=== PATIENT | male | born 1980 | race Caucasian/White ===

== ENCOUNTER 2018-07-31 11:12 | Outpatient (CLI) | payer MEDICAID, SELFPAY ==
[2018-07-31 11:35] LABS: Abs Immature Grans 0.02 k/cumm (0.0-0.09); Absolute Basophil Count 0.09 k/cumm (0.0-0.2); Absolute Eosinophil Count 0.34 k/cumm (0.0-0.7); Absolute Lymphocyte Count 2.02 k/cumm (1.2-3.4); Absolute Monocyte Count 0.98 k/cumm (0.11-0.7); Absolute Neutrophil Count 4.73 k/cumm (1.2-6.7); Basophils % 1.1; Eosinophils % 4.2; Immature Grans % 0.2; Lymphocytes % 24.7; Mean Corp. HGB Concentration 35.6 g/dL (32.0-36.0); Mean Corpuscular Hemoglobin 32.1 pg (27.0-33.0); Mean Corpuscular Volume 90.4 fL (80-95); Mean Platelet Volume 9.1 fL (8.0-11.0); Neutrophils % 57.8; Platelet Count 225 x1000/uL (130-400); RBC 4.98 m/cumm (4.50-6.00); RBC Distribution Width 12.4 % (11.8-14.1); White Blood Cell Count 8.18 k/cumm (4.4-10.8)
[2018-07-31 11:48] LABS: VALPROIC ACID 41.9 ug/mL (50-100)
[2018-07-31 12:49] LABS: ALT 35 U/L (12-78); AST 18 U/L (15-37); Albumin 4.2 g/dL (3.4-5.0); Alkaline Phosphatase 71 U/L (46-116); Anion Gap 13.2 mmol/L (3-11); BUN 8 mg/dL (7-18); Bilirubin, Total 0.2 mg/dL (0.2-1.0); CO2 28.8 mmol/L (21.0-32.0); CREATININE 0.75 mg/dL (0.70-1.30); Calcium 9.5 mg/dL (8.5-10.1); Chloride 97 mmol/L (98-107); Glucose 83 mg/dL (70-100); Potassium 3.7 mmol/L (3.5-5.1); Sodium 139 mmol/L (136-145); Total Protein 7.4 g/dL (6.4-8.2)
== END 2018-07-31 11:32 ==
PROVIDERS: PCP Nurse Practitioner Family; Visit Provider Nurse Practitioner Family
DX: F25.0 Schizoaffective disorder, bipolar type (principal); Z51.81 Encounter for therapeutic drug level monitoring; Z79.899 Other long term (current) drug therapy
CPT/HCPCS: 36415; 80053; 80164; 85025

== ENCOUNTER 2019-04-08 00:47 | Outpatient (CLI) | payer MEDICAID, SELFPAY ==
[2019-04-08] MEDS: Omnipaque 350 MG/ML 100 ML BTL IJ (09:59)
--- NOTE | 2019-04-08 15:00 | DI.CT_ITS ---
SYMPTOM/DIAGNOSIS: ABDOMINAL PAIN R10.9 CT ABDOMEN AND PELVIS: There are no prior comparison exams. Images performed from the lung bases through the ischial tuberosities after IV and oral contrast. The heart size is normal. The lung bases are clear. The liver, gallbladder, spleen, pancreas, kidneys and adrenals are unremarkable. The appendix appears normal. There is some wall thickening in the sigmoid colon likely representing muscular hypertrophy. Diverticula are seen in this region. There is no evidence of diverticulitis. There is no small bowel dilatation. No free air or free fluid is seen. The prostate and bladder appear normal. There are small bilateral fatty containing inguinal hernias. The aorta is normal in diameter. There has been prior anterior abdominal wall hernia repair. IMPRESSION: Diverticulosis. No acute abnormality.
== END 2019-04-08 01:07 ==
PROVIDERS: PCP Nurse Practitioner Family; Visit Provider Nurse Practitioner Family
DX: R10.9 Unspecified abdominal pain (principal); K57.30 Diverticulosis of large intestine without perforation or abscess without bleeding; K40.20 Bilateral inguinal hernia, without obstruction or gangrene, not specified as recurrent
CPT/HCPCS: 74177; J3490

== ENCOUNTER 2019-07-01 00:59 | Outpatient (CLI) | payer MEDICAID, SELFPAY ==
--- NOTE | 2019-07-01 10:06 | DI.US_ITS ---
APPROVED REPORT EXAM: Comprehensive 2D, Doppler, and color-flow Echocardiogram Patient Location: In-Patient [employer] Mixer: Margarita Mclaughlin [facility] ([place]) Rhythm: Tachycardia Indications: cardiac murmur r01.1 Conclusion Left Ventricle : The left ventricle is normal size. Left ventricular systolic function is hyperdynami c. There is top normal left ventricular wall thickness. There is normal LV segmental wall motion. LVE F is 65-70%. The left ventricular diastolic function is normal. Right Ventricle : Right ventricle is mildly dilated. The right ventricular systolic function is noemi l. Atria : The left atrium size is normal. The right atrium size is normal. Aortic Valve : The aortic valve is normal in structure. Aortic valve is trileaflet. No aortic regurgi tation is present. There is no aortic valvular stenosis. Mitral Valve : Mitral valve leaflets are mildly thickened. No evidence of mitral valve stenosis. Ther e is no mitral valve regurgitation noted. Tricuspid Valve : The tricuspid valve is normal in structure. Mild tricuspid regurgitation. Great Vessels : IVC is normal in size and collapses >50% with inspiration. Estimated RVSP is 24-28 m mHg. There is no prior echocardiogram available for comparison. Wall motion Left Ventricle The left ventricle is normal size. Left ventricular systolic function is hyperdynamic. There is top n ormal left ventricular wall thickness. There is normal LV segmental wall motion. The left ventricular diastolic function is normal. LVEF is 65-70%. Right Ventricle Right ventricle is mildly dilated. The right ventricular systolic function is normal. Atria The left atrium size is normal. The right atrium size is normal. Aortic Valve The aortic valve is normal in structure. Aortic valve is trileaflet. There is no aortic valvular sten osis. No aortic regurgitation is present. Mitral Valve Mitral valve leaflets are mildly thickened. No evidence of mitral valve stenosis. There is no mitral valve regurgitation noted. Tricuspid Valve The tricuspid valve is normal in structure. Mild tricuspid regurgitation. Great Vessels The aortic root is normal in size. IVC is normal in size and collapses >50% with inspiration. Estimat ed RVSP is 24-28 mmHg. Pericardium There is no pericardial effusion. 2D Dimensions IVSd 1.20 cm M: 0.6-1.2 LV EDV A2C 72.60 mL PWd 1.15 cm M: 0.6 - 1.2 LV EDV A4C 110.70 mL LVDd 4.15 cm M: 4.2 - 5.8 LA Volume Index A2C 15.75 mL/m2 LVDs 2.50 cm M: 2.5 - 4.0 LA Volume Index A4C 29.07 mL/m2 Aortic Root 3.00 cm M: 3.1 - 3.7 LA Volume Index Biplane 21.55 mL/m2 RA Area A4C 14.15 cm2 LA Area A4C 18.02 cm2 LVOT 2.05 cm (M/F) 1.5-2.5 LA Area A2C 13.35 cm2 Ascending Aorta 2.84 cm M: 2.6 - 3.4 EF AP4 74.80 % LVEF (Teich) 70.50 % EF AP2 66.53 % LVEF (Nogueira's) 70.92 % M: 52 - 72 EF BP 70.92 % LV Volume 67.43 mL M: 62 - 150 LV Volume Index 33.88 mL/m2 M: 34 - 74 FS 39.50 % LV Diastology E/A Ratio 1.1 MED E' 0.10 (>0.07 m/s) LV E/e MED 8.25 (<14) LAT E' 0.08 (>0.1 m/s) LV E/e LAT 9.50 (<14) Pulm Vein s 1.01 m/s PV S/D Ratio 2.02 Pulm Vein d 0.50 m/s Aortic Valve LVOT Area 3.31 cm2 LVOT Peak Abdi. 1.65 m/s LVOT Mean Abdi. 1.24 m/s LVOT Peak Gr. 11.45 mmHg NICKI Vmax Index 1.37 cm2/m2 LVOT Mean Gr. 6.80 mmHg LVOT VTI 0.25 m NICKI Mean Abdi. Index 1.41 cm2/m2 AoV Peak Abdi. 2.05 (0.5-1.3 m/s) AoV Mean Abdi. 1.46 m/s AO Peak GR. 16.73 mmHg AO Mean GR. 9.51 (<5 mmHg) VTI Ratio 0.75 NICKI (VTI) 2.48 (2.5-4.5 cm2) NICKI (VTI) Index 1.24 cm/m2 Mitral Valve MV E Max Abdi. 0.80 (0.4-1.3 m/s) MV A Velocity 0.75 (0.4-1.3 m/s) E/A Ratio 1.04 MV Decel. Time 207.30 (160-240 msec) MV PHT 60.12 msec MVA PHT 3.65 cm2 Pulmonary Valve RVOT Peak Gr. 5.13 mmHg RVOT Peak Abdi. 1.13 m/s RVOT Mean Gr. 3.70 mmHg RVOT VTI 0.20 m Tricuspid Valve TR P. Velocity 2.46 m/s TV Regurg Vmax 2.46 m/s RAP Estimate 3.00 mmHg RVSP 27.00 mmHg TR P. Gradient 24.20 mmHg
== END 2019-07-01 01:19 ==
PROVIDERS: PCP Nurse Practitioner Family; Visit Provider Nurse Practitioner Family
DX: R01.1 Cardiac murmur, unspecified (principal); I51.7 Cardiomegaly; I10 Essential (primary) hypertension
CPT/HCPCS: 93306

== ENCOUNTER 2019-09-24 09:51 | Outpatient (REF) | payer MEDICAID, SELFPAY ==
[2019-09-24 11:48] LABS: HGB 13.7 g/dL (13.5-17.5); Mean Corp. HGB Concentration 35.1 g/dL (32.0-36.0); Mean Corpuscular Hemoglobin 30.9 pg (27.0-33.0); Mean Corpuscular Volume 87.8 fL (80-95); Mean Platelet Volume 9.8 fL (8.0-11.0); Platelet Count 228 x1000/uL (130-400); RBC 4.44 m/cumm (4.50-6.00); RBC Distribution Width 12.3 % (11.8-14.1); White Blood Cell Count 7.31 k/cumm (4.4-10.8)
[2019-09-24 11:55] LABS: ALT 20 U/L (16-63); AST 28 U/L (15-37); Anion Gap 11.5 mmol/L (3-11); BUN 33 mg/dL (7-18); CO2 25.5 mmol/L (21.0-32.0); CREATININE 1.23 mg/dL (0.70-1.30); Calcium 9.3 mg/dL (8.5-10.1); Chloride 102 mmol/L (98-107); Glucose 105 mg/dL (74-106); Potassium 4.8 mmol/L (3.5-5.1); Sodium 139 mmol/L (136-145)
[2019-09-24 11:59] LABS: VALPROIC ACID 35.5 ug/mL (50-100)
[2019-09-25 11:43] LABS: Hepatitis C Ab w Rflx HCV PCR Negative (Negative)
[2019-09-25 11:45] LABS: HBs Antibody, Quant <3.1 mIU/mL (See Note); Hepatitis B Surface Ab Negative (See Note)
[2019-09-25 11:48] LABS: HIV-1/2 Ag & Ab Screen Negative (Negative)
== END 2019-09-24 10:11 ==
LOC: NCHCN 09:51
PROVIDERS: PCP Nurse Practitioner Family; Visit Provider Nurse Practitioner Family
DX: Z11.59 Encounter for screening for other viral diseases (principal); Z11.4 Encounter for screening for human immunodeficiency virus [HIV]; I10 Essential (primary) hypertension; Z51.81 Encounter for therapeutic drug level monitoring; Z00.00 Encounter for general adult medical examination without abnormal findings
CPT/HCPCS: 80048; 85027; 86706; 86803; 87389; 80164; 84450; 84460; 86702

== ENCOUNTER 2019-10-14 01:45 | Outpatient (CLI) | payer MEDICAID, SELFPAY ==
--- NOTE | 2019-10-14 08:45 | DI.MRI_ITS ---
EXAM: MR ABDOMEN WO CLINICAL HISTORY: scan above umbilicus to ASIS, H/O UMBILICAL HERNIA REPAIR, CHRONIC PAIN,Z98.890,Z8 7.19,G89.28,POST PROCEDURAL PAIN TECHNIQUE: Multiplanar multisequence MRI was performed. COMPARISON: CT ABDOMEN PELVIS W from 04/08/2019 FINDINGS: The exam is limited by respiratory motion. Again noted is evidence of an anterior abdominal wall h ernia repair. There has been no change in the appearance of the umbilicus with a small area of fatty containing hernia. No new hernias are identified. There are no abnormal collections in the anterio r abdominal wall. The liver, gallbladder, spleen, pancreas, adrenals and kidneys are unremarkable. Urinary bladder is nearly empty. There is no bowel dilatation. The aorta is normal in diameter. Th ere is no ascites. IMPRESSION: Stable appearance of anterior abdominal wall. No evidence of a new hernia or other acute abnormality . DATA REPOSITORY:
== END 2019-10-14 02:05 ==
PROVIDERS: PCP Nurse Practitioner Family; Visit Provider Surgery
DX: G89.28 Other chronic postprocedural pain (principal); Z98.890 Other specified postprocedural states; K42.9 Umbilical hernia without obstruction or gangrene
CPT/HCPCS: 74181

== ENCOUNTER 2019-11-22 11:44 | Emergency (ER) | payer MEDICAID, SELFPAY ==
[2019-11-22] VITALS (38 sets, daily range): BP systolic 93–129; BP diastolic 50–78; PULSE 96–119; RESP 12–26; TEMP 36.1; O2SAT 91–99
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
[2019-11-22 11:57] LABS: Abs Immature Grans 0.07 k/cumm (0.0-0.09); Absolute Basophil Count 0.06 k/cumm (0.0-0.2); Absolute Eosinophil Count 0.18 k/cumm (0.0-0.7); Absolute Monocyte Count 1.37 k/cumm (0.11-0.7); Absolute Neutrophil Count 6.75 k/cumm (1.2-6.7); Basophils % 0.5; Eosinophils % 1.4; HCT 33.7 % (40.0-50.0); HGB 12.2 g/dL (13.5-17.5); Immature Grans % 0.5 %; Lymphocytes % 34.3; Mean Corp. HGB Concentration 36.2 g/dL (32.0-36.0); Mean Corpuscular Hemoglobin 31.8 pg (27.0-33.0); Mean Corpuscular Volume 87.8 fL (80-95); Mean Platelet Volume 8.8 fL (8.0-11.0); Monocytes % 10.7; Neutrophils % 52.6; Platelet Count 343 x1000/uL (130-400); RBC 3.84 m/cumm (4.50-6.00); RBC Distribution Width 12.5 % (11.8-14.1); White Blood Cell Count 12.83 k/cumm (4.4-10.8)
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
[2019-11-22] MEDS: Omnipaque 350 MG/ML 100 ML BTL IJ (12:10)
[2019-11-22 12:11] LABS: VALPROIC ACID 61.1 ug/mL (50-100)
[2019-11-22] MEDS: Normal Saline - Diluent 50 ML VIAL IV (12:16)
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
[2019-11-22 12:48] LABS: ALT 27 U/L (16-63); AST 18 U/L (15-37); Albumin 3.5 g/dL (3.4-5.0); Alkaline Phosphatase 54 U/L (46-116); Anion Gap 11.2 mmol/L (3-11); BUN 27 mg/dL (7-18); Bilirubin, Total 0.3 mg/dL (0.2-1.0); CO2 25.8 mmol/L (21.0-32.0); CREATININE 1.51 mg/dL (0.70-1.30); Chloride 90 mmol/L (98-107); Estimated GFR 51.18 (mL/min/1.73m2); Glucose 133 mg/dL (74-106); Potassium 3.8 mmol/L (3.5-5.1); Sodium 127 mmol/L (136-145); Total Protein 6.5 g/dL (6.4-8.2); Troponin I < 0.05 ng/Ml (<0.06)
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
[2019-11-22] MEDS: Normal Saline 1,000 ML 125 ML IV (12:54)
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
[2019-11-22] MEDS: Ibuprofen 600 MG TAB PO (13:37)
[2019-11-22] MEDS: Acetaminophen 325 MG TAB 650 MG PO (13:38)
[2019-11-22] MEDS: Normal Saline 500 ML IV (13:45)
--- NOTE | 2019-11-22 15:13 | NUR.NOTE ---
Nursing Note: ORTHO referral faxed to ortho
[2019-11-22] MEDS: Lidocaine 5% Patch 1 PATCH (15:21)
[2019-11-22 15:55] LABS: Anion Gap 7.9 mmol/L (3-11); BUN 22 mg/dL (7-18); CO2 28.1 mmol/L (21.0-32.0); CREATININE 1.07 mg/dL (0.70-1.30); Calcium 8.3 mg/dL (8.5-10.1); Chloride 92 mmol/L (98-107); Glucose 112 mg/dL (74-106); Sodium 128 mmol/L (136-145)
--- NOTE | 2019-11-22 16:30 | NUR.NOTE ---
Nursing Note: Faxed PCP referral to PCP [facility]
[2019-11-22 16:43] LABS: TSH (W/Ref FT4) 0.82 uIU/mL (0.36-3.74)
== END 2019-11-22 16:40 | disposition home or self-care (01) ==
PROVIDERS: Physician Assistant; Emergency Provider Student in an Organized Health Care Education/Training Program; PCP Nurse Practitioner Family
DX: S32.018A Other fracture of first lumbar vertebra, initial encounter for closed fracture (principal); S32.028A Other fracture of second lumbar vertebra, initial encounter for closed fracture; V48.5XXA Car driver injured in noncollision transport accident in traffic accident, initial encounter; E87.1 Hypo-osmolality and hyponatremia; T50.2X5A Adverse effect of carbonic-anhydrase inhibitors, benzothiadiazides and other diuretics, initial encounter; I10 Essential (primary) hypertension
CPT/HCPCS: 74177; 80048; 80053; 86850; 86900; 86901; 96360; 96361; 99285; 70450; 71045; 71260; 72125; 72128; 72131; 80164; 84443; 84484; 85025; 99284; J3490

== ENCOUNTER 2019-12-24 09:34 | Outpatient (REF) | payer MEDICAID, SELFPAY ==
[2019-12-24 21:10] LABS: Anion Gap 8.6 mmol/L (3-11); BUN 27 mg/dL (7-18); CO2 30.4 mmol/L (21.0-32.0); CREATININE 1.17 mg/dL (0.70-1.30); Chloride 98 mmol/L (98-107); Glucose 75 mg/dL (74-106); Magnesium 2.1 mg/dL (1.8-2.4); Potassium 5.1 mmol/L (3.5-5.1); Sodium 137 mmol/L (136-145)
== END 2019-12-24 09:54 ==
LOC: NCHCN 09:34
PROVIDERS: PCP Nurse Practitioner Family; Visit Provider Nurse Practitioner Family
DX: E87.1 Hypo-osmolality and hyponatremia (principal); I10 Essential (primary) hypertension
CPT/HCPCS: 80048; 83735

== ENCOUNTER 2020-05-25 10:05 | Inpatient (IN) | payer MEDICAID, SELFPAY ==
[2020-05-25] VITALS (32 sets, daily range): BP systolic 125–174; BP diastolic 71–109; PULSE 75–102; RESP 8–23; TEMP 36.2–37.2; O2SAT 96–100
--- NOTE | 2020-05-25 10:00 | RT.EKG_ITS ---
APPROVED REPORT Exam: Resting ECG Patient Location: E HR:95 bpm ECG Measurements Heart Rate 95 AXIS MA 155 P 54 QRSd 106 QRS 65 QT 359 T 35 QTc 452 Conclusion Sinus rhythm...normal P axis, V-rate 60- 99 Left atrial enlargement...P, P'>60mS, <-0.15mV V1 ST elev, probable normal early repol pattern...ST elevation, age<55. Peaked T waves in V3-5. Suspect early repol at this time most prominent in II, III, aVF. No STEMI. I have reviewed and interpreted ECG and agree with software generated interpretation.
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
[2020-05-25] MEDS: Aspirin 81 MG CHEW 324 MG CH (10:28)
[2020-05-25] MEDS: Normal Saline 1,000 ML 1000 ML IV (10:34)
[2020-05-25] MEDS: nitroGLYcerin 0.4 MG TAB SL ×4 (10:34→19:45)
[2020-05-25] MEDS: MORPHine 10 MG/ML VIAL 4 MG IVP (10:41)
[2020-05-25 10:48] LABS: Abs Immature Grans 0.03 10^3/uL (0.0-0.06); Absolute Basophil Count 0.06 10^3/uL (0.0-0.2); Absolute Eosinophil Count 0.13 10^3/uL (0.0-0.7); Absolute Lymphocyte Count 2.39 10^3/uL (1.2-3.4); Absolute Neutrophil Count 7.55 10^3/uL (1.2-6.7); Basophils % 0.5; Eosinophils % 1.2; HCT 43.7 % (40.0-50.0); HGB 14.9 g/dL (13.5-17.5); Immature Grans % 0.3; Lymphocytes % 21.6; MCH 30.7 pg (27.0-33.0); MCHC 34.1 % (32.0-36.0); MCV 89.9 fL (80-95); MPV 9.2 fL (8.0-11.0); Monocytes % 8.1; Neutrophils % 68.3; Nucleated RBC 0 %; Platelet Count 285 10^3/uL (130-400); RBC 4.86 10^6/uL (4.36-5.78); RDW 11.9 % (11.8-14.1); RDW-SD 39.3 fL; WBC 11.05 10^3/uL (4.4-10.8)
[2020-05-25 10:52] LABS: ALT 15 U/L (16-63); AST 7 U/L (15-37); Albumin 3.3 g/dL (3.4-5.0); Alkaline Phosphatase 73 U/L (46-116); Anion Gap 8.3 mmol/L (3-11); BUN 12 mg/dL (7-18); Bilirubin, Total 0.2 mg/dL (0.2-1.0); CO2 28.7 mmol/L (21.0-32.0); CREATININE 0.86 mg/dL (0.70-1.30); Calcium 9.1 mg/dL (8.5-10.1); Chloride 102 mmol/L (98-107); Glucose 89 mg/dL (74-106); Magnesium 1.9 mg/dL (1.8-2.4); Potassium 3.8 mmol/L (3.5-5.1); Sodium 139 mmol/L (136-145); Total Protein 6.9 g/dL (6.4-8.2)
[2020-05-25 10:53] LABS: Troponin I < 0.05 ng/mL (<0.06)
--- NOTE | 2020-05-25 11:23 | DI.RAD_ITS ---
EXAM: XR CHEST 2V PA LATERAL CLINICAL HISTORY: Chest Pain TECHNIQUE: 2D digital imaging was performed. COMPARISON: CR,XR XR PORTABLE CHEST AP from 11/22/2019 FINDINGS: MEDIASTINUM: Normal. HEART: Normal. PULMONARY VASCULATURE: Normal. LUNGS: Clear. PLEURAL SPACE: No pleural effusion or pneumothorax. BONE:Normal. OTHER FINDINGS:Normal. IMPRESSION: No acute pulmonary findings. DATA REPOSITORY: RADIATION DOSE DELIVERED:
--- NOTE | 2020-05-25 11:30 | RT.EKG_ITS ---
APPROVED REPORT Exam: Resting ECG Patient Location: E HR:88 bpm ECG Measurements Heart Rate 88 AXIS NM 157 P 41 QRSd 106 QRS 55 QT 375 T 21 QTc 455 Conclusion Sinus rhythm...normal P axis, V-rate 60- 99 ST elev, probable normal early repol pattern...ST elevation, age<55. Peaked T waves in V2-5, less prominent than previous. Suspect early repol in II, III, aVF, V6. No STEMI. I have reviewed and interpreted ECG and agree with software generated interpretation.
[2020-05-25] MEDS: Acetaminophen 325 MG TAB 650 MG PO ×2 (13:30→16:55)
[2020-05-25 13:58] LABS: Troponin I < 0.05 ng/mL (<0.06)
[2020-05-25 13:58] LABS: D-Dimer 1728 ng/mlFEU (<500)
--- NOTE | 2020-05-25 14:00 | DI.CT_ITS ---
EXAM: CT CHEST PE CTA CLINICAL HISTORY: Elevated Ddimer, chest pain. TECHNIQUE: Imaging Protocol: Axial CT angiography was performed with multi-slice acquisition and mu lti-planar and/or 3D reconstructions. CONTRAST MATERIAL: Intravenous: Omnipaque 350 Contrast volume:70 COMPARISON: CT CHEST/ABD/PEL W from 11/22/2019 FINDINGS: Pulmonary Arteries: No evidence of filling defect to suggest pulmonary emboli. Tracheobronchial tree: Patent where visualized. Mediastinum and Flores: No dominant adenopathy or fluid collection. Pulmonary parenchyma: No consolidation or dominant measurable mass. Dependent changes posteriorly.. There are a few blebs in the right lung apex. Pleura: No effusion or pneumothorax. Heart: The heart is not dilated. No coronary artery calcifications are seen. Aorta: Thoracic aorta non-dilated. Upper abdomen: Unremarkable. Bones: Minimal degenerative disc changes. IMPRESSION: No evidence of pulmonary embolism or other acute abnormality.. RADIATION DOSE DELIVERED: 397.51mGy.cm Total DLP DATA REPOSITORY: All CT scans at this facility are submitted to the National Radiology Data Registry (NRDR) Dose Index Registry (DIR) with the [employer] ([employer]). RADIATION OPTIMIZATION: All CT scans at this facility use at least one of these dose optimization te chniques: automated exposure control; mA and/or kV adjustment per patient size (includes targeted exa ms where dose is matched to clinical indication); or iterative reconstruction.
[2020-05-25] MEDS: Omnipaque 350 MG/ML 100 ML BTL IJ (14:28)
[2020-05-25] MEDS: nitroGLYcerin 2% 1 INCH/1 GM PKT TP (14:45)
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
[2020-05-25 16:38] LABS: TSH 0.73 uIU/mL (0.36-3.74)
[2020-05-25 16:45] LABS: Hemoglobin A1C 5.5 % (<5.7)
[2020-05-25] MEDS: Lidocaine 5% Patch 2 PATCH TP (17:04)
[2020-05-25] MEDS: Ibuprofen 800 MG TAB PO (19:43)
[2020-05-25] MEDS: clonazePAM 1 MG TAB PO (19:43)
[2020-05-25] MEDS: Divalproex 500 MG TABEC 1000 MG PO (19:44)
[2020-05-25 20:04] LABS: Troponin I < 0.05 ng/mL (<0.06)
[2020-05-25] MEDS: traZODone 100 MG TAB PO (21:51)
[2020-05-25] MEDS: chlorproMAZINE 25 MG TAB 150 MG PO (21:52)
[2020-05-26] VITALS (26 sets, daily range): BP systolic 103–200; BP diastolic 68–113; PULSE 78–111; RESP 14–22; TEMP 35.7–37.1; O2SAT 97–100
[2020-05-26] MEDS: Patch Removal 2 EACH TP (06:23)
[2020-05-26 07:16] LABS: Calculated LDL 93 mg/dL (<100); Cholesterol 140 mg/dL (<200); HDL Cholesterol 30 mg/dL (40-60); Triglyceride 85 mg/dL (<150); VALPROIC ACID 51.9 ug/mL (50-100)
[2020-05-26] MEDS: Nicotine 14 MG/24 HR PATCH TD (08:23)
[2020-05-26] MEDS: chlorproMAZINE 25 MG TAB 100 MG PO (08:25)
[2020-05-26] MEDS: Lisinopril 20 MG TAB 40 MG PO (08:26)
[2020-05-26] MEDS: clonazePAM 1 MG TAB PO ×2 (08:26→19:27)
[2020-05-26] MEDS: Ibuprofen 800 MG TAB PO ×3 (08:27→19:26)
[2020-05-26] MEDS: Divalproex 500 MG TABEC PO (08:27)
[2020-05-26] MEDS: Normal Saline Flush 10 ML SYR IVP ×3 (08:30→22:07)
[2020-05-26 08:33] LABS: COVID-19 RT-PCR UVMMC Result Negative (Negative)
--- NOTE | 2020-05-26 09:00 | RT.EKG_ITS ---
APPROVED REPORT Exam: Resting ECG Patient Location: I HR:94 bpm ECG Measurements Heart Rate 94 AXIS LA 142 P 47 QRSd 100 QRS 74 QT 345 T 41 QTc 433 Conclusion Sinus rhythm...normal P axis, V-rate 60- 99 Probable left atrial enlargement...P >50mS, <-0.10mV V1 ST elev, probable normal early repol pattern...ST elevation, age<55
[2020-05-26 09:15] LABS: *AMPHETAMINES SCREEN URINE Negative (Negative); *BARBITURATES SCREEN URINE Negative (Negative); *BENZODIAZEPINES SCREEN URINE Negative (Negative); Cannabinoids THC POSITIVE (Negative); Cocaine Screen,Urine Negative (Negative); METHADONE URINE SCREEN Negative (Negative); OPIATES URINE SCREEN POSITIVE (Negative)
[2020-05-26 09:19] LABS: Tricyclic Antidepressants Negative (Negative)
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
[2020-05-26] MEDS: nitroGLYcerin 0.4 MG TAB SL ×6 (10:31→20:16)
[2020-05-26] MEDS: Mylanta Suspension 30 ML CUP PO ×3 (10:53→20:24)
[2020-05-26] MEDS: Pantoprazole 40 MG VIAL IVP (12:21)
--- NOTE | 2020-05-26 14:47 | W.PM.PROGNOT ---
Date of Service Date of service: 05/26/20 Time of Service: 14:47 Assessment and Plan Assessment and plan (1) Chest pain: Status: Acute Assessment and plan: No ACS, but the reproducible response to nitroglycerin and nursing description of patient during symptoms is concerning. Will obtain an MPI tomorrow. NPO after midnight. Echo is reassuring and, if MPI is negative, we should strongly consider esophageal spasms. I think his left-sided hand symptoms are more c/w CTS. (2) Breakthrough seizure: Status: Resolved Assessment and plan: Prior to admission. The patient is not very compliant with his therapy, but we were able to confirm which medications he takes. Depakote level is therapeutic. Will consult neurology. I have set up an alarm on the patient's phone to remind him to take medications in the morning and at night. (3) Chronic musculoskeletal 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: Status: Chronic Assessment and plan: Pain is usually abdominal and different from the pain the patient is currently having. (4) Hypertension: Status: Chronic Assessment and plan: BP ok on lisinopril. NO change in tx. (5) Hyperlipidemia: Status: Chronic Assessment and plan: LDL at goal. HDL slightly low. Would not initiate medication at this time. (6) Tobacco abuse: Status: Chronic Assessment and plan: Advised to quit. Patient requests nicotrol inhaler - will write. (7) Mood disorder: Status: Chronic Assessment and plan: Bipolar d/o 1, schizoaffective d/o, anxiety d/o, depression, PTSD, and OCD. ?Schizophrenia (the patient endorses having it). Continue outpatient management. Meds verified. (8) DVT prophylaxis: Status: Acute Assessment and plan: Start lovenox SC (9) Discharge planning issues: Status: Acute Assessment and plan: Full code Anticipate discharge tomorrow. Subjective Subjective Interval history since last seen: The patient had several episodes of chest pain today, which were relieved with a combination of nitroglycerin and GI cocktail. The patient's pain is minimal now and is not reproducible with palpation. Per nursing, the patient looked visibly pale when he was having the pain and was in obvious distress. On Telemetry, he had 1 episodes of Sinus tach at 3:05 am (circumstances unclear); max HR was 119. His HR was noted to be in 150s at 5:13 am when he got up and was walking around the room. Denies dizziness, reports a headache, denies shortness of breath or nausea. States that his left hand has had numbness and tingling, he states that it is the palmar surface surface of his hand and goes up all the way to his elbow. All 5 fingers are involved, he thinks. He is left-handed and, sometimes, he drops the hammer at work because the hand is weak. He states he does not know how many breakthrough seizures he has had. He knows he had one a few days ago because he woke up disoriented. He states he hasn't had any seizures at work. OTherwise, he states he is frequently unaware of having them. We were able to confirm the patient's medications with his pharmacy. The patient states that he forgets to take his medications sometimes. With the patient's permission, I have put alarms for him to take his medications in the morning and at night into his smart phone. Exam Narrative Exam Narrative: General: Middle-aged male, looks better today than he did yesterday. HEENT: EOMI, MMM Cardiovascular: RRR, no m/r/g Lungs: CTAB Gastrointestinal: soft, nontender, nondistended Extremities: no edema BLE's Objective Last Vital Signs Temp 36.4 C L 05/26/20 13:57 Pulse 100 H 05/26/20 13:57 Resp 16 05/26/20 13:57 BP 132/81 05/26/20 13:57 Pulse Ox 100 05/26/20 13:57 Laboratory Results - last 24 hr 05/25/20 05/25/20 05/25/20 10:31 10:31 16:14 Sodium 139 Potassium 3.8 Chloride 102 Carbon Dioxide 28.7 Anion Gap 8.3 BUN 12 Creatinine 0.86 Estimated GFR/1.73 m2 >= 60.00 Glucose 89 Hemoglobin A1c 5.5 Calcium 9.1 Magnesium 1.9 Total Bilirubin 0.2 AST 7 L ALT 15 L Alkaline Phosphatase 73 Troponin I < 0.05 Total Protein 6.9 Albumin 3.3 L Triglycerides Total Cholesterol LDL Cholesterol, Calc HDL Cholesterol TSH 0.73 Urine Opiates Screen Urine Methadone Screen Ur Barbiturates Screen Total Valproic Acid Ur Tricyclics Screen Ur Amphetamines Screen U Benzodiazepines Scrn Urine Cocaine Screen Ur THC Screen COVID-19 PCR Negative Nasopharyn COVID-19 PCR Not Applicable Ref Test Perform Site [facility] 05/25/20 05/25/20 05/26/20 16:18 19:35 06:10 Sodium Potassium Chloride Carbon Dioxide Anion Gap BUN Creatinine Estimated GFR/1.73 m2 Glucose Hemoglobin A1c Calcium Magnesium Total Bilirubin AST ALT Alkaline Phosphatase Troponin I < 0.05 Total Protein Albumin Triglycerides 85 Total Cholesterol 140 LDL Cholesterol, Calc 93 HDL Cholesterol 30 L TSH Urine Opiates Screen Urine Methadone Screen Ur Barbiturates Screen Total Valproic Acid Ur Tricyclics Screen Ur Amphetamines Screen U Benzodiazepines Scrn Urine Cocaine Screen Ur THC Screen COVID-19 PCR Cancelled Nasopharyn COVID-19 PCR Cancelled Ref Test Perform Site Cancelled 05/26/20 05/26/20 06:10 08:45 Sodium Potassium Chloride Carbon Dioxide Anion Gap BUN Creatinine Estimated GFR/1.73 m2 Glucose Hemoglobin A1c Calcium Magnesium Total Bilirubin AST ALT Alkaline Phosphatase Troponin I Total Protein Albumin Triglycerides Total Cholesterol LDL Cholesterol, Calc HDL Cholesterol TSH Urine Opiates Screen Positive A Urine Methadone Screen Negative Ur Barbiturates Screen Negative Total Valproic Acid 51.9 Ur Tricyclics Screen Negative Ur Amphetamines Screen Negative U Benzodiazepines Scrn Negative Urine Cocaine Screen Negative Ur THC Screen Positive A COVID-19 PCR Nasopharyn COVID-19 PCR Ref Test Perform Site Objective Narrative Objective Narrative: Echo: Left Ventricle The left ventricle is normal size. The left ventricular systolic function is normal. The left ventricular ejection fraction is within the normal range. There is normal left ventricular wall thickness. There is normal LV segmental wall motion. There is no ventricular septal defect visualized. LVEF is 55%. Right Ventricle The right ventricle is normal size. The right ventricular systolic function is normal. The RVSP is 24.3mmHg. Atria The left atrium size is normal. The right atrium size is normal. The interatrial septum is intact with no evidence for an atrial septal defect. Aortic Valve The aortic valve is normal in structure. Aortic valve is trileaflet. There is no aortic valvular stenosis. No aortic regurgitation is present. Mitral Valve The mitral valve is normal in structure. No evidence of mitral valve stenosis. Trace mitral regurgitation. Tricuspid Valve The tricuspid valve is normal in structure. There is no tricuspid valve stenosis. Trace tricuspid regurgitation. Pulmonic Valve The pulmonary valve is normal in structure. There is no pulmonic valvular stenosis. There is no pulmonic valvular regurgitation. Great Vessels The aortic root is normal in size. The ascending aorta is normal in size. Aortic arch is normal in caliber. IVC is normal in size and collapses >50% with inspiration. Pericardium There is no pericardial effusion.
[2020-05-26] MEDS: Acetaminophen 325 MG TAB 650 MG PO ×2 (15:26→20:25)
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
--- NOTE | 2020-05-26 16:38 | PHA.REVIEW ---
Pharmacy Admission Review - Admission Clinical Review (Last Updated 05/25/20 @ 16:13 by Nia Thompson MD) Discharge planning issues (Acute) DVT prophylaxis (Acute) Chest pain (Acute) mushroom Allergy (Severe, Verified 05/25/20 10:16) Anaphylaxsis Height 5 ft 8 in Weight 66 kg - Renal Dosing Renal Dosing: BUN 12 mg/dL (7-18) 05/25/20 10:31 Creatinine 0.86 mg/dL (0.70-1.30) 05/25/20 10:31 Medications needing adjustments: Reviewed - Anticoagulation Anticoagulation: Hgb 14.9 g/dL (13.5-17.5) 05/25/20 10:31 Hct 43.7 % (40.0-50.0) 05/25/20 10:31 Plt Count 285 10^3/uL (130-400) 05/25/20 10:31 Creatinine 0.86 mg/dL (0.70-1.30) 05/25/20 10:31 DVT Prohphylaxis: Reviewed Medications: Enoxaparin (start today per MD note) - Relevant Labs Sodium 139 mmol/L (136-145) 05/25/20 10:31 Potassium 3.8 mmol/L (3.5-5.1) 05/25/20 10:31 Chloride 102 mmol/L (98-107) 05/25/20 10:31 Magnesium 1.9 mg/dL (1.8-2.4) 05/25/20 10:31 Electrolytes, C-Reactive P, ESR: Reviewed - DM Control DM Control: Glucose 89 mg/dL (74-106) 05/25/20 10:31 Hemoglobin A1c 5.5 % (<5.7) 05/25/20 10:31 Insulin Dosing: N/A - Heart Failure/WV Heart Failure/WV: Troponin I < 0.05 ng/mL (<0.06) 05/25/20 19:35 EF%, ITA's, B-Blockers, Diuretics: Reviewed - BP Control BP Control: Blood Pressure 133/89 Blood Pressure 132/81 Blood Pressure 154/86 Blood Pressure 112/74 Blood Pressure 103/68 Blood Pressure 135/77 Blood Pressure 153/84 Blood Pressure 124/80 Blood Pressure 144/89 Blood Pressure 136/75 Blood Pressure 133/88 If elevated: Reviewed - Qtc Review If Elevated: Reviewed List meds needing interventions: QTc 452 - IV to PO Switch IV Medications: Reviewed - Home Meds Home Med List reviewed: Reviewed Relevent Home Meds Not ordered & why?: JAIME/ was able to obtain med list from pharmacy/office, current home med list is confirmed - Current meds Current Medication Order Review: Intervened (added patch removal for nicotine patch)
--- NOTE | 2020-05-26 17:30 | RT.EKG_ITS ---
APPROVED REPORT Exam: Resting ECG Patient Location: I HR:85 bpm ECG Measurements Heart Rate 85 AXIS ME 154 P 55 QRSd 106 QRS 70 QT 372 T 36 QTc 442 Conclusion Sinus rhythm...normal P axis, V-rate 60- 99 Probable left atrial enlargement...P >50mS, <-0.10mV V1 ST elev, probable normal early repol pattern...ST elevation, age<55
[2020-05-26] MEDS: Lidocaine 5% Patch 2 PATCH TP (18:40)
[2020-05-26] MEDS: Divalproex 500 MG TABEC 1000 MG PO (19:25)
--- NOTE | 2020-05-26 20:43 | PGE_ITS ---
Date of Service Date of service: 05/26/20 Time of Service: 20:43 Subjective Subjective Interval history since last seen: Called for CP. Admitted yesterday with atypical CP, has ruled out by enzymes. EKG shows early repolarization pattern inferior leads, unchanged form prior. CTA chest negative. Cardiac U/S normal. Scheduled for ETT in AM. No response to NTG x3, Mylanta or APAP. Recently received Motrin 800. On exam 150/100, pulse 85. hyperventilating, delayed answers to questions. Lungs clear; heart RRR w/o MRG; chest mild left parasternal tenderness. A/P Atypical CP. No clear diagnosis at present but no evidence of cardiopulmo nary etiology. There does appear to be at least a component of anxiety though I cannot say exclusively so. Exam also suggests possible musculoskeletal element, though again not necessarily exclusively. Will give dose Ativan, continue scheduled NSAIDs and await ETT. Objective Last Vital Signs Temp 37 C 05/26/20 15:34 Pulse 88 05/26/20 15:34 Resp 16 05/26/20 15:34 BP 133/89 05/26/20 15:34 Pulse Ox 100 05/26/20 15:34 Laboratory Results - last 24 hr 05/25/20 05/26/20 05/26/20 16:14 06:10 06:10 Triglycerides 85 Total Cholesterol 140 LDL Cholesterol, Calc 93 HDL Cholesterol 30 L Urine Opiates Screen Urine Methadone Screen Ur Barbiturates Screen Total Valproic Acid 51.9 Ur Tricyclics Screen Ur Amphetamines Screen U Benzodiazepines Scrn Urine Cocaine Screen Ur THC Screen COVID-19 PCR Negative Nasopharyn COVID-19 PCR Not Applicable Ref Test Perform Site [place] [facility] 05/26/20 08:45 Triglycerides Total Cholesterol LDL Cholesterol, Calc HDL Cholesterol Urine Opiates Screen Positive A Urine Methadone Screen Negative Ur Barbiturates Screen Negative Total Valproic Acid Ur Tricyclics Screen Negative Ur Amphetamines Screen Negative U Benzodiazepines Scrn Negative Urine Cocaine Screen Negative Ur THC Screen Positive A COVID-19 PCR Nasopharyn COVID-19 PCR Ref Test Perform Site
[2020-05-26] MEDS: LORazepam 2 MG/ML VIAL 1 MG IVP (20:52)
[2020-05-26] MEDS: traZODone 100 MG TAB PO (21:54)
[2020-05-26] MEDS: chlorproMAZINE 25 MG TAB 150 MG PO (21:54)
[2020-05-27] VITALS (8 sets, daily range): BP systolic 105–152; BP diastolic 68–91; PULSE 78–97; RESP 18–20; TEMP 36.5–36.8; O2SAT 95–100
[2020-05-27] MEDS: Acetaminophen 325 MG TAB 650 MG PO (03:50)
[2020-05-27] MEDS: Patch Removal 2 EACH TP (06:15)
[2020-05-27] MEDS: nitroGLYcerin 0.4 MG TAB SL ×3 (06:23→07:38)
[2020-05-27] MEDS: Divalproex 500 MG TABEC 1000 MG PO (07:38)
--- NOTE | 2020-05-27 08:00 | DI.NM_ITS ---
APPROVED REPORT Exam: Exercise Treadmill Patient Location: In-Patient Room/Bed: 214 Stress Nurse: Cassie Shah RN BMI: 22.04 Baseline Rhythm: Sinus Rhythm Comment: borderline ST elevation noted in leads II, III, aVF, V2, V3, V4, V5, V6 Indications: 2 weeks of intermittent sharp left chest pain, symptomatic, and relieved with nitro admi nistration. Medical History Medical History: Hyperlipidemia, HTN, Smoking, Anxiety Cardiac Medications: Lisinopril. Allergies: No known drug allergies Cardiac Risk Factors: HTN, Hyperlipidemia, Smoking (current) Pretest Chest Pain Characteristics: Non-exertional Chest pain (09/22) Exercise History: Physically active Lung Sounds: Clear to auscultation Heart Sounds: Regular Stress Test Details Test: Exercise stress testing was performed using a Humberto protocol. Nuclear Acquisition: Rest Tc-99m/Stress Tc-99m 1 day Rest Isotope: Tc-99m Sestamibi. Dose: 11.2 Date: 05/27/2020 Injection Time: 1130 Stress Isotope: Tc-99m Sestamibi. Dose: 37 Date: 05/27/2020 Injection Time: 1400 HR Resting HR Supine: 84 bpm Max Heart Rate (APMHR): 178 bpm Resting HR Standin bpm Target HR (85% APMHR): 151 bpm Max HR Achieved: 164 bpm % of APMHR: 92 Recovery HR: 109 bpm HR response to stress: Normal HR response to stress BP Resting BP Supine: 120/76 mmHg Resting BP Standin/70 mmHg Max BP: 160/58 mmHg Recovery BP: 134/76 mmHg BP response to stress: Normal blood pressure response to stress. ECG Resting ECG: borderline ST elevation noted in leads II, III, aVF, V2, V3, V4, V5, V6 Stress ECG: Sinus Tachycardia ST Change: no significant ST segement changes noted. Arrhythmia: None Recovery ECG: Sinus Tachycardia Recovery ST Change: Normal Recovery Arrhythmia: None Clinical Reason for Termination: Fatigue Stress Symptoms: Dyspnea, Chest pain (from 09/22 to 10/20) Exercise duration: 13 min43 sec Highest Stage Reached: Stage 5: 5.0 mph at 18% grade. Exercise capacity: 14.66 METs Stress ECG Conclusion 1. The patient exercised for 14 minutes (15 minutes). Patient developed chest pain that was nonlimit ing. Exercise was terminated due to dyspnea. 2. The patient had no evidence of ischemia on the EKG portion of the exam. Stress Test Summary STAGE Time (mins) Speed (mph) Grade (%) HR BP SYMPTOMS METS Supine 84 120/76 2/10 chest pain Standing 115 110/70 2/10 chest pain 1 3 1.7 10 121 124/68 2/10 chest pain 4.6 2 6 2.5 12 129 138/68 2/10 chest pain 7 3 9 3.4 14 141 148/66 3/10 chest pain 10.2 4 12 4.2 16 150 3/10 chest pain 12.9 1 min recovery 152 160/58 3/10 chest pain 3 min recovery 119 156/70 2/10 chest pain 6 min recovery 108 132/72 2/10 chest pain 9 min recovery 109 134/76 2/10 chest pain MPI Conclusion The patient's ejection fraction was 50% with stress. There were no wall motion abnormalities. There was no evidence of ischemia on the imaging part of the exam. This represents a normal SPECT stress test. Radiologist Interpretation Radiologist Interpretation by: Abrahan Truong MD Interpretation Date/Time: 05/27/2020 15:58:36
[2020-05-27] MEDS: clonazePAM 1 MG TAB PO (08:58)
[2020-05-27] MEDS: chlorproMAZINE 25 MG TAB 100 MG PO (09:03)
[2020-05-27] MEDS: Ibuprofen 800 MG TAB PO (15:01)
[2020-05-27] MEDS: Pantoprazole 40 MG VIAL IVP (15:01)
[2020-05-27] MEDS: Normal Saline Flush 10 ML SYR IVP (15:02)
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
== END 2020-05-27 19:06 | disposition home or self-care (01) | DRG 313 ==
LOC: ER 16:08 → MS 16:10
PROVIDERS: Internal Medicine; Admitting Provider Internal Medicine; Emergency Provider Registered Nurse Emergency; PCP Nurse Practitioner Family; Visit Provider Internal Medicine
DX: R07.89 Other chest pain (principal); K22.4 Dyskinesia of esophagus; K20.90 Esophagitis, unspecified without bleeding; G40.909 Epilepsy, unspecified, not intractable, without status epilepticus; R20.0 Anesthesia of skin; Z91.14 Patient's other noncompliance with medication regimen; F17.210 Nicotine dependence, cigarettes, uncomplicated; Z03.818 Encounter for observation for suspected exposure to other biological agents ruled out; M79.18 Myalgia, other site; F25.0 Schizoaffective disorder, bipolar type; F41.9 Anxiety disorder, unspecified
CPT/HCPCS: 36415; 71275; 78452; 80053; 80061; 80307; 90686; 93005; 96361; 96374; 96376; 99220; 99223; 99225; 99231; 99232; 99239; 99285; U0003; 71046; 80164; 83036; 83735; 84443; 84484; 85025; 85379; 93010; 93017; 93306; G0378; J2060; J2270; J3490

== ENCOUNTER 2020-06-23 04:44 | Outpatient (CLI) | payer MEDICAID, SELFPAY ==
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
== END 2020-06-23 05:04 ==
PROVIDERS: PCP Nurse Practitioner Family; Visit Provider Psychiatry & Neurology Neurology
DX: R40.4 Transient alteration of awareness; R41.89 Other symptoms and signs involving cognitive functions and awareness; Z86.69 Personal history of other diseases of the nervous system and sense organs
CPT/HCPCS: 95711

== ENCOUNTER 2021-01-28 02:53 | Outpatient (CLI) | payer MEDICAID, SELFPAY ==
[2021-01-28 16:41] LABS: Abs Immature Grans 0.01 10^3/uL (0.0-0.06); Absolute Basophil Count 0.08 10^3/uL (0.0-0.2); Absolute Eosinophil Count 0.11 10^3/uL (0.0-0.7); Absolute Lymphocyte Count 2.47 10^3/uL (1.2-3.4); Absolute Monocyte Count 0.71 10^3/uL (0.1-0.8); Absolute Neutrophil Count 5.11 10^3/uL (1.2-6.7); Basophils % 0.9; Eosinophils % 1.3; HCT 45.7 % (40.0-50.0); HGB 15.7 g/dL (13.5-17.5); Immature Grans % 0.1; Lymphocytes % 29.1; MCH 30.4 pg (27.0-33.0); MCHC 34.4 % (32.0-36.0); MCV 88.6 fL (80-95); MPV 9.1 fL (8.0-11.0); Monocytes % 8.4; Neutrophils % 60.2; Nucleated RBC 0 %; Platelet Count 237 10^3/uL (130-400); RBC 5.16 10^6/uL (4.36-5.78); RDW-SD 42.6 fL; WBC 8.49 10^3/uL (4.4-10.8)
[2021-01-28 17:01] LABS: VALPROIC ACID 53.6 ug/mL (50-100)
[2021-01-28 17:52] LABS: ALT 25 U/L (16-63); AST 13 U/L (15-37); Albumin 3.8 g/dL (3.4-5.0); Alkaline Phosphatase 86 U/L (46-116); BUN 19 mg/dL (7-18); Bilirubin, Direct 0.1 mg/dL (0.0-0.2); Bilirubin, Total 0.2 mg/dL (0.2-1.0); CREATININE 0.8 mg/dL (0.70-1.30); Chloride 105 mmol/L (98-107); Glucose 98 mg/dL (74-106); Potassium 4.4 mmol/L (3.5-5.1); Sodium 142 mmol/L (136-145); Total Protein 6.8 g/dL (6.4-8.2)
[2021-01-31 02:35] LABS: Vitamin D 25 Total 28.7 ng/mL (30-100)
== END 2021-01-28 02:54 | disposition home or self-care (01) ==
LOC: LBO 02:53
PROVIDERS: PCP Nurse Practitioner Family; Visit Provider Counselor Addiction (Substance Use Disorder)
DX: F25.0 Schizoaffective disorder, bipolar type (principal); Z51.81 Encounter for therapeutic drug level monitoring; Z79.899 Other long term (current) drug therapy; E55.9 Vitamin D deficiency, unspecified
CPT/HCPCS: 36415; 80053; 80076; 82306; 80164; 85025

== ENCOUNTER 2021-03-16 14:39 | Outpatient (CLI) | payer MEDICAID, SELFPAY ==
--- NOTE | 2021-03-16 14:30 | DI.RAD_ITS ---
Exam(s) XR SHOULDER RT COMPLETE 2+V EXAM: XR SHOULDER RT COMPLETE 2+V CLINICAL HISTORY: shoulder pain. TECHNIQUE: 2D digital imaging was performed. COMPARISON: CR XR SHOULDER LT COMPLETE 2+V from 03/16/2021 FINDINGS: No evidence of fracture or dislocation. No joint space narrowing. No osteophytes. No abnormal soft tissue calcifications. Bone density appears normal. Mild degenerative changes AC joint. No osseou s lesions. IMPRESSION: DATA REPOSITORY: RADIATION DOSE DELIVERED:
--- NOTE | 2021-03-16 14:30 | DI.RAD_ITS ---
Exam(s) XR SHOULDER LT COMPLETE 2+V EXAM: XR SHOULDER LT COMPLETE 2+V CLINICAL HISTORY: shoulder pain. TECHNIQUE: 2D digital imaging was performed. COMPARISON: No exams were available for comparison FINDINGS: No evidence of fracture nor dislocation. No joint space narrowing. No soft tissue calcifications. No osteophytes. Bone density appears normal. IMPRESSION: DATA REPOSITORY: RADIATION DOSE DELIVERED:
== END 2021-03-16 14:40 | disposition home or self-care (01) ==
LOC: DIORS 14:39
PROVIDERS: PCP Nurse Practitioner Family; Visit Provider Physician Assistant
DX: M25.512 Pain in left shoulder (principal); M25.511 Pain in right shoulder
CPT/HCPCS: 73030

== ENCOUNTER 2021-04-20 01:45 | Outpatient (CLI) | payer MEDICAID, SELFPAY ==
--- NOTE | 2021-04-20 | DI.RAD_ITS ---
Exam(s) XR SHOULDER LT COMPLETE 2+V EXAM: XR SHOULDER LT COMPLETE 2+V CLINICAL HISTORY: ACUTE PAIN OF LT SHOULDER, M25.512, S/P FALL, ?POSTERIOR DISLOCATION/INJURY. TECHNIQUE: 2D digital imaging was performed. COMPARISON: CR XR SHOULDER RT COMPLETE 2+V from 03/16/2021 FINDINGS: Four views of the left shoulder reveal no evidence of fracture or dislocation or abnormal soft tissue calcifications. There are moderate degenerative change in the AC joint, including small downgoing osteophytes. Subac romial space itself does not appear diminished. No os acromiale. No obvious degenerative changes in the glenohumeral joint. IMPRESSION: Moderate degenerative changes in the AC joint. Glenohumeral joint appears unremarkable. DATA REPOSITORY: RADIATION DOSE DELIVERED:
--- NOTE | 2021-04-20 | DI.RAD_ITS ---
Exam(s) XR CERVICAL SP LADD TRAUMA 2-3V EXAM: XR CERVICAL SP LADD TRAUMA 2-3V CLINICAL HISTORY: NECK PAIN, M54.2, S/P RECENT FALL. TECHNIQUE: 2D digital imaging was performed. COMPARISON: No exams were available for comparison FINDINGS: No evidence of fracture, listhesis, nor offset of the spinal laminar line. Cervical curvature is jess ntained. There is evidence of degenerative disc disease at C5-6 and C6-7 levels. Mild disc space na rrowing at these levels and anterior osteophytes. No cervical ribs. Mild facet degenerative changes . No osseous lesions. IMPRESSION: Degenerative disc disease as described above DATA REPOSITORY: RADIATION DOSE DELIVERED:
== END 2021-04-20 02:05 ==
PROVIDERS: PCP Nurse Practitioner Family
DX: M25.512 Pain in left shoulder (principal); M19.012 Primary osteoarthritis, left shoulder; M54.2 Cervicalgia; M50.322 Other cervical disc degeneration at C5-C6 level; M50.323 Other cervical disc degeneration at C6-C7 level
CPT/HCPCS: 72040; 73030

== ENCOUNTER 2021-05-31 02:47 | Outpatient (CLI) | payer MEDICAID, SELFPAY ==
[2021-05-31 07:33] LABS: Abs Immature Grans 0.02 10^3/uL (0.0-0.06); Absolute Basophil Count 0.11 10^3/uL (0.0-0.2); Absolute Eosinophil Count 0.21 10^3/uL (0.0-0.7); Absolute Lymphocyte Count 2.64 10^3/uL (1.2-3.4); Absolute Monocyte Count 0.81 10^3/uL (0.1-0.8); Absolute Neutrophil Count 3.47 10^3/uL (1.2-6.7); Basophils % 1.5; Eosinophils % 2.9; HCT 45.4 % (40.0-50.0); Immature Grans % 0.3; Lymphocytes % 36.4; MCH 30.3 pg (27.0-33.0); MCV 91.7 fL (80-95); MPV 9.1 fL (8.0-11.0); Monocytes % 11.2; Neutrophils % 47.7; Nucleated RBC 0 %; Platelet Count 243 10^3/uL (130-400); RBC 4.95 10^6/uL (4.36-5.78); RDW 12.8 % (11.8-14.1); WBC 7.26 10^3/uL (4.4-10.8)
[2021-05-31 07:46] LABS: VALPROIC ACID 46.5 ug/mL
[2021-05-31 08:30] LABS: ALT 18 U/L (16-63); AST 8 U/L (15-37); Alkaline Phosphatase 63 U/L (46-116); Anion Gap 6.3 mmol/L (3-11); BUN 14 mg/dL (7-18); Bilirubin, Direct 0.1 mg/dL (0.0-0.2); Bilirubin, Total 0.4 mg/dL (0.2-1.0); CO2 31.7 mmol/L (21.0-32.0); CREATININE 0.9 mg/dL (0.70-1.30); Calcium 9.5 mg/dL (8.5-10.1); Chloride 104 mmol/L (98-107); Glucose 82 mg/dL (74-106); Potassium 4.5 mmol/L (3.5-5.1); Sodium 142 mmol/L (136-145)
[2021-06-02 12:56] LABS: Lamotrigine 2.9 mcg/mL (2.5 - 15.0)
== END 2021-05-31 02:48 | disposition home or self-care (01) ==
LOC: LBO 02:47
PROVIDERS: PCP Nurse Practitioner Family; Visit Provider Counselor Addiction (Substance Use Disorder)
DX: R56.9 Unspecified convulsions (principal); Z79.899 Other long term (current) drug therapy; Z51.81 Encounter for therapeutic drug level monitoring; F25.0 Schizoaffective disorder, bipolar type
CPT/HCPCS: 36415; 80053; 80076; 80175; 80164; 85025

== ENCOUNTER 2021-07-06 01:38 | Outpatient (CLI) | payer MEDICAID, SELFPAY ==
--- NOTE | 2021-07-06 06:30 | DI.MRI_ITS ---
Exam(s) MR UPPER JOINT LT WO CLINICAL HISTORY: left shoulder pain,tendinitis long head biceps, m75.22. TECHNIQUE: Multiplanar multisequence MRI was performed. COMPARISON: None FINDINGS: MR examination of the shoulder was performed according to the usual protocol. There is trace effusion of glenohumeral joint and small quantity of fluid in the subacromial bursa. Bones and labrum: There are areas of apparent cystic change in the humeral head, predominantly greate r tuberosity. There is moderate hypertrophic change and cystic change at the acromioclavicular joint . There is abnormal signal in superior labrum suggesting SL AP tear. There is effacement labral con tour inferiorly and posteriorly period. Rotator cuff: There is abnormal signal in supraspinatus tendon consistent with tendinosis. Slight t endinosis of distal infraspinatus and subscapularis noted as well. There appears to be mild impingem ent by hypertrophic AC joint changes on the myotendinous junction region of the supraspinatus. There is a small focal full-thickness tear measuring 8 x 5 millimeters at the supraspinatus footprint. Rotator interval structures are unremarkable with no evidence of a tear. Biceps tendon and anchor: Biceps tendon and anchor show normal signal and no evidence of a tear. Chris ps tendon is normally positioned in the bicipital groove. IMPRESSION: Small full-thickness non retracted tear of supraspinatus at the humeral insertion. Probable SLAP tear of labrum, nondisplaced. DATA REPOSITORY:
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
== END 2021-07-06 01:58 ==
PROVIDERS: PCP Nurse Practitioner Family; Visit Provider Student in an Organized Health Care Education/Training Program
DX: M75.22 Bicipital tendinitis, left shoulder (principal); M25.512 Pain in left shoulder; M75.102 Unspecified rotator cuff tear or rupture of left shoulder, not specified as traumatic
CPT/HCPCS: 73221

== ENCOUNTER 2021-08-24 02:57 | Outpatient (CLI) | payer MEDICAID, SELFPAY ==
[2021-08-24 09:46] LABS: Source Nasal/Nares
[2021-08-24 13:02] LABS: COVID-19 PCR Negative (Negative)
== END 2021-08-24 02:58 | disposition home or self-care (01) ==
LOC: LBO 02:57
PROVIDERS: PCP Nurse Practitioner Family; Visit Provider Student in an Organized Health Care Education/Training Program
DX: Z01.818 Encounter for other preprocedural examination (principal); Z20.822 Contact with and (suspected) exposure to COVID-19
CPT/HCPCS: 87635

== ENCOUNTER 2021-08-26 07:41 | Day surgery (SDC) | payer MEDICAID, SELFPAY ==
--- NOTE | 2021-08-24 11:45 | NUR.NOTE ---
x2 attempts to contact patient for pre-op call. pt.s personal number message recieved was This person is not receiving phone calls at this time female infrastructure consultant number attempted (candelaria doddkaye number voicemail box is full. Office aware. Nursing Note:
[2021-08-26] VITALS (9 sets, daily range): BP systolic 133–156; BP diastolic 81–105; PULSE 81–102; RESP 11–18; TEMP 36.8–37.2; O2SAT 95–99; BMI 27.5
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
[2021-08-26] MEDS: Lactated Ringers 1,000 ML 100 ML IV (08:19)
--- NOTE | 2021-08-26 10:19 | W.ANESNERVE ---
Nerve Block Single Injection Procedure Date and Time Date Performed: 08/26/21 Procedure Start: 10:08 Location Where Procedure Performed Procedure Location: Day Surgery Unit Reason Performed: Postoperative Analgesia Requesting Provider: Junior Paz Timeout Performed Timeout Performed: Yes Monitoring Used ECG, Blood Pressure and SpO2 Sterility Sterility: Hand Hygiene, Surgical Cap, Surgical Mask and Sterile Gloves Sedation Given During Procedure Sedation Given (Indicate Dose Given): Versed IV Dose:: 2 mg Patient Mental Status Patient Mental Status: Awake Nerve Block 1st Nerve Block: Laterality: Left Block Type: Interscalene Needle / Catheter Used: 100mm SonoPlex II Local Anesthetic Bolus (Indicate Dose Given): Lidocaine used for local infiltration of skin, Injected in 3-5ml increments after negative blood aspiration, Bupivacaine 0.5% Dose:: 13 mL and Exparel Dose:: 10 mL Additives (Indicate Dose Given): None Ultrasound: Sterile probe cover and gel used Ultrasound Image Saved?: Yes Nerve Stimulator: Not Used Paresthesia: None Procedure Tolerated: No Complications Procedure Outcome: Successful Performed By: Juwan Story
[2021-08-26] MEDS: ceFAZolin 2 GM/50 ML BAG IVPB (10:44)
[2021-08-26] MEDS: EPINEPHrine 30 MG/30 ML VIAL (12:29)
--- NOTE | 2021-08-26 12:36 | W.PM.DSUDISC ---
Discharge Plan Disposition Patient Disposition: HOME Condition: Stable Discharge Details Reason For Visit: Left shoulder surgery Attending Provider: Junior Paz Primary Care Provider: Brissa Stout Home Meds and New Rx's Prescriptions: New aspirin 81 mg tablet,delayed release (DR/EC) 81 mg PO DAILY 14 Days Qty: 14 RF: 0 naproxen 250 mg tablet 250 - 500 mg PO BID PRNQty: 40 RF: 0 oxycodone 5 mg tablet 5 - 10 mg PO Q4H MDD 30 mg PRN (Reason: moderate to severe pain) Qty: 18 RF: 0 Continued divalproex [Depakote] 500 mg tablet,delayed release (DR/EC) 750 mg PO BID RF: 0 celecoxib [Celebrex] 50 mg capsule 100 mg PO BID RF: 0 cholecalciferol (vitamin D3) 25 mcg (1,000 unit) capsule 25 mcg PO DAILY RF: 0 lamotrigine [Lamictal] 25 mg tablet 12.5 mg PO ONCE RF: 0 diltiazem HCl 240 mg tablet extended release 24 hr 240 mg PO DAILY RF: 0 levocarnitine [Carnitor] 330 mg tablet 660 mg PO BID RF: 0 trazodone 100 mg tablet 100 mg PO HS RF: 0 chlorpromazine 100 mg tablet 150 mg PO BID RF: 0 hydroxyzine HCl 25 mg tablet 25 mg PO TID PRNRF: 0 fluvoxamine 100 mg tablet 100 mg PO BID RF: 0 clonazepam [Klonopin] 1 mg tablet 1 mg PO BID RF: 0 Vyvanse 70 mg capsule 70 mg PO DAILY RF: 0 lidocaine [Lidoderm] 5 % Adhesive Patch,Medicated 2 patch topical DAILY@1800 Qty: 60 RF: 0 nitroglycerin [Nitrostat] 0.4 mg Tablet, Sublingual 0.4 mg sublingual .q5 MIN PRN x2 PRN (Reason: chest pain) Qty: 30 RF: 0 sucralfate [Carafate] 1 gram tablet 1 g PO QACHS Qty: 120 RF: 0 Discharge Instructions Additional Instructions: Surgery: Left shoulder arthroscopy with rotator cuff repair, biceps tenodesis, extensive debridement, and subacromial decompression. Activity: For 6 weeks, you should keep your arm at your side in a neutral position at all times except for physical therapy. Do not try to lift or raise your arm using your own muscles. You should use the sling whenever you are out of the house. At home it is best to remove the sling and rest the arm on a pillow at your side or support the operative side with your other hand. You may allow the arm to dangle at your side. A physical therapy prescription will be sent electronically to begin in about 3 weeks. Prescriptions: Aspirin 81 mg take 1 daily to prevent a blood clot for 2 weeks Naproxen 250 mg take 1-2 every 12 hours with a meal as needed for moderate pain. Do not use at the same time as Celebrex (celecoxib). Oxycodone 5 mg take 1-2 every 4-6 hours as needed for severe pain You may use [id number] Tylenol (acetaminophen) as needed for mild pain. These pain medications may be taken all at once or in different combinations as needed. Also, recommend Colace (docusate) as a stool softener as surgery and pain medicine cause constipation. Dressings: Remove shoulder bandage after 3 days. Leave the sticky Steri-Strips in place until they fall off or remove them after you shower. Cover the incisions with Band-Aids or leave them open to air. You may shower after 5 days. Follow-up: 10-[address] Paz You may take off the leg compression stockings this evening at home. You may also leave them on a few days longer if you have a history of leg swelling or edema. Let us know right away if you develop any redness, drainage, fevers, chest pain, or trouble breathing. Do not drink alcohol or drive for at least 24 hours after anesthesia. Please call the office during business hours with any questions or concerns. Referrals: Junior Paz MD [ [facility] STAFF PHYSICIAN] - Discharge Orders Discharge Orders: Discharge Order (Routine); Ordered 08/26/21 Ordered By: Junior Paz DS: Diagnosis Discharge Diagnosis (1) Impingement syndrome of left shoulder: Status: Acute (2) Bursitis of left shoulder: Status: Acute (3) Traumatic tear of left rotator cuff: Status: Acute (4) Tendinitis of long head of biceps brachii of left shoulder: Status: Acute
--- NOTE | 2021-08-26 12:44 | W.PM.OP ---
Date of service: 08/26/21 Time of Service: 11:00 Operative Note Operative Note DATE OF PROCEDURE: 08/26/21 PRE-OP DIAGNOSIS: Left: 1. Rotator cuff tear 2. LHB tendinopathy 3. Bursitis 4. Impingement POST-OP DIAGNOSIS: same PROCEDURE: Left: 1. Rotator cuff repair, CPT# 78889. This involved repair of the supraspinatus using anchors and sutures to reattach the rotator cuff back to the footprint of the greater tuberosity. 2. Arthroscopic biceps tenodesis, CPT# 29019. This involved arthroscopically suturing and reattaching the long head of the biceps tendon to the proximal humerus at the superior margin of the bicipital groove with a screw at the correct tension. 3. Extensive debridement, CPT# 24715. This involved using arthroscopic hand instruments, power instruments, and radiofrequency instruments to release the long head of the biceps tendon and debride areas of labral tearing, SLAP tear, synovitis, and subcoracoid recess adhesions within the glenohumeral joint anteriorly, superiorly and posteriorly. 4. Subacromial decompression, CPT# 41732. This involved using arthroscopic power instruments and a radiofrequency wand to complete a bursectomy. The assistant professor of business was medically required in order to help assist in techniques above, which require positioning the arm, holding the arthroscope, and manipulating multiple instruments and sutures at the same time. This cannot be done without the help of an experienced assistant professor of business. SURGEON: Junior Paz RESEARCH CHEMICAL ENGINEER: Jayna Fraga ANESTHESIA TYPE: General LMA/ETT and Primary Nerve Block Refer to Anesthesia Record ESTIMATED BLOOD LOSS: 5 PATHOLOGY: none sent COMPLICATIONS: None Patient was transported to: PACU Patient's condition: stable Implants: Arthrex: 4.75mm SwiveLocks x 2 Indications: The patient was diagnosed with the above conditions and appropriately indicated for surgical intervention. Please see complete medical record for details. Findings: Exam under anesthesia: Full, symmetrical range of motion. No instability. Glenohumeral joint: Significant type II SLAP tear with extension labral fraying anteriorly and posteriorly to about the equator. Unstable biceps anchor. Preserved intra-articular segment long head biceps tendon. Intact subscapularis with overlying adhesions. Intact benign-appearing articular sided supraspinatus and infraspinatus throughout. Superior moderate synovitis Subacromial space: Moderate bursitis. High-grade maybe 90% bursal central supraspinatus rotator cuff tear with intact infraspinatus. No significant subacromial bone spur. Procedure Description: In the operating room, general anesthesia was induced. Bilateral shoulders were examined. The patient was positioned in the beachchair position. All bony prominences were well-padded. Preoperative antibiotics were administered. The shoulder was prepped and draped in the usual sterile fashion. The correct patient, procedure, and side of the procedure were all verified prior to incision. Starting through the posterior portal a standard complete diagnostic arthroscopy was performed of the glenohumeral joint including inspection of the long head of the biceps, anterior and superior labrum, subscapularis tendon, supraspinatus and infraspinatus tendons, and axillary recess. The glenoid and humeral head cartilage as well as the posterior labrum were inspected from an anterior viewing portal. Significant findings and interventions noted above. A rigid cannula was inserted anteriorly. An all-arthroscopic suprapectoral biceps tenodesis was performed through the anterior portal using a Loop N Tack method with a SutureTape FiberLink cinched around and through the tendon. The biceps was tenotomized from the labrum and fixated with a suture anchor at the superior margin of the bicipital groove. Starting through the posterior portal, the arthroscope was directed into the subacromial space. A lateral 50 yard line lateral portal was created. A combination of power instruments and a radiofrequency ablator were used to debride bursitis anteriorly, posteriorly, and laterally. The coracoacromial ligament was preserved. The bursectomy was completed viewing laterally and working from posteriorly and the rotator cuff was thoroughly inspected with findings noted above. Passport cannulas were inserted at the superior anterior lateral and posterior superior lateral margins acromion. A Bhargavi cannula was inserted at the 50 yard line portal. The high-grade bursal supraspinatus rotator cuff tear was thoroughly inspected and debrided. It had good tissue quality and excursion over the exposed footprint. Fibrinous tissue was removed from footprint and a combination of rasp elevators and BirdBeak's were used to optimize bone for tendon healing. The self retrieving suture passer was used to plastic FiberTape inverted horizontal mattress in the central part of the tear. The self retrieving suture passer was then used to place a FiberLink in cinch mode anteriorly and posteriorly to the FiberTape at the margins of the tear. All suture tails were brought out the lateral cannula and the rigid insert used to confirm excellent provisional reduction across the exposed tuberosity to a single central lateral anchor with good tendon pullout strength. The undersized punch was used followed by placement of 4.75 SwiveLock anchor containing all 4 suture tails with optimal tension individually placed and the suture anchor deployed with excellent fixation strength. The repair was inspected felt to have excellent anatomic reduction with good tissue compression centrally. There was no significant additional tear or dogear. The repair demonstrated strength through range of motion. The shoulder was drained of arthroscopic fluid. All portal sites were copiously irrigated. These incisions were closed using 3-0 Monocryl in a buried fashion and then covered with Mastisol, Steri-Strips, Xeroform, dry gauze, and ABDs. The dressings were covered and secured with Medipore tape. The operative extremity was placed into a sling for immobilization. The patient awoke from anesthesia without complication and was transferred to the recovery room in a stable condition.
[2021-08-26] MEDS: Normal Saline 10 ML VIAL IJ (13:09)
[2021-08-26] MEDS: HYDROmorphone 2 MG/ML VIAL IVP ×2 (13:09→13:26)
--- NOTE | 2021-08-26 13:37 | W.ANESPOSTOP ---
Postoperative Evaluation Date, Time and Location Date Performed: 08/26/21 Time Performed: 13:37 Patient Location: PACU Vital Signs Most Recent Imported Vital Signs: Most Recent Vital Signs Temp Pulse Resp BP Pulse Ox 36.8 C 82 14 144/98 H 97 08/26/21 13:29 08/26/21 13:29 08/26/21 13:29 08/26/21 13:29 08/26/21 13:29 Pain Score Most Recent Pain Score: Most Recent Pain Score Pain Level 7 08/26/21 13:29 Assessment Mental Status: Awake (Alert & Oriented to Patient Baseline) Airway and Respiratory Function: Patent airway with normal (patient baseline) respiratory exam Cardiovascular Function: Hemodynamically Stable Hydration Status: Adequately Hydrated Nausea & Vomiting: No Nausea or Vomiting Pain: Pain is tolerable per patient Peripheral Nerve Block: Regional nerve block not resolved at time of post operative discharge
[2021-08-29 14:51] LABS: Cotinine 469 ng/mL (<3.0); Nicotine 7.6 ng/mL (<3.0)
== END 2021-08-26 14:45 | disposition home or self-care (01) ==
PROVIDERS: PCP Nurse Practitioner Family; Visit Provider Student in an Organized Health Care Education/Training Program
PROC: (CPT 29827; principal; 2021-08-26 09:15)
DX: M75.42 Impingement syndrome of left shoulder (principal); M75.52 Bursitis of left shoulder; M75.22 Bicipital tendinitis, left shoulder
CPT/HCPCS: 29827; 29826; 29828; 29823; 36415; 76942; 80323; J0690; J1100; J1885; J2001; J2250; J2370; J2405; J2704

== ENCOUNTER 2022-04-14 22:57 | Emergency (ER) | payer MEDICAID, SELFPAY ==
[2022-04-14] VITALS (12 sets, daily range): BP systolic 132–141; BP diastolic 78–90; PULSE 83–89; RESP 14–36; TEMP 37.1; O2SAT 95–98
--- NOTE | 2022-04-14 23:00 | DI.CT_ITS ---
Exam(s) CT HEAD WO EXAM: CT HEAD WO CLINICAL HISTORY: seizure, fall, etoh. TECHNIQUE: Imaging Protocol: Axial computed tomography images with coronal and sagittal reformatted images were created and reviewed COMPARISON: 22 November 2019 FINDINGS: Ventricles and Extra axial spaces: Normal in size and morphology for the patient's age. Hemorrhage: None. Cerebral parenchyma: Normal. Midline shift: None. Brainstem/Cerebellum: Normal. Calvarium: Normal. Visualized Paranasal sinuses/Mastoids: Clear. Soft Tissues: Unremarkable. IMPRESSION: No acute intracranial process. RADIATION DOSE DELIVERED: 772.04mGy.cm Total DLP DATA REPOSITORY: All CT scans at this facility are submitted to the National Radiology Data Registry (NRDR) Dose Index Registry (DIR) with the [employer] (ACR). RADIATION OPTIMIZATION: All CT scans at this facility use at least one of these dose optimization te chniques: automated exposure control; mA and/or kV adjustment per patient size (includes targeted exa ms where dose is matched to clinical indication); or iterative reconstruction.
[2022-04-14 23:20] LABS: Abs Immature Grans 0.01 10^3/uL (0.0-0.06); Absolute Basophil Count 0.12 10^3/uL (0.0-0.2); Absolute Eosinophil Count 0.28 10^3/uL (0.0-0.7); Absolute Lymphocyte Count 3.33 10^3/uL (1.2-3.4); Absolute Monocyte Count 0.82 10^3/uL (0.1-0.8); Absolute Neutrophil Count 5.83 10^3/uL (1.2-6.7); Basophils % 1.2; Eosinophils % 2.7; HGB 14.7 g/dL (13.5-17.5); Immature Grans % 0.1; Lymphocytes % 32.1; MCH 30.6 pg (27.0-33.0); MCHC 34.2 % (32.0-36.0); MCV 90 fL (80-95); MPV 9.2 fL (8.0-11.0); Monocytes % 7.9; Platelet Count 243 10^3/uL (130-400); RDW 12.7 % (11.8-14.1); RDW-SD 42.2 fL; WBC 10.39 10^3/uL (4.4-10.8)
--- OUTSIDE RECORDS SUMMARY | 2022-04-14 23:23 | XMS_ITS | Encounter Summary ---
:1980 Author Organization [facility] [place] [address] Care Team Providers Name Role Phone Brissa Stout APRN Primary Care Provider Reason for Visit Reason Onset Date Comments TeleHealth 05/26/2021 Encounter Details Date Type Department Care Team Description 05/26/2021 Telephone [place] [facility] MD [facility] [place] [address] [place] [id number] NEUROLOGY [phone] [place], [place] [address] (Wo rk) Social History Tobacco Use Types Packs/Day Years Used Date Current Every Day Smoker Cigarettes 1.5 Smokeless Tobacco: Former User Alcohol Use Standard Drinks/Week Comments Yes 7 (1 standard drink = 0.6 oz pure alcoho l) Sex Assigned at Date Recorded Not on file documented as of this encounter Miscellaneous Notes Telephone Encounter - Christine oMore RN - 05/26/2021 11:03 AM EDT Spoke to this patient??by phone to review??their??medications and allergies prior to their??upcomingtele-appointment with the Neurology??provider. ??Medications and allergies reviewed, verified and updated as needed. documented in this encounter Plan of Treatment Not on filedocumented as of this encounter Visit Diagnoses Not on filedocumented in this encounter Care Teams Field Marketing Lead Relationship Specialty Start Date End Date Brissa Stout APRN PCP - General Family Medicine 05/26/20 [address] [place] [address] documented as of this encounter
--- OUTSIDE RECORDS SUMMARY | 2022-04-14 23:23 | XMS_ITS | Encounter Summary ---
:1980 Author Organization [facility] [place] [address] Care Team Providers Name Role Phone Brissa Stout APRN Primary Care Provider Encounter Details Date Type Department Care Team Description 11/15/[address] [facility] William Ramos MD [facility] [place] [address] NEUROLOGY DEPT. [phone] [place], [place] [address] (Wo rk) Social History Tobacco Use Types Packs/Day Years Used Date Current Every Day Smoker Cigarettes 1.5 Smokeless Tobacco: Former User Alcohol Use Standard Drinks/Week Comments Yes 7 (1 standard drink = 0.6 oz pure alcoho l) Sex Assigned at Date Recorded Not on file documented as of this encounter Miscellaneous Notes Telephone Encounter - Bee Crespo RN - 11/24/2020 9:29 AM EDT We are calling you to review your admission planned for: 11/29/20. Call placed to patient. VEEG admission discussed. Questions answered. Patient in agreement and verbalized understanding. The day of your admission you must call Patient Placement at 10:30 am to confirm there will be a bedavailable for you. Their phone number is [phone]. Sometimes the hospital does not have an available bed and your admission needs to be postponed. Postponing the admission doesn???t happen often, but is a possibility. After admissions has given you the OK to proceed to [facility] for the admission, you will need to arrive in 3C clinic at 1pm. You will have a clinic appointment with the Admitting NeurologyTeam. The Team will go over, in detail, your clinical history. This is to be able to best plan on how to monitor you while you are here. The Team that will see you in clinic includes a resident, an attending Epileptologist who may or may not be your regular doctor, and often med students are present as well. After the clinic appointment you may need to wait a while for your bed to be ready. Sometimes when the hospital is very busy it may be a few hours before the bed is ready. Having the clinic appointmentprior to going to your bed will help make getting testing started right away once you arrive to yourbed. Bring a snack in case you get hungry during your wait. Once you have arrived to your bed, the nurses will check you in and the ammonia refrigeration technician will apply EEG electrodes to your scalp with a special glue. These electrodes will be checked and reinforced as needed throughout your hospital stay and be removed the day of discharge. A reminder that your admission is planned to last approximately 5-7 days. During your admission, you will be hooked up to EEG leads that are connected to video monitoring. The EEG lead connection has an approximately 12 foot bandwidth which will allow getting into a chair and getting to the bathroom. You will also be in your hospital room for the entire stay. Please bring activities to help keep youoccupied while you are here. Items you might consider bringing are DVD???s, books, crafts, games, and puzzles. There is a TV in each room. Electronics brought from home will need to be checked by our Engineering Staff. Bring a cell phone or a phone card if you will need to make long distance calls (calls outside of the local [facility] area). Please bring personal toiletries such as toothbrush and paste, deodorant, brush and such. You can bring your own Pajama???s but they need to be buttoned or zippered down the front. Know that you will NOT be able to shower until the EEG electrodes are removed on the day of discharge. I would like to review your current medications. Even though we just reviewed your medications please bring a list of these medications to the hospital. Please do NOT bring in your medications as they will need to go to the pharmacy during your stay and you will not have access to them until you are discharged. Exceptions are: Control Pills Sabril Specialty medication that is hard to obtain (If the patient is on any of the above medication/medication categories instruct the patient to bring that medication in its medication container to the hospital) There is no smoking on [facility] campus. If you feel this will be an issue for you, please let the doctorknow so they can order you a nicotine patch. You will NOT be allowed to be out of bed unassisted during your admission. Any time you are not in the bed or the chair a staff member will be with you. This includes being assisted and monitored for safety when in the bathroom. When sitting in the chair, you will be asked to wear a vest restraint for safety. When you are in bed the side rails will be up for safety as well. This is to keep you safe during any seizure event youmight have. You will have a small IV placed while you are here. This is for safety in case you need medication to stop a seizure quickly. On the day you are discharged you will need to have a ride available and in your hospital room by 10am. Will this be a problem for you? Do you have any questions? Telephone Encounter - Jessica Nguyen - 11/15/2020 8:24 AM EDT Patient agreeable and confirmed EMU admission for Sunday11/29/20. Patient informed he will need covid testing prior/or at time of admission. Patient informed to call the admissions office on the day ofadmission at 10am to confirm bed availability and to arrive to clinic at 2pm. documented in this encounter Plan of Treatment Not on filedocumented as of this encounter Visit Diagnoses Not on filedocumented in this encounter Care Teams Botany Teacher Relationship Specialty Start Date End Date Brissa Stout APRN PCP - General Family Medicine 05/26/20 [address] [place] [address] documented as of this encounter
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
--- OUTSIDE RECORDS SUMMARY | 2022-04-14 23:23 | XMS_ITS | Encounter Summary ---
:1980 Author Organization [place] [address] Care Team Providers Name Role Phone Brissa Stout APRN Primary Care Provider Reason for Visit Reason Onset Date Comments Medication Refill Medication Refill 01/24/2021 Encounter Details Date Type Department Care Team Description 01/18/2021 Refill Neurology at [facility] Shawnee Dover, Vitamin D deficiency [facility] [place] [address] [facility] [phone] NEUROLOGY DEPT [place], [place] [address] (Wo rk) Social History Tobacco Use Types Packs/Day Years Used Date Current Every Day Smoker Cigarettes 1.5 Smokeless Tobacco: Former User Alcohol Use Standard Drinks/Week Comments Yes 7 (1 standard drink = 0.6 oz pure alcoho l) Sex Assigned at Date Recorded Not on file documented as of this encounter Miscellaneous Notes Telephone Encounter - Bee Crepso RN - 01/24/2021 12:19 PM EDT Call placed to patient. LVM. Advised to have a repeat Vitamin D level per Dr. Dover. Advised to call and let us know where he can have the blood draw. Advised to call back for any questions. Vitamin D order placed (kindly fax, if it's being done outside of ). Telephone Encounter - Muriel Paez - 01/18/2021 1:26 AM EDT Pt called back The Vitamin D lab order was faxed to [facility] Lab. documented in this encounter Plan of Treatment Not on filedocumented as of this encounter Visit Diagnoses Diagnosis Vitamin D deficiency Unspecified vitamin D deficiency documented in this encounter Care Teams Steam Fitter Supervisor Maintenance Relationship Specialty Start Date End Date Brissa Stout APRN PCP - General Family Medicine 05/26/20 [address] [place] [address] documented as of this encounter
--- OUTSIDE RECORDS SUMMARY | 2022-04-14 23:23 | XMS_ITS | Encounter Summary ---
:1980 [place] [address] Care Team Providers Name Role Phone Brissa Stout APRN Primary Care Provider Reason for Visit Reason Onset Date Comments TeleHealth 12/15/2021 Encounter Details Date Type Department Care Team Description 12/15/2021 Telephone Neurology at [facility] Shawnee Dover [place] [address] NEUROLOGY [phone] [place], [place] [address] (Wo rk) Social History Tobacco Use Types Packs/Day Years Used Date Current Every Day Smoker Cigarettes 1.5 Smokeless Tobacco: Former User Alcohol Use Standard Drinks/Week Comments Yes 7 (1 standard drink = 0.6 oz pure alcoho l) Sex Assigned at Date Recorded Not on file documented as of this encounter Miscellaneous Notes Telephone Encounter - Christine Moore RN - 12/15/2021 1:22 PM EDT Spoke to this patient by phone to review their medications and allergies prior to their upcoming tele-appointment with the Neurology provider. Medications and allergies reviewed, verified and updated as needed. documented in this encounter Plan of Treatment Not on filedocumented as of this encounter Visit Diagnoses Not on filedocumented in this encounter Care Teams Medicare Insurance Specialist Relationship Specialty Start Date End Date Brissa Stout APRN PCP - General Family Medicine 05/26/20 [address] [place] [address] documented as of this encounter
--- OUTSIDE RECORDS SUMMARY | 2022-04-14 23:23 | XMS_ITS | Encounter Summary ---
:1980 Author Organization [facility] [place] [address] Care Team Providers Name Role Phone Unknown Primary Care Provider Unavailable Encounter Details Date Type Department Care Team Description 05/25/2020 Telephone Cardiology at [facility] Francoise Gaxiola PA [facility] [place] [address] Cardiology Dept [phone] [place], [place] [address] (Wo rk) Social History Tobacco Use Types Packs/Day Years Used Date Current Every Day Smoker Cigarettes 1.5 Smokeless Tobacco: Former User Alcohol Use Standard Drinks/Week Comments Yes 7 (1 standard drink = 0.6 oz pure alcoho l) Sex Assigned at Date Recorded Not on file documented as of this encounter Miscellaneous Notes Telephone Encounter - Francoise Gaxiola PA - 05/25/2020 10:55 AM EDT Images from the original note were not included. 05/25/2020 Max James Initial Contact Date: 05/25/2020 Initial contact time: 10:55 AM Referring Provider: Yvette Vázquez APRN Patient Location: [facility] Past Medical History: Tobacco use do HTN on lisinopril HLD Bipolar do Presenting Symptoms per OSH: 40 yo male presenting with 1 week of L sided chest discomfort radiating down his L arm with associated diaphoresis and headache. Taking friends SLNTG with temporary relief. ED provider calling to review EKG. No labs have resulted yet. Pertinent Diagnostic Findings: 131/100, 102 bpm, RR 15, 36.2, 96% RA EKG - NSR at 95 bpm, LAE, early repolarization Past cardiac studies: EKG 2012 - NSR, WNL STEMI: No OSH Interventions: Aspirin SLNTG Plan: EKG with an early repolarization pattern. Non-ischemic looking. Story quite concerning. Would like labs to result before further recommedations. Echo. I have asked that they engage Dr Nunez who is at [facility] today. Happy to transfer if recommended. Listing for tomorrow. Communicated this to provider. Above recommendations were based on my discussion with BAYLEE Vázquez; I have not personally interviewed or examined this patient. Advised to call the transfer center back with any changes in the patient condition. Francoise Gaxiola PA-C 05/25/2020 documented in this encounter Plan of Treatment Not on filedocumented as of this encounter Visit Diagnoses Not on filedocumented in this encounter Care Teams It Systems Analyst Relationship Specialty Start Date End Date Unknown PCP - General 07/30/17 05/25/20 None documented as of this encounter
--- OUTSIDE RECORDS SUMMARY | 2022-04-14 23:23 | XMS_ITS | Encounter Summary ---
:1980 Author Organization [facility] [place] [address] Care Team Providers Name Role Phone Brissa Stout APRN Primary Care Provider Reason for Visit Reason Onset Date Comments Appointment 12/07/2021 Encounter Details Date Type Department Care Team Description 12/07/2021 Telephone Neurology at [facility] [place] [place] Shawnee Dover MD Appointment [facility] [place] [address] NEUROLOGY [phone] [place], [place] [address] (Wo rk) Social History Tobacco Use Types Packs/Day Years Used Date Current Every Day Smoker Cigarettes 1.5 Smokeless Tobacco: Former User Alcohol Use Standard Drinks/Week Comments Yes 7 (1 standard drink = 0.6 oz pure alcoho l) Sex Assigned at Date Recorded Not on file documented as of this encounter Miscellaneous Notes Telephone Encounter - Jessica Nguyen - 12/08/2021 11:50 AM EDT Phone visit all set and scheduled for 12/20/21. Telephone Encounter - Nina Jose - 12/07/2021 2:52 PM EDT Copied from [facility] #[id number]. Topic: Specialty Dept CRMs - Appointment Needed >> Dec 07, 2021 2:49 PM Erika Gomez wrote: Appt Needed Specialist Shawnee Dover MD Relationship (if other than patient-full name): na Appt. Type Needed: FUV Reason for Visit: 6 mo FUV. Please call patient and help schedule. This agent not able to find schedule for TOV visit. Recall still in place. Please call back to advise. documented in this encounter Plan of Treatment Not on filedocumented as of this encounter Visit Diagnoses Not on filedocumented in this encounter Care Teams Manager Money Relationship Specialty Start Date End Date Brissa Stout APRN PCP - General Family Medicine 05/26/20 [address] [place] [address] documented as of this encounter
--- OUTSIDE RECORDS SUMMARY | 2022-04-14 23:23 | XMS_ITS | Clinical Summary ---
:1980 Author Organization [facility] [place] [address] Care Team Providers Name Role Phone Brissa Stout APRN Primary Care Provider Allergies Active Allergy Reactions Severity Noted Date Comments Mushroom 05/01/2012 Other reaction( s): itchy hives, vo diane Mushroom Combination Hives, Nausea And High 03/11/2013 No.1 Vomiting Fluoxetine 03/12/2013 Severe agitatio n Sertraline 03/12/2013 Severe agitatio n Medications Medication Sig Dispensed Refills Start Date End Date Status hydrOXYzine (ATARAX) Take 1 tablet by 90 tablet 0 03/14/2013 Active 25 mg tablet mouth 3 times daily as needed for Anxiety. chlorproMAZINE Take 100 mg by 0 Active (Thorazine) 100 mg mouth 2 times Tablet daily. Takes 150 mg in the morning and 200 mg nightly clonazePAM (KlonoPIN) Take 1 mg by 0 Active 1 mg Tablet mouth 2 times daily. lisdexamfetamine Take 70 mg by 0 Active (VYVANSE) 70 mg mouth every Capsule morning. traZODone (Desyrel) Take 200 mg by 0 Active 100 mg Tablet mouth nightly. Takes two tablets nightly fluvoxaMINE (Luvox) Take 100 mg by 0 05/28/2020 Active 100 mg Tablet mouth 2 times daily. dilTIAZem (TIAZAC) 240 Take 240 mg by 0 10/26/2020 Active mg Capsule,Sustained mouth daily. Action 24 hr lidocaine (Lidoderm) Change 1 patch on 0 06/20/2020 Active 5% Adhesive Patch, the skin daily. Medicated divalproex EC TAKE THREE 90 tablet 3 02/15/2021 Acti ve (Depakote) 250 mg TABLETS BY MOUTH Tablet, Delayed TWICE A DAY Release (E.C.) cholecalciferol, Take 1,000 Units 0 03/16/2021 Active Vitamin D3, (Vitamin by mouth daily. D3) 1,000 unit Tablet lamoTRIgine (LaMICtal) Take 2 tablets by 360 tablet 0 10/12/19 Active 25 mg Tablet mouth 2 times daily. To replace current lamotrigine rx levOCARNitine Take 2 tablets by 360 tablet 3 01/19/2022 Active (CARNITOR) 330 mg mouth 2 times Tablet daily. Active Problems Problem Noted Date Seizures 12/02/2020 Depression 03/11/2013 Vitamin D deficiency 05/09/2012 Exomphalos 05/01/2012 Closed fracture of carpal bone 07/24/2011 Cigarette smoker 03/13/2011 Encounter for general adult medical examination withou t abnormal findings 03/13/2011 Encounters Date Type Specialty Care Team Description 01/19/2022 Refill Neurology Shawnee Dover MD from Last 3 Months Immunizations Name Administration Dates Next Due Influenza Vaccine, Unspecified Formulation 05/01/2012 Social History Tobacco Use Types Packs/Day Years Used Date Current Every Day Smoker Cigarettes 1.5 Smokeless Tobacco: Former User Tobacco Cessation: Ready to Quit: Yes Alcohol Use Standard Drinks/Week Comments Yes 7 (1 standard drink = 0.6 oz pure alcoho l) Sex Assigned at Date Recorded Not on file Last Filed Vital Signs Vital Sign Reading Time Taken Comments Blood Pressure 132/78 04/19/2021 8:57 AM EDT Pulse 84 04/19/2021 8:57 AM EDT Temperature 36.7 ??C (98 ??F) 12/08/2020 9:18 AM EDT Respiratory Rate 17 12/08/2020 9:18 AM EDT Oxygen Saturation 96% 12/08/2020 9:18 AM EDT Inhaled Oxygen Concentration - - Weight 77.1 kg (170 lb) 04/19/2021 8:57 AM EDT Height 172.7 cm (5' 8) 04/19/2021 8:57 AM EDT Body Mass Index 25.85 04/19/2021 8:57 AM EDT Plan of Treatment Health Maintenance Due Date Last Done Comments Covid-19 Vaccine (#1) 1983 Pneumococcal Vaccine: At-Risk 5-64yrs 1984 (1 - PCV) HIV screen 1996 Hepatitis C Screening 1996 Lipid Screening 1996 Tdap adult 1997 Tetanus vaccine 1997 Influenza (Flu) vaccine ( - 04/13/2022 05/01/2012 Influenza standard series) Diabetes Screening (HgbA1C or 12/03/2023 12/02/2020, 2019, Glucose) 03/12/2013 Insurance Payer Benefit Plan / Subscriber ID Effective Dates Phone Addre ss Type Group MEDICAID [place]ICA[place] [id number] 2020-Pres [phone] [address] PRIMARY CARE ent [facility] [id number] Advance Directives Latest Code Status on File Code Status Date Activated Date Inactivated Comments Attempt Cardiopulmonary Resuscitation - 12/02/2020 3:37 PM 021 3:09 PM Inpatient Code Status decision made by: Patient Full Code 03/14/2013 12:27 PM 06/06/2020 5:08 PM Does patient have decision making capacity? Yes, Order is based on Patients wishes. Full Code 03/11/2013 8:47 PM 03/14/2013 12:27 PM Order Status: Initial Order Does patient have decision making capacity? Yes, Order is based on Patients wishes. Care Teams Sleeve Fixer Relationship Specialty Start Date End Date Brissa Stout APRN PCP - General Family Medicine 05/26/20 [address] [place] [address]
--- OUTSIDE RECORDS SUMMARY | 2022-04-14 23:23 | XMS_ITS | Encounter Summary ---
:1980 [place] [address] Care Team Providers Name Role Phone Brissa Stout WALESKA Primary Care Provider Reason for Visit Reason Comments Chest Pain Encounter Details Date Type Department Care Team Description 06/06/2020 Emergency Emergency Department Jo Ann Stone stroesophageal reflux Lupis Olson MD disease, unspecified [facility] esophagitis [facility] DR tinajero (Primary Dx) [facility] EMERGENCY [place], [place] MEDICINE [address] [place] [address] [phone] Social History Tobacco Use Types Packs/Day Years Used Date Current Every Day Smoker Cigarettes 1.5 Smokeless Tobacco: Former User Alcohol Use Standard Drinks/Week Comments Yes 7 (1 standard drink = 0.6 oz pure alcoho l) Sex Assigned at Date Recorded Not on file documented as of this encounter Last Filed Vital Signs Vital Sign Reading Time Taken Comments Blood Pressure 132/93 06/06/2020 11:37 PM EDT Pulse 92 06/06/2020 11:37 PM EDT Temperature 37.2 ??C (99 ??F) 06/06/2020 11:37 PM EDT Respiratory Rate 18 06/06/2020 11:37 PM EDT Oxygen Saturation 100% 06/06/2020 11:37 PM EDT Inhaled Oxygen Concentration - - Weight 68 kg (150 lb) 06/06/2020 5:14 PM EDT Height 172.7 cm (5' 8) 06/06/2020 5:14 PM EDT Body Mass Index 22.81 06/06/2020 5:14 PM EDT documented in this encounter Discharge Instructions Discharge InstructionsMeghana Evans APRN - 06/07/2020 9:39 AM EDT Your chest pain and abdominal pain are likely due to gastroesophageal reflux disease, also known as acid reflux. We have discharged you with several medications to help with your symptoms. Please take your famotidine and esomeprazole as directed. You will take the famotidine for 14 days and the esomeprazole for 30 days. Therefore you will be taking 2 of these medications for an overlap period of 2 weeks. It will take some time for these medicines to work and help with your symptoms. We have also discharged you with Maalox which you can take as needed. Please follow-up with your primary care doctor to help manage your blood pressure as well as management of your acid reflux. AttachmentsThe following attachments cannot be sent through Care Everywhere.GERD (Polish)documented in this encounter Medications at Time of Discharge Medication Sig Dispensed Refills Start Date End Date fluvoxaMINE (Luvox) 100 Take 100 mg by 0 05/28/ 20 mg Tablet mouth 2 times daily. hydrOXYzine (ATARAX) 25 Take 1 tablet by 90 tablet 0 2012 mg tablet mouth 3 times daily as needed for Anxiety. esomeprazole (NexIUM) 40 Take 1 capsule by 30 capsule 1 05/1411/11/2020 mg Capsule, Delayed mouth daily. Release(E.C.) famotidine (Pepcid) 20 mg Take 1 tablet by 28 tablet 0 05/1406/20/2020 Tablet mouth 2 times daily for 14 days. alum-mag hydroxide-simeth Take 5 mLs by mouth 355 mL 0 1 11/11/2020 (Maalox) 200-200-20 mg/5 every 6 hours as mL Suspension needed for Indigestion. esomeprazole (NexIUM) 40 Take 1 capsule by 30 capsule 1 05/1406/07/2020 mg Capsule, Delayed mouth daily. Release(E.C.) benztropine (COGENTIN) 1 Take 2 tablets by 60 tablet 0 09/201211/11/2020 mg tablet mouth 2 times daily. Takes with Navane thiothixene (NAVANE) 5 mg Take 15 mg by mouth 0 12/02/2020 capsule nightly. thiothixene (NAVANE) 5 mg Take 10 mg by mouth 0 12/02/2020 capsule every morning. lithium 300 mg capsule Take 600 mg by 0 11/11/2020 mouth 2 times daily. Takes this every morning and qhs. Needs tonight's dose documented as of this encounter ED Notes Kaley Jacobs RN - 06/06/2020 10:31 PM EDT Patient resting on bed. Denies complaints at this time. Vitals as noted. Call light within reach. Family at bedside. Will continue to monitor Ryan Fernández RN - 06/06/2020 7:05 PM EDT Pt reporting improved CP, second nitro given. Linnea Crawford MD - 06/06/2020 7:02 PM EDT ED Resident Note Max James is an 40 y.o. male who presents to the ED with: Chief Complaint Patient presents with ??? Chest Pain I saw this patient on 06/06/2020. History is from patient. HPI Max James is a 40 y.o. male who presents to the Emergency Department for chest pain that has been going on for 3 weeks. He describes it as sharp and located just to the left of his sternum. The pain has been gradually getting worse over the past few weeks and is now 5 out of 10 on the pain scale. He describes it as sharp and pleuritic in nature and is worse with exertion. It also radiates to his epigastrium, into his left arm, and to his back. Of note the patient went to see another clinician at [facility] where he was given nitroglycerin several weeks ago. Patient states that a stress testwas also done at that time which was unrevealing. He states that the nitroglycerin has helped alleviate some of his chest pain. He denies any trauma to his chest. The patient also endorses associated symptoms of headache, palpitations, and blurry vision through these past several weeks. Patient statesthat he has had panic attacks in the past. The patient denies any cocaine use, but does endorse daily marijuana use. He works in [employer]. Review of systems is otherwise negative. Review of Systems: Review of Systems Constitutional: Negative for fever and unexpected weight change. Respiratory: Negative for cough and shortness of breath. Cardiovascular: Positive for chest pain and palpitations. Gastrointestinal: Positive for abdominal pain. Negative for constipation, diarrhea, nausea and vomiting. Genitourinary: Negative for dysuria, frequency and urgency. Neurological: Positive for headaches. Physical Exam: Patient Vitals for the past 24 hrs: BP Temp Temp src Pulse Resp SpO2 Height Weight 06/06/20 2300 120/77 -- -- 89 14 97 % -- -- 06/06/202236 -- 37.1 ??C (98.8 ??F) Oral 88 10 97 % -- -- 06/06/202229 129/85 -- -- 87 18 97 % -- -- 06/06/202214 130/90 -- -- 86 19 98 % -- -- 06/06/202206 (!) 137/91 -- -- 93 18 99 % -- -- 06/06/202199 -- -- -- 92 15 98 % -- -- 06/06/202144 147/90 -- -- 94 13 97 % -- -- 06/06/202129 (!) 143/94 -- -- 96 16 95 % -- -- 06/06/202114 (!) 152/94 -- -- 94 16 97 % -- -- 06/06/202099 -- -- -- 96 14 93 % -- -- 06/06/202044 (!) 142/108 -- -- 95 21 92 % -- -- 06/06/202029 (!) 160/101 -- -- 95 16 98 % -- -- 06/06/202014 (!) 162/102 -- -- 89 17 100 % -- -- 06/06/201999 (!) 151/104 -- -- 93 22 98 % -- -- 06/06/201944 (!) 162/105 -- -- 92 17 98 % -- -- 06/06/20 193 (!) 165/100 -- -- 100 15 97 % -- -- 06/06/20 191 (!) 141/99 -- -- (!) 105 12 -- -- -- 06/06/20 1900 (!) 143/92 -- -- 98 14 96 % -- -- 06/06/20 1845 (!) 160/100 -- -- 99 14 99 % -- -- 06/06/20 1830 145/90 -- -- (!) 107 16 100 % -- -- 06/06/20 1800 (!) 139/91 -- -- 95 19 98 % -- -- 06/06/20 1745 131/89 -- -- (!) 101 16 98 % -- -- 06/06/20 1714 (!) 150/92 37.2 ??C (99 ??F) Oral (!) 110 18 100 % 172.7 cm (5' 8) 68 kg (150 lb) Body mass index is 22.81 kg/m??. Physical Exam Constitutional: General: He is not in acute distress. Appearance: Normal appearance. HENT: Head: Normocephalic and atraumatic. Cardiovascular: Rate and Rhythm: Regular rhythm. Tachycardia present. Heart sounds: Normal heart sounds. No murmur. No friction rub. No gallop. Pulmonary: Effort: Pulmonary effort is normal. Comments: Crackles noted at the bases Abdominal: General: Bowel sounds are normal. There is no distension. Palpations: Abdomen is soft. Tenderness: There is no abdominal tenderness. There is no guarding. Musculoskeletal: General: No swelling. Comments: Tenderness to palpation of the left anterior chest located just lateral to the mid sternum Neurological: Mental Status: He is alert and oriented to person, place, and time. ED Course: - Patient seen under the supervision of the attending physician. - Medications, allergies, and past medical history reviewed. Patient states that nitroglycerin did not help alleviate his chest pain. EKG did not show ST changesand troponins were negative. D-dimer was normal. Patient began reporting pain was evaluated to his back but a CT angiogram was not concerning for an aortic dissection. Patient received Pepcid, Maalox and reported improvement in both his epigastric pain and chest pain. Labs Reviewed PROTHROMBIN TIME - Abnormal; Notable for the following components: Result Value PT 12.9 (*) All other components within normal limits HEMOGRAM - Abnormal; Notable for the following components: WBC 14.6 (*) All other components within normal limits DIFFERENTIAL, AUTOMATED - Abnormal; Notable for the following components: Neutr Abs (ANC) 10.41 (*) Monocyte Abs 1.3 (*) Rosa Gran Abs 0.06 (*) All other components within normal limits CBC (WITH DIFF) BASIC METABOLIC PANEL (NON-FASTING) HEPATIC FUNCTION PANEL LIPASE TROPONIN D-DIMER, QUANTITATIVE GOLD TUBE HOLD CRUZ TUBE HOLD D-DIMER, QUANTITATIVE TROPONIN URINALYSIS WITH REFLEX CULTURE Recent Results (from the past 12 hour(s)) Basic Metabolic Panel (non-fasting) Result Value Glucose Lvl 107 BUN 18 Creatinine 0.91 Sodium 138 Potassium 4.0 Chloride 100 CO2 26 Anion Gap 12 Calcium 9.9 eGFR 104 eGFR 120 Hepatic Function Panel Result Value Total Protein 7.3 Albumin 4.8 AST 13 ALT 13 Alk Phos 81 Total Bilirubin 0.2 Bili, Direct 0.1 Lipase Result Value Lipase 27 Prothrombin Time Result Value PT 12.9 (H) INR 1.1 Troponin Result Value Troponin-T <0.01 Hemogram Result Value WBC 14.6 (H) RBC 5.40 Hemoglobin 16.4 Hematocrit 46.5 MCV 86.1 MCH 30.4 MCHC 35.3 Platelets 357 RDWSD 36.8 RDWCV 11.5 MPV 9.1 nRBC % Auto 0.0 nRBC Abs Auto 0.000 Differential, Automated Result Value Neutrophils % 71.1 Neutr Abs (ANC) 10.41 (H) Lymphocytes % 18.2 Lymphocytes Abs 2.7 Monocytes % 8.7 Monocyte Abs 1.3 (H) Eosinophils % 1.0 Eosinophils Abs 0.1 Basophils % 0.6 Basophils Abs 0.1 Immature Gran % 0.40 Rosa Gran Abs 0.06 (H) Gold Tube HOLD Result Value Gold Hold Sample in lab. Cruz Tube Hold Result Value Cruz Hold Sample in lab. D-Dimer, Quantitative Result Value D-Dimer, Quant 493 Troponin Result Value Troponin-T <0.01 CT Angiogram Chest (Non-Coronary) w Contrast Final Result No evidence of thoracic aortic aneurysm/dissection identified. Mild peribronchial thickening could be sequela of small airways disease, COPD, or mild interstitial edema. Small amount of dependent debris/secretions within the distal trachea just above the RIGHT mainstem bronchus. Thank you for letting us participate in the care of this patient. For questions regarding this report, please contact the number below. Electronically signed by: Gilberto English MD, [facility] ([phone]), at 06/06/2020 8:26 PM XR Chest One View Final Result FINDINGS/IMPRESSION: In the short interval, there appears to be now pulmonary vascular congestion and mild interstitial edema. Trace RIGHT pleural effusion redemonstrated. No confluent airspace opacity, LEFT pleural effusion, or pneumothorax definitively identified. Cardiomediastinal contours appear within normal limits and without significant change appreciated. Thank you for letting us participate in the care of this patient. For questions regarding this report, please contact the number below. Electronically signed by: [facility]to English [facility] ([phone]), at 06/06/2020 7:04 PM XR Chest PA & Lateral (Generic) Final Result Trace RIGHT pleural effusion. No acute cardiopulmonary process otherwise seen. Thank you for letting us participate in the care of this patient. For questions regarding this report, please contact the number below. Electronically signed by: Gilberto English MD, [facility] ([phone]), at 06/06/2020 7:04 PM Procedures: Assessment and Plan: 40 y.o. male with past medical history of hypertension, hyperlipidemia, bipolar disorder, schizophrenia, epilepsy, tobacco use here for sharp pleuritic chest pain for 3 weeks with radiation to the leftarm and epigastrium and back. MDM: This patient's chest pain and epigastric pain is most likely secondary to GERD. He has had negative repeat troponins as well as repeat EKGs that have not shown findings suggestive of ischemia. His CT chest also was negative for dissection as well as an x-ray that was negative for pneumothorax. His D-dimer was also normal in our work-up for pulmonary embolism. Given his improvement in symptoms with Pepcid and Maalox, we think it is symptoms at presentation are due to GERD. We will discharge him with prescriptions for Maalox, Pepcid, Nexium and recommendation to follow-up with his PCP regarding his GERD and better management of his blood pressure. Assessment: 1. Gastroesophageal reflux disease, unspecified whether esophagitis present 40-year-old male with past medical history of hypertension hyperlipidemia bipolar disorder schizophrenia and epilepsy here for chest pain and epigastric pain most likely secondary to gastroesophageal reflux disease. His negative work-up includes troponins, EKG, CT chest, and chest x-ray. Plan: Discharge home with prescriptions for Maalox, Pepcid, and Nexium with follow-up recommended with hisPCP to manage his acid reflux and hypertension. Return precautions were verbally discussed and written in discharge instructions. The patient and/orfamily expressed understanding that they could come back to the ED at any time and agreed to the follow-up plan. --------- Linnea Crawford MD Internal Medicine PGY1 11:38 PM 06/06/20 Linnea Crawford MD Resident 06/06/20 7260 Associated attestation - Lupis Cherry MD - 06/07/2020 1:43 AM EDT ED ATTENDING ATTESTATION The patient was seen in conjunction with the resident physician. I have independently performed the mccray portions of the history and physical exam. I have personally reviewed nursing notes, vital signs,and diagnostic studies including labs, imaging studies and EKGs. I have discussed the details of the case with the resident and agree with the assessment and plan as described in the resident's note, unless stated otherwise in my separate note. Did this case involve critical care? No Lupis Cherry MD - 06/06/2020 6:31 PM EDT Attending Note HPI: Max James is a 40 y.o. who presents to the ED PMH depression, htn, chol, +smoker, bipolar, schizophrenia C/o 3 weeks of intermittent CP parasternal on L side, sharp, getting worse, worse with exertion, radiates to epigastrium and L arm, states it is constant, +palpitations, no SOB, no N, V, +pleuritic pain, ? Unknown fam hx, no leg swelling/leg pain, no travel, no [place], Smokes MJ daily, no cocaine/crack No fever no cough no travel Was admitted for same at [facility] and had a full cardiac w/up including stress test which was nml. Was discharged with nitroglycerin. Now pain has returned so pt is back in ER. Pain goes to back. +elvated BP. Feels burning. ROS: Pertinent positives and negatives are included in the HPI Physical Exam: I reviewed the nursing notes and vital signs Patient Vitals for the past 24 hrs: Temp Heart Rate From SP02 Pulse Resp BP SpO2 O2 Device 06/06/20 1714 37.2 ??C (99 ??F) -- (!) 110 18 (!) 150/92 100 % RA 06/06/20 1745 -- (!) 101 bpm (!) 101 16 131/89 98 % -- 06/06/20 1800 -- 95 bpm 95 19 (!) 139/91 98 % -- General: No acute distress Mildly tachycardic HEENT: neck supple, no meningismus, normal mucous membranes Chest: CTA gab Cardiac: Nl S1S2 s m/g/r Abdomen: Soft, NT, ND Skin: No rashes, no ecchymoses Neuro: Normal gait, speech, and balance Psych: Normal mood and thought ED Course as of Jun 06 2326 Sun Jun 06, 20202003 ASA administered at presentation, nitro given, without improvement Tx CP with pepcid, maalox CT Chest for r/out dissection as pt now started to say his chest pain is worse and is radiating to back. He appears unwell. Labetolol ordered for BP control. Awaiting CT. 2039 ?? IMPRESSION No evidence of thoracic aortic aneurysm/dissection identified. Mild peribronchial thickening could be sequela of small airways disease, COPD, or mild interstitial edema. Small amount of dependent debris/secretions within the distal trachea just above the RIGHT mainstem bronchus. 2227 BP improved, CP improved Trop neg x 1 EKG sinus 91, repeat without any PARUL/depressions, q waves 2325 09 trop neg, pt safe for discharge Assessment/plan: 3 weeks of CP, high risk for ACS, possible PE, r/out PTX -CP currently 12/20: EKG rate 103, III avF TWI Troponin pending Tx with nitroglycerin and ASA CXR Likely admission 2/2 moderate HEART Score R/out PE with Ddimer R/out PTX with CXR At discharge: Symptoms improved ekg nml, trop neg x 2 bp improved CXR/CT neg for cardiopulm disease LFSs lipase nml PT's symptoms likely 2/2 GERD as his symptoms improved post pepcid, maalox. Will dc with pepcid/PPI and f/up with PMD. Lupis Cherry MD 06/06/20 2330 Ryan Fernández, RN - 06/06/2020 6:08 PM EDT Pt A+Ox4, respirations even and unlabored, PWD, VSS, NAD. Pt speaking slowly with delayed responses, endorses seizure 3 days ago I woke up on the ground, endorses marijuana use on the way here. documented in this encounter Plan of Treatment Scheduled Orders Name Type Priority Associated Diagnoses Order S chedule EKG 12 Lead ECG STAT One Time for 1 Occurrences starting 06/06/2020 unti l 06/06/2020 documented as of this encounter Procedures Procedure Name Priority Date/Time Associated Comments Diagnosis HC TROPONIN T STAT 06/06/2020 10:35 Results fo r this PM EDT procedure are i n the results section. EKG 12-LEAD STAT 06/06/2020 9:47 PM Results f or this EDT procedure are i n the results section. CT ANGIOGRAM OF CHEST STAT 06/06/2020 8:13 PM Results for this (NON-CORONARY) W EDT procedure a re in CONTRAST the results section. XR CHEST ONE VIEW STAT 06/06/2020 6:59 PM Resu lts for this EDT procedure are i n the results section. CRUZ TUBE HOLD STAT 06/06/2020 6:30 PM Results for this EDT procedure are i n the results section. HEMOGRAM STAT 06/06/2020 6:30 PM Results f or this EDT procedure are i n the results section. DIFFERENTIAL, STAT 06/06/2020 6:30 PM Results for this AUTOMATED EDT procedure are i n the results section. D-DIMER, QUANTITATIVE STAT 06/06/2020 6:30 PM Results for this EDT procedure are i n the results section. GOLD TUBE HOLD STAT 06/06/2020 6:30 PM Results for this EDT procedure are i n the results section. HC PROTHROMBIN TIME STAT 06/06/2020 6:30 PM Re sults for this EDT procedure are i n the results section. HC CBC,PLT & AUTO STAT 06/06/2020 6:30 PM DIFF EDT HC TROPONIN T STAT 06/06/2020 6:30 PM Results for this EDT procedure are i n the results section. HC LIPASE STAT 06/06/2020 6:30 PM Results f or this EDT procedure are i n the results section. HEPATIC FUNCTION STAT 06/06/2020 6:30 PM Resul ts for this PANEL EDT procedure are i n the results section. BASIC METABOLIC PANEL STAT 06/06/2020 6:30 PM Results for this (NON-FASTING) EDT procedure are in the results section. XR CHEST PA AND STAT 06/06/2020 6:18 PM Result s for this LATERAL EDT procedure are i n the results section. EKG 12-LEAD STAT 06/06/2020 5:26 PM Results f or this EDT procedure are i n the results section. documented in this encounter Results Troponin (06/06/2020 10:35 PM EDT) P athologist Signature Troponin-T <0.01 0.00 - 0.00 [facility] ng/mL [facility] Comment: The 99th percentile for Troponin T is le ss than 0.01 ng/mL, any detectable cTnT concentration using this assay should be considered elevated. According to the third universal definit ion of myocardial infarction the following criteria with a clinical prese ntation consistent with acute myocardial ischemia meets the diagnosis for a myocardial infarction (UT). Detection of a rise and/or fall of cTnT, with at least one value greater than the 99th percentile (> or = 0.01) and wi th at least one of the following ?? Symptoms of ischemia ?? New or presumed new significant ST-se gment-T wave (ST-T) changes or new left bundle branch block (LBBB) ?? Development of pathologic Q waves in the ECG ?? Imaging evidence of new loss of viabl e myocardium or new regional wall motion abnormality ?? Identification of an intracoronary th rombus by angiography or autopsy Samples for cTnT testing should be obtai racquel serially upon first assessment and again 3 to 6 hours later. If the clinica l suspicion is high and previous samples have been negative an additional sample may be indicated. Reference: Third [place] Definition of Myocardial Infarction. Journal of the [place] [employer] 2012;60:1581-98 Specimen Anatomical Collection Method Collection Time Receive d Time (Source) Location / / Volume Laterality Blood specimen 06/06/2020 10:35 0 (specimen) PM EDT 10:41 PM EDT Resulting Agency Comment Spec In Lab Lupis Cherry MD CHEMISTRY ORDERABLES Performing Organization Address City/[facility] [place] [address] EKG 12 Lead (06/06/2020 9:47 PM EDT) Component Value Ref Range Test Analysis Performed Pathologis t Method Time At Signature Ventricular rate 91 BPM MUSE SYSTEM Atrial Rate 91 BPM MUSE SYSTEM P-R Interval 188 ms MUSE SYSTEM QRS Duration 112 ms MUSE SYSTEM Q-T Interval 364 ms MUSE SYSTEM QTC Calculated 447 ms MUSE SYSTEM (Bezet) Calculated P [place] 53 degrees MUSE SYSTEM Calculated R [place] 58 degrees MUSE SYSTEM Calculated T [place] 44 degrees MUSE SYSTEM INTERPRETATION Normal sinus rhythm MUSE SYSTEM Voltage criteria for left ventricular hypertrophy Normal ECG When compared with ECG of 06-JUN-2020 17:26, No significant change was found Confirmed by MD ДМИТРИЙ, JUAN DANIEL ([id number]) on 06/07/2020 4:35:27 A M Specimen Anatomical Collection Method Collection Time Receive d Time (Source) Location / / Volume Laterality 06/06/2020 9:47 PM 0 4:35 EDT AM EDT Lupis Cherry MD ECG ORDERABLES Performing Organization Address City/[facility]/ZIP Code Phon e Number MUSE SYSTEM CT Angiogram Chest (Non-Coronary) w Contrast (06/06/2020 8:13 PM EDT) Anatomical Region Laterality Modality Chest Computed Tomography Specimen (Source) Anatomical Location Collection Method / Collectio n Time Received Time / Laterality Volume Impressions 06/06/2020 8:26 PM EDT No evidence of thoracic aortic aneurysm/dissection identified. Mild peribronchial thickening could be s equela of small airways disease, COPD, or mild interstitial edema. Small amount of dependent debris/secreti ons within the distal trachea just above the RIGHT mainstem bronchus. Thank you for letting us participate in the care of this patient. For questions regarding this report, please contact th e number below. ? Electronically signed by: Gilberto English MD, [facility] ([phone]), at 06/06/2020 8:26 PM Narrative 06/06/2020 8:26 PM EDT EXAMINATION: CT ANGIOGRAM CHEST (NON-CORONARY)W CONTRAST CLINICAL HISTORY: Thoracic aortic aneury sm suspected, initial exam chest pain radiating to the back, wish t o rule out dissection TECHNIQUE: Helical CT angiogram of the c hest was performed following the intravenous administration of contrast. 53 cc Omnipaque 350. MIP reconstructions. COMPARISON: None FINDINGS: Airways: Small amount of dependent debri s/secretions within the distal trachea just above the RIGHT mainstem bronchus. Mild peribronchial thickening. Lungs/Pleura: Mild paraseptal emphysemat ous changes of the RIGHT apex. Mediastinum/Flores: Unremarkable. Cardiovascular: Unremarkable, including nonaneurysmal thoracic aorta without evidence of dissection identified. Included Upper Abdomen: Unremarkable. Osseous Structures: No acute abnormality identified. Procedure Note Gilberto English MD - 06/06/2020 EXAMINATION: CT ANGIOGRAM CHEST (NON-COR ONARY)W CONTRAST CLINICAL HISTORY: Thoracic aortic aneury sm suspected, initial exam chest pain radiating to the back, wish t o rule out dissection TECHNIQUE: Helical CT angiogram of the c hest was performed following the intravenous administration of contrast. 53 cc Omnipaque 350. MIP reconstructions. COMPARISON: None FINDINGS: Airways: Small amount of dependent debri s/secretions within the distal trachea just above the RIGHT mainstem bronchus. Mild peribronchial thickening. Lungs/Pleura: Mild paraseptal emphysemat ous changes of the RIGHT apex. Mediastinum/Flores: Unremarkable. Cardiovascular: Unremarkable, including nonaneurysmal thoracic aorta without evidence of dissection identified. Included Upper Abdomen: Unremarkable. Osseous Structures: No acute abnormality identified. IMPRESSION No evidence of thoracic aortic aneurysm/ dissection identified. Mild peribronchial thickening could be s equela of small airways disease, COPD, or mild interstitial edema. Small amount of dependent debris/secreti ons within the distal trachea just above the RIGHT mainstem bronchus. Thank you for letting us participate in the care of this patient. For questions regarding this report, please contact [facility] number below. Electronically signed by: Gilberto English MD, [facility] ([phone]), at 06/06/2020 8:26 PM Lupis Cherry MD IMG CT ORDERABLES XR Chest One View (06/06/2020 6:59 PM EDT) Anatomical Region Laterality Modality Chest N/A Digital Radiography Specimen (Source) Anatomical Location Collection Method / Collectio n Time Received Time / Laterality Volume Impressions 06/06/2020 7:04 PM EDT FINDINGS/IMPRESSION: In the short interval, there appears to be now pulmonary vascular congestion and mild interstitial edema. Trace RIGHT ple ural effusion redemonstrated. No confluent airspace opacity, LEFT pleural effusion, or pneumothorax definitively identified. Cardiomediastinal contours a ppear within normal limits and without significant change appreciated. Thank you for letting us participate in the care of this patient. For questions regarding this report, please contact e number below. ? Electronically signed by: Gilberto English MD, [facility] ([phone]), at 06/06/2020 7:04 PM Narrative 06/06/2020 7:04 PM EDT EXAMINATION: XR CHEST ONE VIEW CLINICAL HISTORY: chest pain TECHNIQUE: 1 view of the chest COMPARISON: 06/06/2020 Procedure Note Gilberto English MD - 06/06/2020 EXAMINATION: XR CHEST ONE VIEW CLINICAL HISTORY: chest pain TECHNIQUE: 1 view of the chest COMPARISON: 06/06/2020 IMPRESSION FINDINGS/IMPRESSION: In the short interval, there appears to be now pulmonary vascular congestion and mild interstitial edema. Trace RIGHT ple ural effusion redemonstrated. No confluent airspace opacity, LEFT pleural effusion, or pneumothorax definitively identified. Cardiomediastinal contours a ppear within normal limits and without significant change appreciated. Thank you for letting us participate in the care of this patient. For questions regarding this report, please contact th e number below. Lupis Cherry MD IMG DX ORDERABLES D-Dimer, Quantitative (06/06/2020 6:30 PM EDT) athologist Signature D-Dimer, Quant 493 0 - 500 [facility] FEU ng/ml [facility] Comment: The D-Dimer assay is used to aid in the diagnosis of deep vein thrombosis and pulmonary embolism. A normal D-Dimer res ult (less than 500 FEU ng/ml) has a negative predictive value of approximate ly 95% for the exclusion of acute PE and DVT when there is low to moderate pr etest probability. To use age adjusted cutoff: Age x 10 ng/ml. Specimen Anatomical Collection Method Collection Time Receive d Time (Source) Location / / Volume Laterality Blood specimen Venous Draw / 06/06/2020 6:30 PM 2019 6:47 (specimen) Unknown EDT PM EDT Resulting Agency Comment Spec In Lab Lupis Cherry MD HEMATOLOGY ORDERABLES Performing Organization Address City/State/[place] [address] Cruz Tube Hold (06/06/2020 6:30 PM EDT) athologist Signature Cruz Hold Sample in [facility] LABORATORY Specimen Anatomical Collection Method Collection Time Receive d Time (Source) Location / / Volume Laterality Blood specimen Venous Draw / 06/06/2020 6:30 PM 2019 6:47 (specimen) Unknown EDT PM EDT Landen Cross MD CHEMISTRY ORDERABLES Performing Organization Address City/[facility]/ZIP Code Phon e Number [address] Gold Tube HOLD (06/06/2020 6:30 PM EDT) athologist Signature Gold Hold Sample in [facility] LABORATORY Specimen Anatomical Collection Method Collection Time Receive d Time (Source) Location / / Volume Laterality Blood specimen Venous Draw / 06/06/2020 6:30 PM 2019 6:47 (specimen) Unknown EDT PM EDT Landen Cross MD CHEMISTRY ORDERABLES Performing Organization Address City/[facility]/ZIP Code Phon e Number [address] (ABNORMAL) Differential, Automated (06/06/2020 6:30 PM EDT) [facility] gist Method Time Signature Neutrophils % 71.1 % [facility] Neutr Abs (ANC) 10.41 (H) 1.70 - [facility] 6.10 [facility] x10(3)/[facility] LABORATORY Lymphocytes % 18.2 % [facility] Lymphocytes Abs 2.7 0.9 - 3.2 [facility] x10(3)/[facility] LABORATORY Monocytes % 8.7 % [facility] Monocyte Abs 1.3 (H) 0.3 - 0.9 [facility] x10(3)/[facility] LABORATORY Eosinophils % 1.0 % [facility] Eosinophils Abs 0.1 0.0 - 0.4 [facility] x10(3)/[facility] LABORATORY Basophils % 0.6 % [facility] Basophils Abs 0.1 0.0 - 0.1 [facility]YLE x10(3)/[facility] LABORATORY Immature Gran % 0.40 % [facility] Comment: Immature granulocytes(IG's)percentage an d absolute count will include metamyelocytes, myelocytes, and promyelo cytes. Blood smears from CBCs yielding IG's will be scanned manually for concor dance. If this scan disagrees with the automated IG or if promyelocytes are not ed, a manual differential will be performed. Rosa Gran Abs 0.06 (H) 0.00 - 0.04 x10(3)/[facility] LABORATORY Specimen Anatomical Collection Method Collection Time Receive d Time (Source) Location / / Volume Laterality Blood specimen 06/06/2020 6:30 PM 020 6:47 (specimen) EDT PM EDT Resulting Agency Comment Spec In Lab Landen Cross MD HEMATOLOGY ORDERABLES Performing Organization Address City/State/[place] [address] (ABNORMAL) Hemogram (06/06/2020 6:30 PM EDT) Analysis Performed At Patho logist Time Signature WBC 14.6 (H) 4.0 - 9.5 [facility] x10(3)/[facility] LABORATORY RBC 5.40 4.58 - [facility]54 [facility] x10(6)/[facility] LABORATORY Hemoglobin 16.4 13.7 - [facility] 16.5 gm/dL [facility] Hematocrit 46.5 40.5 - [facility] 48.5 % [facility] MCV 86.1 82.9 - [facility] 93.1 [facility] LABORATORY MCH 30.4 27.5 - [facility] 32.1 pg [facility] MCHC 35.3 32.0 - [facility] 35.7 gm/dL [facility] Platelets 357 145 - 357 [facility] x10(3)/[facility] LABORATORY RDWSD 36.8 36.0 - [facility] 45.0 [facility] LABORATORY RDWCV 11.5 11.4 - [facility] 13.8 % [facility] MPV 9.1 7.6 - 12.9 [facility] LABORATORY nRBC % Auto 0.0 % [facility] nRBC Abs Auto 0.000 0.000 - [facility] 0.000 [facility] x10(3)/[facility] LABORATORY Specimen Anatomical Collection Method Collection Time Receive d Time (Source) Location / / Volume Laterality Blood specimen 06/06/2020 6:30 PM 020 6:47 (specimen) EDT PM EDT Resulting Agency Comment Spec In Lab Landen Cross MD HEMATOLOGY ORDERABLES Performing Organization Address City/State/[place] [address] Troponin (06/06/2020 6:30 PM EDT) P athologist Signature Troponin-T <0.01 0.00 - 0.00 [facility] ng/mL [facility] Comment: The 99th percentile for Troponin T is le ss than 0.01 ng/mL, any detectable cTnT concentration using this assay should be considered elevated. According to the third universal definit ion of myocardial infarction the following criteria with a clinical prese ntation consistent with acute myocardial ischemia meets the diagnosis for a myocardial infarction (UT). Detection of a rise and/or fall of cTnT, with at least one value greater than the 99th percentile (> or = 0.01) and wi th at least one of the following ?? Symptoms of ischemia ?? New or presumed new significant ST-se gment-T wave (ST-T) changes or new left bundle branch block (LBBB) ?? Development of pathologic Q waves in the ECG ?? Imaging evidence of new loss of viabl e myocardium or new regional wall motion abnormality ?? Identification of an intracoronary th rombus by angiography or autopsy Samples for cTnT testing should be obtai racquel serially upon first assessment and again 3 to 6 hours later. If the clinica l suspicion is high and previous samples have been negative an additional sample may be indicated. Reference: Third [place] Definition of Myocardial Infarction. Journal of the [place] [employer] 2012;60:1581-98 Specimen Anatomical Collection Method Collection Time Receive d Time (Source) Location / / Volume Laterality Blood specimen 06/06/2020 6:30 PM 10/25/2 020 6:47 (specimen) EDT PM EDT Resulting Agency Comment Spec In Lab Landen Crsos MD CHEMISTRY ORDERABLES Performing Organization Address City/[facility]/[place] [address] (ABNORMAL) Prothrombin Time (06/06/2020 6:30 PM EDT) P athologist Signature PT 12.9 (H) 9.4 - 12.5 [facility] LABORATORY INR 1.1 [facility] Comment: An INR <2.0 indicates adequate procoagul ant activity for hemostasis in most patients without underlying bleeding dis orders, though the INR may not adequately reflect hemostatic capacity i n patients with liver disease and synthetic impairment. The recommended ta rget INR range for therapeutic anticoagulation is 2.0 ? 3.0 for most applications, though lower and higher ranges may be appropriate depending on c linical circumstances. Specimen Anatomical Collection Method Collection Time Receive d Time (Source) Location / / Volume Laterality Blood specimen 06/06/2020 6:30 PM 020 6:47 (specimen) EDT PM EDT Resulting Agency Comment Spec In Lab Landen Cross MD HEMATOLOGY ORDERABLES Performing Organization Address City/[facility]/ZIP Code Phon e Number [address] Lipase (06/06/2020 6:30 PM EDT) P athologist Signature Lipase 27 0 - 60 [facility] unit/L [facility] Specimen Anatomical Collection Method Collection Time Receive d Time (Source) Location / / Volume Laterality Blood specimen 06/06/2020 6:30 PM 020 6:47 (specimen) EDT PM EDT Resulting Agency Comment Spec In Lab Landen Cross MD CHEMISTRY ORDERABLES Performing Organization Address City/[facility]/ZIP Code Phon e Number [address] Hepatic Function Panel (06/06/2020 6:30 PM EDT) P athologist Signature Total Protein 7.3 6.1 - 8.0 [facility] gm/dL [facility] Albumin 4.8 3.2 - 5.2 [facility] gm/dL [facility] AST 13 0 - 39 [facility]/L [facility] ALT 13 0 - 55 [facility]/L [facility] Alk Phos 81 40 - 130 [facility]L [facility] Total 0.2 0.2 - 1.3 [facility] Bilirubin mg/dL [facility] Bili, Direct 0.1 0.0 - 0.3 [facility] mg/dL [facility] Specimen Anatomical Collection Method Collection Time Receive d Time (Source) Location / / Volume Laterality Blood specimen 06/06/2020 6:30 PM 020 6:47 (specimen) EDT PM EDT Resulting Agency Comment Spec In Lab Landen Cross MD CHEMISTRY ORDERABLES Performing Organization Address City/State/[place] [address] Basic Metabolic Panel (non-fasting) (06/06/2020 6:30 PM EDT) P athologist Signature Glucose Lvl 107 65 - 199 [facility] mg/dL [facility] Comment: Diabetes: >=200 mg/dL plus symp toms BUN 18 10 - 20 mg/dL [facility] Creatinine 0.91 0.80 - 1.50 mg/dL [facility] Sodium 138 135 - 145 mmol/L [facility] Potassium 4.0 3.5 - 5.0 mmol/L [facility] Comment: Please note: ??Patients with WBC >100,00 0 may have falsely elevated Potassium levels. ??For accurate Potassium quantif ication in these patients send serum separator tube (gold top) for subsequent determinations. ??Contact the Clinical Chemistry Laboratory if there are any qu estions. Chloride 100 98 - 107 mmol/L [facility] CO2 26 22 - 31 mmol/L [facility] Anion Gap 12 5 - 15 mmol/L [facility] Calcium 9.9 8.5 - 10.5 mg/dL [facility] Estimated GFR 104 >=60 mL/min/1.73 m?? [facility] Comment: The eGFR was calculated using the CKD-EP I equation. As with all creatinine based estimates of kidney function, eGFR values calculated with the CKD-EPI equation are not accurate in patients wi th acute kidney failure, extremes of body mass or the acutely ill. http://GeoEye/[facility] CITYnkf eGFR 120 >=60 mL/min/1.73 m?? [facility] Comment: The eGFR was calculated using the CKD-EP I equation. As with all creatinine based estimates of kidney function, eGFR values calculated with the CKD-EPI equation are not accurate in patients wi th acute kidney failure, extremes of body mass or the acutely ill. http://GeoEye/[facility] CITY[facility]f Specimen Anatomical Collection Method Collection Time Receive d Time (Source) Location / / Volume Laterality Blood specimen 06/06/2020 6:30 PM 020 6:47 (specimen) EDT PM EDT Resulting Agency Comment Spec In Lab Landen Cross MD CHEMISTRY ORDERABLES Performing Organization Address City/State/[place] [address] XR Chest PA & Lateral (Generic) (06/06/2020 6:18 PM EDT) Anatomical Region Laterality Modality Chest N/A Digital Radiography Specimen (Source) Anatomical Location Collection Method / Collectio n Time Received Time / Laterality Volume Impressions 06/06/2020 7:04 PM EDT Trace RIGHT pleural effusion. No acute cardiopulmonary process otherwi se seen. Thank you for letting us participate in the care of this patient. For questions regarding this report, please contact e number below. ? Electronically signed by: Gilberto English [facility] ([phone]), at 06/06/2020 7:04 PM Narrative 06/06/2020 7:04 PM EDT EXAMINATION: XR CHEST PA AND LATERAL (GENERIC) CLINICAL HISTORY: CP TECHNIQUE: PA and lateral views of the chest COMPARISON: None FINDINGS: Trace RIGHT pleural effusion. No conflue nt airspace opacity, pleural effusion, or pneumothorax definitively identified. Cardiomediastinal contours appear within normal limits. Procedure Note Gilberto English MD - 06/06/2020 EXAMINATION: XR CHEST PA AND LATERAL (GE NERIC) CLINICAL HISTORY: CP TECHNIQUE: PA and lateral views of the chest COMPARISON: None FINDINGS: Trace RIGHT pleural effusion. No conflue nt airspace opacity, pleural effusion, or pneumothorax definitively identified. Cardiomediastinal contours appear within normal limits. IMPRESSION Trace RIGHT pleural effusion. No acute cardiopulmonary process otherwi se seen. Thank you for letting us participate in the care of this patient. For questions regarding this report, please contact e number below. Electronically signed by: Gilberto English MD, [facility] ([phone]), at 06/06/2020 7:04 PM Landen Cross MD IMG DX ORDERABLES EKG 12 Lead (06/06/2020 5:26 PM EDT) Component Value Ref Range Test Analysis Performed Pathologis t Method Time At Signature Ventricular rate 103 BPM MUSE SYSTEM Atrial Rate 103 BPM MUSE SYSTEM P-R Interval 158 ms MUSE SYSTEM QRS Duration 104 ms MUSE SYSTEM Q-T Interval 350 ms MUSE SYSTEM QTC Calculated 458 ms MUSE SYSTEM (Bezet) Calculated P [place] 54 degrees MUSE SYSTEM Calculated R [place] 62 degrees MUSE SYSTEM Calculated T [place] 28 degrees MUSE SYSTEM INTERPRETATION Sinus tachycardia MUSE SY STEM Otherwise normal ECG When compared with ECG of 12-MAR-2013 09:27, No significant change was found Confirmed by MD ДМИТРИЙ, JUAN DANIEL ([id number]) on 06/06/2020 9:01:20 P M Specimen Anatomical Collection Method Collection Time Receive d Time (Source) Location / / Volume Laterality 06/06/2020 5:26 PM 0 9:01 EDT PM EDT Lupis Cherry MD ECG ORDERABLES Performing Organization Address City/State/ZIP Code Phon e Number MUSE SYSTEM documented in this encounter Visit Diagnoses Diagnosis Gastroesophageal reflux disease, unspeci fied whether esophagitis present - Primary documented in this encounter Administered Medications Inactive Administered Medications - up to 3 most recent administrations Medication Order MAR Action Action Date Dose Rate Site alum-mag hydroxide-simeth (Maalox) Given 06/06/2020 8:39 PM EDT 30 mLs (40 mg-40 mg-4 mg/mL) oral liquid 30 mL 30 mL, Oral, ONCE, 1 dose, On 06/06/20 at 1948, STAT aspirin tablet 325 mg Given 06/06/2020 6:51 PM EDT 325 mg 325 mg, Oral, ONCE, 1 dose, On 06/06/20 at 1846, STAT famotidine (PEPCID) injection 20 mg Given 06/06/2020 8:39 PM EDT 20 mg 20 mg, Intravenous, ONCE, 1 dose, On 06/06/20 at 1948, STAT iohexoL (Omnipaque) 350 mg/mL solution 0-200 Given 8:13 PM EDT 53 mLs mL 0-200 mL, Intravenous, ONCE PRN, 1 dose, Starting on 06/06/20 at 2013, Until 06/06/20 at 2013, Per Protocol, Warning Vesicant/Irritant Medication , Radiology Contrast, Routine labetaloL (Normodyne,Trandate) injection 10 Given 06/06/2020 10:11 PM EDT 10 mg mg 10 mg, Intravenous, ONCE, 1 dose, On 06/06/20 at 2134, STAT labetaloL (Normodyne,Trandate) injection 5 mg Given 06/06/2020 8:39 PM EDT 5 mg 5 mg, Intravenous, ONCE, 1 dose, On 06/06/20 at 1948, STAT nitroGLYcerin (Nitrostat) disintegrating Given 06/06/2020 7:08 P M EDT 0.4 mg tablet 0.4 mg 0.4 mg, Sublingual, EVERY 5 MIN PRN, 3 doses, Starting on 06/06/20 at 1844, Until 06/07/20 at 0143, Chest pain, SL nitroglycerin may be repeated every 5 minutes as needed up to 3 doses, STAT Given 06/06/2020 6:51 PM EDT 0.4 mg documented in this encounter Active and Recently Administered Medications Times are shown in EDT. Scheduled Medication Order 06/04/2020 06/05/2020 06/06/2020 alum-mag hydroxide-simeth (Maalox) (40 m g-40 mg-4 mg/mL) oral liquid 30 mL (COMPLETED) 2038 (Given - Provid er: Keny James RN) 30 mL, Oral, ONCE, 1 dose, 06/06/20 at 1948, STAT aspirin tablet 325 mg (COMPLETED) 1850 (Given - Provider: Ryan Fernández, JAYSON) 325 mg, Oral, ONCE, 1 dose, 06/06/20 at 184, STAT famotidine (PEPCID) injection 20 mg (COMPLETED) 2038 (Given - Provider: Keny James RN) 20 mg, Intravenous, ONCE, 1 dose, 06/06/20 at 1948, STAT labetaloL (Normodyne,Trandate) injection 10 mg (COMPLETED) 2210 (Given - Provider: Ryan Fernández RN) 10 mg, Intravenous, ONCE, 1 dose, 06/06/20 at 2134, STAT labetaloL (Normodyne,Trandate) injection 5 mg (COMPLETED) 2038 (Given - Provider: Keny James RN) 5 mg, Intravenous, ONCE, 1 dose, 06/06/20 at 1948, STAT PRN Medication Order 06/04/2020 06/05/2020 06/06/2020 iohexoL (Omnipaque) 350 mg/mL solution 0-200 mL (COMPLETED) 2012 (Given - Provider: Aram Faulkner) 0-200 mL, Intravenous, ONCE PRN, 1 dose, Starting 06/06/20 at 2012, Until 06/06/20 at 2012, Per Protocol, Warning Vesicant/Irritant Medication , Radiology Contrast, Routine nitroGLYcerin (Nitrostat) disintegrating tablet 0.4 mg 1850 (Given - Provider: Ryan Fernández, JAYSON)190 (Given - Provider: Ryna Fernández, JAYSON) 0.4 mg, Sublingual, EVERY 5 MIN PRN, 3 d oses, Starting 06/06/20 at 1844, Until 06/07/20 at 0143, Chest pain, SL nitroglycerin may be repeated every 5 minutes as needed up to 3 doses, STAT documented in this encounter Care Teams Thumb Sewer Relationship Specialty Start Date End Date Brissa Stout APRN PCP - General Family Medicine 05/26/20 [address] [place] [address] documented as of this encounter
--- OUTSIDE RECORDS SUMMARY | 2022-04-14 23:23 | XMS_ITS | Encounter Summary ---
:1980 Author Organization [facility] [place] [address] Care Team Providers Name Role Phone Brissa Stout APRN Primary Care Provider Reason for Visit Reason Onset Date Comments Results 04/27/2021 Encounter Details Date Type Department Care Team Description 04/27/2021 Telephone Neurology at [facility] Shawnee Dover MD Results [facility] [place] [address] [place] [id number] NEUROLOGY [phone] [place], [place] [address] (Wo rk) Social History Tobacco Use Types Packs/Day Years Used Date Current Every Day Smoker Cigarettes 1.5 Smokeless Tobacco: Former User Alcohol Use Standard Drinks/Week Comments Yes 7 (1 standard drink = 0.6 oz pure alcoho l) Sex Assigned at Date Recorded Not on file documented as of this encounter Miscellaneous Notes Telephone Encounter - Allison Carrero RN - 05/10/2021 9:07 AM EDT Called Max to to read Result per Dr. Dover: The X-rays did not show signs of fracture or dislocation. Only degenerative changes in spine x-ray.Also there is a comment in the shoulder x-ray of signs of degenerative changes in the AC joint whichwould not be due to epilepsy or seizure, but could cause intermittent pain. If this is something he experiences he can talk to his PCP about this and possibly obtaining more workup like an MRI. Patient asked for the definition of degenerative. Patient informed: to have a degenerative change in a joint is to have age, use, or inflammation changes in the joint that might be: barely noticeable, cause pain, reduced mobility, or stiffness in the joint. Patient verbalized understanding. No other questions or concerns at this time. Telephone Encounter - Heather November - 04/27/2021 2:31 PM EDT Call Center / [place] Message Lab/Test results Request Provider patient sees in Clinic:Stanislaw Caller: self If not Pt / Relation to pt: Call back Number: [phone] OK to leave message: Reason for call: lab/test results ??? Which results are being requested:xrays ??? When were they done:04-20-2021 ??? Where were they done:[facility] Any additional information for the nurse/provider: Disposition of Call: ?? Red Arrow Message sent to Nurse - Reason for RED ARROW Message:n ?? Routine Message sent to the Nurse y ?? Other: n documented in this encounter Plan of Treatment Not on filedocumented as of this encounter Visit Diagnoses Not on filedocumented in this encounter Care Teams Electrical Machine Builder Relationship Specialty Start Date End Date Brissa Stout APRN PCP - General Family Medicine 05/26/20 [address] [place] [address] documented as of this encounter
--- OUTSIDE RECORDS SUMMARY | 2022-04-14 23:23 | XMS_ITS | Encounter Summary ---
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 effective. Nicotine from the lozenge is absorbed through the mucous membranes in your mouth at a certain acidity or pH level. Therefore do not eator drink anything but water for 15 minutes prior to or during use. ?? Directions: Place the nicotine lozenge on the tongue or between the cheek and the jaw. Allow the lozenge to dissolve. Do not bite, chew or swallow whole or in pieces. Do not ???work?? the lozenge likea hard candy or you may create too much saliva and swallow this extra liquid which may upset your stomach. The most common side effects from Nicotine lozenges are nausea, hiccups and heartburn. This can be reduced by following the instructions for proper use. ?? Nicotine lozenges come in two strengths, 2 mg and 4 mg. You should use the 2 mg lozenge if you smokeyour first cigarette more than 30 minutes after waking. You should use the 4 mg lozenge if you smokeyour first cigarette less than 30 minutes after waking. You can use up to 20 lozenges a day. ?? Nicotine lozenges can be combined with Nicotine patches for increased chances of successfully quitting tobacco for good! ?? The US Food and Drug Administration has recently released a statement that there are no significant risks associated with the use of Nicotine Replacement Therapy products for longer than the labeled number of weeks of use. ?? References: Treating Tobacco Use and Dependence, Clinical Practice Guideline 2008 Update, U.S. Department of Health and Human Services, December 2007 Franky Moore, MSN, RN-BC, [facility] [email or web address] [email or web address] Future Appointments and Orders Future Appointments and Orders Future Appointments Provider Department Dept Phone 12/15/2020 2:00 PM Shawnee Dover MD; Meche Perez MD Neurology at [facility] Arrive at: [facility] [address] [phone] Future Orders Complete By Expires Referral to [place] [employer] [[id number] Custom] As directed Process Instructions: If no progress note charted, please enter Clinical details in comments. Scheduling Instructions: Questions: My question or request is: Tobacco Cessation: [place] [id number] Patient consented to referral to Quitline?: Yes Primary Care Provider: Brissa Stout APRN [address] [place] [address] Discharge References/Attachments Smoking: Stopping (Filipino) Smoking Cessation: Health Benefits: General Info (Filipino) Associated attestation - Edi Knapp MD - 12/11/2020 2:26 AM EDT NEUROLOGY / EPILEPSY ATTENDING ADDENDUM AND ATTESTATION - This patient was seen in conjunction with Valerie Kruger APRN as part of a shared visit. I evaluated the patient with the Neurology team during bedside rounds. I have reviewed the medical records and patient's history, as well as the history and examination findings and I agree with the details as written. My neurologic examination confirms the findings. We formulated the assessment and plan after a detailed discussion, as documented. Pt is ready for discharge. No events occurred during VEEG monitoring despite AED wean. VPA restartedfor mood stabilization treatment. No evidence for underlying epilepsy at present. Edi Knapp M.D., Ph.D. Medical Legal Investigator of Neurology documented in this encounter Discharge Instructions Discharge InstructionsFranky Moore RN - 12/06/2020 3:11 PM EDT Congratulations for quitting smoking! Your quit date for quitting smoking is 12/02/2020 ?? You have chosen to quit smoking using Nicotine patches daily and lozenges as needed. ?? Nicotine patch instructions: Use the 21 mg nicotine patches daily for 4 weeks then, Decrease to the 14 mg patches daily for 2 weeks then, Decrease to the 7 mg patches daily for 2 weeks. ?? If at any time when you decrease the dose you feel an increase in cravings to smoke you may go back to the higher dose for another 2 weeks and then try to decrease the dose again. Do not hesitate to call if you have questions about this or are struggling with cravings or withdrawal symptoms. Place the patch on your skin in an area that has a minimal amount of hair, typically between the neck and waist or upper arms. Avoid placing it over scars or tattoos. Change the place where you put it on your skin daily. Remove the patch each morning and replace with a new patch. Fold the patch in half, with the sticky sides in and dispose of it safely, keeping it out of reach of children or pets. Some patients experience nightmares or bad dreams on the patch. If this happens you should remove the patch at bedtime and just replace it each morning. ?? The nicotine patch releases a constant amount of nicotine in the body. The nicotine dissolves right through the skin and enters the body. Less nicotine is obtained through the patch than in cigarettes.The patch does NOT contain all the tars and poisonous gases that are found in cigarettes. ?? Side effects from wearing the patch can include: headaches, dizziness, upset stomach, weakness, blurred vision, vivid dreams, mild itching and burning on the skin, and diarrhea. ?? Wearing the nicotine patch decreases the chances of suffering from several of the major smoking withdrawal symptoms such as tenseness, irritability, drowsiness and lack of concentration. ?? The nicotine patch can be combined with other Nicotine Replacement Therapy products such as Nicotinegum or lozenges. Ask your healthcare provider about combination therapy to increase your chances of successfully quitting tobacco for good! ?? The US Food and Drug Administration has recently released a statement that there are no significant risks associated with the use of Nicotine Replacement Therapy products for longer than the labeled number of weeks of use. ?? If you are still having strong cravings to smoke or are struggling to quit completely while using the Nicotine patch talk with your healthcare provider for additional help. ?? References: Treating Tobacco Use and Dependence, Clinical Practice Guideline 2008 Update, U.S. Department of Health and Human Services, December 2007 Nicotine lozenge instructions: Use the 4 mg lozenges as soon as you wake up, 30 minutes before mealsand at bedtime at a minimum. ?? Nicotine lozenges must be used properly in order to be effective. Nicotine from the lozenge is absorbed through the mucous membranes in your mouth at a certain acidity or pH level. Therefore do not eator drink anything but water for 15 minutes prior to or during use. ?? Directions: Place the nicotine lozenge on the tongue or between the cheek and the jaw. Allow the lozenge to dissolve. Do not bite, chew or swallow whole or in pieces. Do not ???work?? the lozenge likea hard candy or you may create too much saliva and swallow this extra liquid which may upset your stomach. The most common side effects from Nicotine lozenges are nausea, hiccups and heartburn. This can be reduced by following the instructions for proper use. ?? Nicotine lozenges come in two strengths, 2 mg and 4 mg. You should use the 2 mg lozenge if you smokeyour first cigarette more than 30 minutes after waking. You should use the 4 mg lozenge if you smokeyour first cigarette less than 30 minutes after waking. You can use up to 20 lozenges a day. ?? Nicotine lozenges can be combined with Nicotine patches for increased chances of successfully quitting tobacco for good! ?? The US Food and Drug Administration has recently released a statement that there are no significant risks associated with the use of Nicotine Replacement Therapy products for longer than the labeled number of weeks of use. ?? References: Treating Tobacco Use and Dependence, Clinical Practice Guideline 2008 Update, U.S. Department of Health and Human Services, December 2007 Franky Moore MSN, RN-, [facility] [employer] [email or web address] Patient InstructionsValerie Kruger APRN - 12/08/2020 9:01 AM EDT After Visit Summary: (Please ensure patient gets a copy of their full discharge summary as well.) We hope that you have had a positive experience at the [facility] Epilepsy Monitoring Unit. Here is some general information about the details of your stay, and what comes next. YOUR DIAGNOSIS: Paroxysmal events, likely not epileptic in nature, etiology unknown MEDICATIONS CHANGES: Depakote 750mg BID Carnitor 660mg BID ergocalciferoL (vitamin D2) (vitamin D2) capsule 50,000 Units weekly for 8 weeks then 800 to 1,000 units daily (pending follow up labs) FOLLOWUP APPOINTMENT: You will have an outpatient followup appointment in the neurology clinic at [facility]. If not already listed in this document, we will contact you to schedule this appointment. -- If 1 week passes by after you are discharged and you still do not have an appointment, please call [phone]. Future Appointments and Orders Future Appointments and Orders Future Appointments Provider Department Dept Phone 12/15/2020 2:00 PM Shawnee Dover MD; Meche Perez MD Neurology at [facility] [place] Arrive at: [address] [phone] Specific instructions related to your condition: ?? Call your doctor or seek medical attention if you experience an event lasting more than 5 minutes. ?? Advise your family and friends that if you have an episode, they should position you on a flat carpeted surface if possible, in a clear area, to avoid injury. They should turn you on your side if you start to vomit. Keep track of the date and time the event started, how long it lasted, whether or not you lost consciousness, a description of your body movements, what provoked it (if known), and anyinjuries you suffered. ?? Avoid hyperventilating (fast, shallow breathing) because this can make your face and hands tingle. Focus on slow, deep breaths when you feel that you are hyperventilating. ?? Return to the Emergency Department if: ?? You think about hurting or killing yourself or someone else ?? You feel like fainting or are too dizzy to stand up ?? You are having breathing problems ?? You are injured after one of your events. ?? Activity restrictions: To minimize your risk of injury, we recommend avoiding hazardous activities including those in which you might operate heavy machinery, cars, or other machines that could posea risk yourself or others around you. ?? Driving restrictions: [place] Residents: According to [place] driving laws, after you have experienced an episode of loss of consciousness due to a seizure you cannot drive for a minimum of 1 year or until cleared by your physician.We strongly recommend that you avoid driving cars, recreational vehicles or heavy machinery and seekalternate transportation. [Statute: [place] SAF-C 205.08] For more information, please visit [email or web address] [place] Residents: According to [place] driving laws, after you have experienced an episode of lossof consciousness due to a seizure you may not be able drive until cleared by your physician with final approval depending upon the [place] Commissioner. We strongly recommend that you avoid driving cars, recreational vehicles or heavy machinery and seek alternate transportation. [Statute: 23 [place]. STAT.RUTH. ? 636-37] For more information, please visit [email or web address] ?? Diet: As before. For questions regarding this document or issues relating to this hospitalization on the Neurology Service, please contact your inpatient physician through the [facility] Occ Med Physician . Issues afterhours and on weekends will be handled by the Neurology staff on-call. AttachmentsThe following attachments cannot be sent through Care Everywhere. Smoking: Stopping (Filipino)Smoking Cessation: Health Benefits: General Info (Filipino)documented in this encounter Medications at Time of Discharge Medication Sig Dispensed Refills Start Date End Date chlorproMAZINE (Thorazine) Take 100 mg by 0 100 mg Tablet mouth 2 times daily. Takes 150 mg in the morning and 200 mg nightly clonazePAM (KlonoPIN) 1 mg Take 1 mg by mouth 0 Tablet 2 times daily. lisdexamfetamine (VYVANSE) Take 70 mg by 0 70 mg Capsule mouth every morning. traZODone (Desyrel) 100 mg Take 200 mg by 0 Tablet mouth nightly. Takes two tablets nightly fluvoxaMINE (Luvox) 100 mg Take 100 mg by 0 05/28 Tablet mouth 2 times daily. dilTIAZem (TIAZAC) 240 mg Take 240 mg by 0 2020 Capsule,Sustained Action mouth daily. 24 hr lidocaine (Lidoderm) 5% Change 1 patch on 0 06/20 Adhesive Patch, Medicated the skin daily. hydrOXYzine (ATARAX) 25 mg Take 1 tablet by 90 tablet 0 09/2012 tablet mouth 3 times daily as needed for Anxiety. ergocalciferoL, vitamin Take 1 capsule by 4 capsule 1 12/0801/27/2021 D2, (vitamin D2) 50,000 mouth once a week unit Capsule for 8 doses. levOCARNitine (Carnitor) Take 2 tablets by 120 tablet 11 11/1201/04/2022 330 mg Tablet mouth 2 times daily. nicotine (NICODERM CQ) 21 Change 1 patch on 28 patch 0 05/26/2021 mg/24 hr Patch 24 the skin daily. hrIndications: Tobacco abuse nicotine polacrilex Place 1 lozenge 100 tablet 0 12/08/2020 12/20/2021 (COMMIT) 4 mg inside cheek as LozengeIndications: needed for Smoking Tobacco abuse cessation. Take one lozenge every 2 hours as needed. Max dose of 20 lozenges per day. divalproex EC (Depakote) Take 3 tablets by 90 tablet 3 11/1202/15/2021 250 mg Tablet, Delayed mouth 2 times Release (E.C.) daily. sucralfate (Carafate) 1 Take 1 g by mouth 0 10/1912/15/2021 gram Tablet 3 times daily (before meals). celecoxib (CeleBREX) 50 mg Take 100 mg by 0 10/1212/15/2021 Capsule mouth daily. Total dose is 200 mg documented as of this encounter Progress Notes Sara Hernandez RN - 12/08/2020 12:07 PM EDT Max James discharged to Home by private car with Vashti. All belongings sent with patient. MANJU removed, skin free from pressure ulcers. Discharge instructions, medications, and follow-up appointments reviewed, education provided on safety, medications, follow up appointments, paper prescriptions giv en to patient, all questions answered. Patient instructed to call with concerns. Taryn Ochoa MSW - 12/08/2020 11:01 AM EDT Social Work Discharge Note Objective: BATTERY STACKER was requested by RNCM to provide emotional support and AD discussion. BATTERY STACKER to introduce self and role. BATTERY STACKER met with patient at bedside. Patient is A+Ox and was pleasant during visit. Patient also had music playing. Patient reports his support system consists of his GF Nadeen, some friends, and he can call his sister if he needs to. Patient reports he likes all of his doctors as well and his psychiatrist. Patient sees his psychiatrist 1-2x/month for counseling, medication management, and he can call anytime as well. Patient reports he enjoys (identifies as well activities to help his mood/support) fishing, hunting, hiking, playing his guitar, painting, and listening to music (a lot). Patient reports he met Nadeen many years ago, they parted ways and got back together 4-5 years ago. She lives nearby and his main support. Patient reports she is on her way to pick him up. BATTERY STACKER provided education and reviewed AD. Patient reports he has not completed such paperwork and like to take home with him. Patientreports if he has more questions or needs assistance with the form, Nadeen can help as she always helps him with paperwork (trouble hand witting and staying focus). BATTERY STACKER reviewed [place] book[place] and [place] Appointment of HC Agent form. BATTERY STACKER encouraged patient to provide a copy to his agent(s) and PCP once completed. Patient appreciative of assistance and checking in on him. Plan: BATTERY STACKER is available as needed or requested. [facility] [employer] Professor Phone: [phone] Pager: [phone] Jonathan Casey APRN - 12/08/2020 7:58 AM EDT [facility] EPILEPSY MONITORING UNIT- PROGRESS NOTE Max James: 40 y.o.: [id number]: Referring Provider: Brissa Stout APRN: PT ID: Max James is a 40 y.o. y/o left-handed male who is admitted to the video EEG monitoring unit in order to characterize events and establish a diagnosis. There is concern for epilepsy versus non-epileptic seizures versus dual diagnosis. Interval History: - No events overnight Physical Exam Vitals: Blood pressure 150/85, temperature 36.6 ??C (97.9 ??F), temperature source Oral, resp. rate 16, height 177.8 cm (5' 10), weight 81.9 kg (180 lb 9.6 oz), SpO2 97 %. Gen:?awake, alert, NAD, cooperative with exam Mental status: Oriented x 4, no dysarthria, language fluent Psych: mood is good, he is pleasant, forthcoming but appropriate, and engaged with examiner, sense of humor is intact, insight intact CN: PEERL, EOMI without nystagmus. No facial asymmetry. Motor: 5/5 strength in bilateral upper, lower extremities. No pronator drift. Mld tremor- worse withaction affecting UE, LE, trunk Sensation: intact and equal to light touch in all extremities Coordination: finger to nose intact bilaterally, heel to hernández intact bilaterally Gait: Not tested Assessment: Max James is a 40 y.o. y/o left-handed male who is admitted to the video EEG monitoring unit in order to characterize events and establish a diagnosis. There is concern for epilepsy versus non-epileptic seizures versus dual diagnosis. ?? In order to precipitate seizure activity antiepileptic medication will be withheld. This places the patient at a high risk for seizures and status epilepticus, warranting inpatient admission for close monitoring and safety precautions. Upon admission his PRN klonopin was decreased to from 1mg BID PRN t o 1mg daily PRN upon admission, no events occurred overnight and depakote was discontinued the following day (12/05/20). Vit D found to be low, repletion started. He was found to be hyperammonemic with level of 113 upon admission. He was started on carnitor 1,000mg TID and Miralax 17mg BID until effective. Ammonia levels currently:28. Although we spoke with Willam Monge APRN regarding pt wanting to stay off of Depakote as he did notlike it. Saleem approved keeping pt off until he followed up with pt in th out-pt setting. After through review of pt psychiatric history, and inpatient admission in 2012. Psychotic episodes have often resulted from being off medication. The team has decided to keep pt on a decreased Depakote dose (elevated ammonia). Enabling Saleem to follow-up with pt in clinic. ?? No events captured overnight. Pt was restated on him home Depakote and Klonopin [1mg BID PRN] (12/07/20). Dose adjusted from 1000mg BID to 750mg BID. Due to his history of elevated ammonia levels. We also plan to get an ammonia levels for this morning, pending F/U out-pt. Pt is scheduled to be D/C (12/08/20). Plan:? Admit to neurology ? 24 hour Video EEG monitoring ? Seizure precautions ? If no seizure by HD2: Photic, HV, Sleep Deprive ? Basic labs on admission, including AED levels ? Prophylaxis:?? ? Tylenol for pain ? SCDs, Lovenox, ambulate frequently to prevent DVTs. ? Hydroxyzine 25mg q4hrs prn anxiety ? BMX for tongue bite ? ASM Plan ? ASMs ?? Decrease: Depakote 750 BID ?? Resumed: Klonopin 1MG BID PRN ?? Discontinue: ? Other Meds: ?? Switch Celebrex 50mg BID to 100mg AM due to formulary issues. ?? Continue remaining home medications ?? Discontinue: Miralax (12/06/20) ? Rescue plan for acute repetitive seizures ? ??2mg IV Ativan after 1 GTC or 3 focal with impaired awareness (complex partial) seizures in 24 hours or any seizure lasting longer than 5 minutes. ? Nursing seizure exam plan: ? Standard Exam: ?? Assess A&O status, give code word for later recall, follow simple/complex commands, assess language, strength/motor function. ? BMI 25.34: Class Overweight ?? Dispo Planning ? Pending Course ?? CODE STATUS: Full ?? Total time greater than 35 minutes which was spent on pre-charting, reviewing results of diagnostic studies, as well as patient education and counseling. Jonathan Casey APRN Department of Neurology Associated attestation - Edi Knapp MD - 12/11/2020 2:24 AM EDT NEUROLOGY / EPILEPSY ATTENDING ADDENDUM AND ATTESTATION - This patient was seen in conjunction with Jonathan Casey APRN as part of a shared visit. I evaluated the patient with the Neurology team during bedside rounds. I have reviewed the medical records and patient's history, as well as the history and examination findings and I agree with the details as written. My neurologic examination confirms the findings. We formulated the assessment and plan after a detailed discussion, as documented. Edi Knapp M.D., Ph.D. Medical Legal Investigator of Neurology Anastasia Morales LPN - 12/07/2020 4:30 PM EDT Patient A&Ox4. AVSS. Seizure precautions maintained, exercise pedals used, no events. Patient ambulated to bathroom. Patient remained in chair, significant other at bedside. Patient reported HALE andanxiety, prn medication given (see MAR) w/good results. Jonathan Casey APRN - 12/07/2020 9:06 AM EDT [facility] EPILEPSY MONITORING UNIT- PROGRESS NOTE Max James: 40 y.o.: [id number]: Referring Provider: Brissa Stout APRN: PT ID: Max James is a 40 y.o. y/o left-handed male who is admitted to the video EEG monitoring unit in order to characterize events and establish a diagnosis. There is concern for epilepsy versus non-epileptic seizures versus dual diagnosis. Interval History: - No events overnight Physical Exam Vitals: Blood pressure 133/80, temperature 36.6 ??C (97.8 ??F), temperature source Oral, resp. rate 17, height 177.8 cm (5' 10), weight 81.9 kg (180 lb 9.6 oz), SpO2 98 %. Gen:?awake, alert, NAD, cooperative with exam Mental status: Oriented x 4, no dysarthria, language fluent Psych: mood is good, he is pleasant, forthcoming but appropriate, and engaged with examiner, sense of humor is intact, insight intact CN: PEERL, EOMI without nystagmus. No facial asymmetry. Motor: 5/5 strength in bilateral upper, lower extremities. No pronator drift. Mld tremor- worse withaction affecting UE, LE, trunk Sensation: intact and equal to light touch in all extremities Coordination: finger to nose intact bilaterally, heel to hernández intact bilaterally Gait: Not tested Assessment: Max James is a 40 y.o. y/o left-handed male who is admitted to the video EEG monitoring unit in order to characterize events and establish a diagnosis. There is concern for epilepsy versus non-epileptic seizures versus dual diagnosis. ?? In order to precipitate seizure activity antiepileptic medication will be withheld. This places the patient at a high risk for seizures and status epilepticus, warranting inpatient admission for close monitoring and safety precautions. Upon admission his PRN klonopin was decreased to from 1mg BID PRN t o 1mg daily PRN upon admission, no events occurred overnight and depakote was discontinued the following day (12/05/20). Vit D found to be low, repletion started. He was found to be hyperammonemic with level of 113 upon admission. He was started on carnitor 1,000mg TID and Miralax 17mg BID until effective. Ammonia levels currently:28. Although we spoke with Willam Monge APRN regarding pt wanting to stay off of Depakote as he did notlike it. Saleem approved keeping pt off until he followed up with pt in th out-pt setting. After through review of pt psychiatric history, and inpatient admission in 2012. Psychotic episodes have often resulted from being off medication. The team has decided to keep pt on a decreased Depakote dose (elevated ammonia). Enabling Saleem to follow-up with pt in clinic. ?? Pt has expressed interest in leaving, insisting to the team that he will leave tomorrow (12/08/20).We informed pt that we have not captured an event yet, and would like an additional day of monitoring. Additionally, we are restarting him on home medication Depakote. We are reducing it from 1000mg BID to 750mg BID. Due to his elevated ammonia levels. We also plan to get an ammonia level check for tomorrow morning (12/08/20) and move forward with D/C. We are also resuming home med Klonopin 1mg BID PRN today (12/07/20). Plan:? Admit to neurology ? 24 hour Video EEG monitoring ? Seizure precautions ? If no seizure by HD2: Photic, HV, Sleep Deprive ? Basic labs on admission, including AED levels ? Prophylaxis:?? ? Tylenol for pain ? SCDs, Lovenox, ambulate frequently to prevent DVTs. ? Hydroxyzine 25mg q4hrs prn anxiety ? BMX for tongue bite ? ASM Plan ? ASMs ?? Decrease: Depakote 750 BID ??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 seizure activity antiepileptic medication will be withheld. This places the patient at a high risk for seizures and status epilepticus, warranting inpatient admission for close monitoring and safety precautions. We will cut his PRN klonopin to from 1mg BID PRN to 1mg daily PRN starting tonight. Plan: ??? Admit to neurology o 24 hour Video EEG monitoring o Seizure precautions o If no seizure by HD2: Photic, HV, Sleep Deprive o Basic labs on admission, including AED levels o Prophylaxis: o Tylenol for pain o SCDs, Lovenox, ambulate frequently to prevent DVTs. o Hydroxyzine 25mg q4hrs prn anxiety o BMX for tongue bite ??? ASM Plan o ASMs - Continue: Depakote 1000mg BID - Decrease: Klonopin 1mg Daily PRN (from 1mg BID PRN) o Other Meds: - Continue remaining home medications ??? Rescue plan for acute repetitive seizures o 2mg IV Ativan after 1 GTC or 3 focal with impaired awareness (complex partial) seizures in 24 hours or any seizure lasting longer than 5 minutes. ??? Nursing seizure exam plan: o Standard Exam: - Assess A&O status, give code word for later recall, follow simple/complex commands, assess language, strength/motor function. ??? Dispo Planning o Pending Course CODE STATUS: Full Total time greater than 70 minutes which was spent on pre-charting, H&P, reviewing diagnostic studies and plan for admission as well as patient education and counseling of admission expectations. Melonie Tejada APRN [facility] Epilepsy Program Team Pager: [phone] NEUROLOGY / EPILEPSY ATTENDING ADDENDUM AND ATTESTATION - This patient was seen in conjunction with Melonie Tejada APRN as part of a shared visit. I evaluated the patient with the Neurology team during bedside rounds. ??I have reviewed the medicalrecords and patient's history, as well as the history and examination findings and I agree with the details as written. ??My neurologic examination confirms the findings. ??We formulated the assessmentand plan after a detailed discussion, as documented. ?? Edi Knapp M.D., Ph.D. Medical Legal Investigator of Neurology documented in this encounter Procedure Notes Edi Knapp MD - 12/08/2020 1:03 PM EDTAssociated Order(s): VIDEO EEG MONITORING [facility] Department of Neurology Inpatient Continuous EEG Final Report Name of the Patient: Max James Date of : 1980 Date of Service: 12/08/2020 Referring physician: Melonie Tejada APRN BRIEF HISTORY: Max James is a 40 y.o. patient with seizures. METHODS: A 21 channel digitized continuous electroencephalogram with video was set up and recording started at 19:00 on 12/02/2020. Following explanation of the procedure, the 10/20 international system of electrode placement was used to determine electrode placement and disposable MRI conditional electrodes were applied using the paste/collodion method of application. In addition to EEG the patient was monitored for EKG. Video was recorded during the session. Pertinent medications: Home medications: Depakote 1000 mg BID, Klonopin 1 mg BID PRN Day #1 (12/02/2020): Depakote 1000 mg BID, Klonopin 1 mg daily PRN Day #2 (12/03/2020): No AEDs Day #3 (12/04/2020): No AEDs Day #4 (12/05/20): No AEDS Day #5 (12/06/20): No AEDS Day #6 (12/06/20): Depakote 750 twice daily Start time: 05:00 12/07/2020 End time: 12:12 12/08/2020 Duration: 31:12 ELECTROENCEPHALOGRAPHER'S REPORT Background During the awake state with the eyes closed the background consisted of a moderate amplitude, 8-9 Hzposterior reactive rhythm that attenuated appropriately with eye opening. Beta activity was distributed diffusely with an anterior predominance. There was a normal anterior-posterior voltage gradient. W ith eye opening the background activity changed to a low voltage mixture of alpha, beta, and occasional theta range frequencies. There were no significant asymmetries of background activity noted. Sleep Stage II/III sleep was obtained and consisted of symmetrical sleep spindles, vertex sharp waves, anddiffuse delta slowing. Abnormal Interictal Activity None Clinical Events 12/05 - 12/06 Recording No push button events. 12/06 - 12/07 Recording No push button events. 12/07 - 12/08 Recording No push button events. Provocative Maneuvers Hyperventilation was not performed. Photic stimulation was notperformed. INTERPRETATION This EEG continues to be normal during the awake, drowsy, and sleep states. No focal, lateralizing, or epileptiform discharges were seen. CLINICAL CORRELATION This continuous video EEG monitoring is normal. Patient was recorded from 12/02 - 12/08. The patient'stypical events were not captured during this EMU admission and thus makes the diagnosis of epilepsy unlikely but not completely ruled out. Patient is being discharged home on a lower dose of depakote (750 mg BID) to continue to treat his diagnosis of bipolar disorder. Varinder Vences MD Clinical Neurophysiology Fellow - PGY-5 Personal Pager: [phone] 12/08/20 EPILEPSY ATTENDING ADDENDUM - I reviewed the EEG with the RUBBER ATTACHER/Epilepsy fellow, and I agree with the interpretation as documented. Edi Knapp MD, PhD Medical Legal Investigator of Neurology [facility] Clinical Neurophysiology Laboratory Vangie, Varinder Dominguez MD - 12/07/2020 11:57 AM EDT [facility] Department of Neurology Inpatient Continuous EEG Report Name of the Patient: Max James Date of : 1980 Date of Service: 12/07/2020 Referring physician: Melonie Tejada APRN BRIEF HISTORY: Max James is a 40 y.o. patient with seizures. METHODS: A 21 channel digitized continuous electroencephalogram with video was set up and recording started at 19:00 on 12/02/2020. Following explanation of the procedure, the 10/20 international system of electrode placement was used to determine electrode placement and disposable MRI conditional electrodes were applied using the paste/collodion method of application. In addition to EEG the patient was monitored for EKG. Video was recorded during the session. Pertinent medications: Home medications: Depakote 1000 mg BID, Klonopin 1 mg BID PRN Day #1 (12/02/2020): Depakote 1000 mg BID, Klonopin 1 mg daily PRN Day #2 (12/03/2020): No AEDs Day #3 (12/04/2020): No AEDs Day #4 (12/05/20): No AEDS Day #4 (12/06/20): No AEDS Start time: 05:00 12/06/2020 End time: 05:00 12/07/2020 Duration: 24 hours ELECTROENCEPHALOGRAPHER'S REPORT Background During the awake state with the eyes closed the background consisted of a moderate amplitude, 8-9 Hzposterior reactive rhythm that attenuated appropriately with eye opening. Beta activity was distributed diffusely with an anterior predominance. There was a normal anterior-posterior voltage gradient. W ith eye opening the background activity changed to a low voltage mixture of alpha, beta, and occasional theta range frequencies. There were no significant asymmetries of background activity noted. Sleep Stage II/III sleep was obtained and consisted of symmetrical sleep spindles, vertex sharp waves, anddiffuse delta slowing. Abnormal Interictal Activity None Clinical Events 12/05 - 12/06 Recording No push button events. Provocative Maneuvers Hyperventilation was not performed. Photic stimulation was notperformed. INTERPRETATION This EEG continues to be normal during the awake, drowsy, and sleep states. No focal, lateralizing, or epileptiform discharges were seen. CLINICAL CORRELATION This continuous video EEG monitoring is normal. No events have been captured thus far. No seizures or epileptiform discharges. Varinder Vences MD Clinical Neurophysiology Fellow - PGY-5 Personal Pager: [phone] 12/07/20 Associated attestation - Edi Knapp MD - 12/11/2020 2:27 AM EDT EPILEPSY ATTENDING ADDENDUM - I reviewed the EEG with the RUBBER ATTACHER/Epilepsy fellow, and I agree with the interpretation as documented. Edi Knapp MD, PhD Medical Legal Investigator of Neurology [facility] [place] Clinical Neurophysiology Laboratory Varinder Vences MD - 12/06/2020 11:44 AM EDT [facility] Department of Neurology Inpatient Continuous EEG Report Name of the Patient: Max James Date of : 1980 Date of Service: 12/05/2020 Referring physician: Melonie Tejada APRN BRIEF HISTORY: Max James is a 40 y.o. patient with seizures. METHODS: A 21 channel digitized continuous electroencephalogram with video was set up and recording started at 19:00 on 12/02/2020. Following explanation of the procedure, the 10/20 international system of electrode placement was used to determine electrode placement and disposable MRI conditional electrodes were applied using the paste/collodion method of application. In addition to EEG the patient was monitored for EKG. Video was recorded during the session. Pertinent medications: Home medications: Depakote 1000 mg BID, Klonopin 1 mg BID PRN Day #1 (12/02/2020): Depakote 1000 mg BID, Klonopin 1 mg daily PRN Day #2 (12/03/2020): No AEDs Day #3 (12/04/2020): No AEDs Day #4 (12/05/20): No AEDS Start time: 05:00 12/05/2020 End time: 05:00 12/06/2020 Duration: 24 hours ELECTROENCEPHALOGRAPHER'S REPORT Background During the awake state with the eyes closed the background consisted of a moderate amplitude, 8-9 Hzposterior reactive rhythm that attenuated appropriately with eye opening. Beta activity was distributed diffusely with an anterior predominance. There was a normal anterior-posterior voltage gradient. W ith eye opening the background activity changed to a low voltage mixture of alpha, beta, and occasional theta range frequencies. There were no significant asymmetries of background activity noted. Sleep Stage II/III sleep was obtained and consisted of symmetrical sleep spindles, vertex sharp waves, anddiffuse delta slowing. Abnormal Interictal Activity None Clinical Events 12/05 - 12/06 Recording No push button events. Provocative Maneuvers Hyperventilation was not performed. Photic stimulation was not performed. INTERPRETATION This EEG continues to be normal during the awake, drowsy, and sleep states. CLINICAL CORRELATION This continuous video EEG monitoring is normal. No events have been captured thus far. No seizures or epileptiform discharges. Varinder Vences MD Clinical Neurophysiology Fellow - PGY-5 Personal Pager: [phone] 12/06/20 Associated attestation - Edi Knapp MD - 12/06/2020 2:12 PM EDT EPILEPSY ATTENDING ADDENDUM - I reviewed the EEG with the RUBBER ATTACHER/Epilepsy fellow, and I agree with the interpretation as documented. Edi Knapp MD, PhD Medical Legal Investigator of Neurology [facility] Clinical Neurophysiology Laboratory Edi Knapp MD - 12/05/2020 4:36 AM EDT [facility] Department of Neurology Inpatient Continuous EEG Report Name of the Patient: Max James Date of : 1980 Date of Service: 12/05/2020 Referring physician: Melonie Tejada APRN BRIEF HISTORY: Max James is a 40 y.o. patient with seizures. METHODS: A 21 channel digitized continuous electroencephalogram with video was set up and recording started at 19:00 on 12/02/2020. Following explanation of the procedure, the 10/20 international system of electrode placement was used to determine electrode placement and disposable MRI conditional electrodes were applied using the paste/collodion method of application. In addition to EEG the patient was monitored for EKG. Video was recorded during the session. Pertinent medications: Home medications: Depakote 1000 mg BID, Klonopin 1 mg BID PRN Day #1 (12/02/2020): Depakote 1000 mg BID, Klonopin 1 mg daily PRN Day #2 (12/03/2020): No AEDs Day #3 (12/04/2020): No AEDs Start time: 05:00 12/04/2020 End time: 05:00 12/05/2020 Duration: 24 hours ELECTROENCEPHALOGRAPHER'S REPORT Background During the awake state with the eyes closed the background consisted of a moderate amplitude, 8-9 Hzposterior reactive rhythm that attenuated appropriately with eye opening. Beta activity was distributed diffusely with an anterior predominance. There was a normal anterior-posterior voltage gradient. W ith eye opening the background activity changed to a low voltage mixture of alpha, beta, and occasional theta range frequencies. There were no significant asymmetries of background activity noted. Sleep Stage II/III sleep was obtained and consisted of symmetrical sleep spindles, vertex sharp waves, anddiffuse delta slowing. Abnormal Interictal Activity None Clinical Events None Provocative Maneuvers Hyperventilation was not performed. Photic stimulation resulted in symmetrical driving at a number of frequencies, but no abnormal activity or seizures. INTERPRETATION This EEG is normal during the awake, drowsy, and sleep states. CLINICAL CORRELATION This continuous video EEG monitoring is normal. No events have been captured thus far. No seizures or epileptiform discharges. Eamon Concepcion MD Epilepsy fellow EPILEPSY ATTENDING ADDENDUM - I reviewed the EEG with the RUBBER ATTACHER/Epilepsy fellow, and I agree with the interpretation as documented. Edi Knapp MD, PhD Medical Legal Investigator of Neurology [facility] Clinical Neurophysiology Laboratory Edi Knapp MD - 12/04/2020 1:18 PM EDT [facility] Department of Neurology Inpatient Continuous EEG Report Name of the Patient: Max James Date of : 1980 Date of Service: 12/04/2020 Referring physician: Melonie Tejada APRN BRIEF HISTORY: Max James is a 40 y.o. patient with seizures. METHODS: A 21 channel digitized continuous electroencephalogram with video was set up and recording started at 19:00 on 12/02/2020. Following explanation of the procedure, the 10/20 international system of electrode placement was used to determine electrode placement and disposable MRI conditional electrodes were applied using the paste/collodion method of application. In addition to EEG the patient was monitored for EKG. Video was recorded during the session. Pertinent medications: Home medications: Depakote 1000 mg BID, Klonopin 1 mg BID PRN Day #1 (12/02/2020): Depakote 1000 mg BID, Klonopin 1 mg daily PRN Day #2 (12/03/2020): No AEDs Start time: 06:56 12/03/2020 End time: 05:00 12/04/2020 Duration: 22 hours 4 mins ELECTROENCEPHALOGRAPHER'S REPORT Background During the awake state with the eyes closed the background consisted of a moderate amplitude, 8-9 Hzposterior reactive rhythm that attenuated appropriately with eye opening. Beta activity was distributed diffusely with an anterior predominance. There was a normal anterior-posterior voltage gradient. W ith eye opening the background activity changed to a low voltage mixture of alpha, beta, and occasional theta range frequencies. There were no significant asymmetries of background activity noted. Sleep Stage II/III sleep was obtained and consisted of symmetrical sleep spindles, vertex sharp waves, anddiffuse delta slowing. Abnormal Interictal Activity None Clinical Events None Provocative Maneuvers Hyperventilation was not performed. Photic stimulation was not performed. INTERPRETATION This EEG is normal during the awake, drowsy, and sleep states. CLINICAL CORRELATION This continuous video EEG monitoring is normal. No events have been captured thus far. No seizures or epileptiform discharges. Eamon Concepcion MD Epilepsy fellow 12/04/2020 1:18 PM. EPILEPSY ATTENDING ADDENDUM - I reviewed the EEG with the RUBBER ATTACHER/Epilepsy fellow, and I agree with the interpretation as documented. Edi Knapp MD, PhD Medical Legal Investigator of Neurology [facility] Clinical Neurophysiology Laboratory Edi Knapp MD - 12/02/2020 7:08 PM EDT [facility] Department of Neurology Inpatient Continuous EEG Report Name of the Patient: Max James Date of : 1980 Date of Service: 12/02/2020 Referring physician: Melonie Tejada APRN BRIEF HISTORY: Max James is a 40 y.o. patient with seizures. MEDICATIONS: Current Facility-Administered Medications Medication Dose Route Frequency Provider Last Rate Last Admin ??? [START ON 12/03/2020] chlorproMAZINE (Thorazine) tablet 150 mg 150 mg Oral Daily Melonie Tejada, CONTACT CENTER ENGINEER ??? chlorproMAZINE (Thorazine) tablet 200 mg 200 mg Oral Nightly Melonie Tejada, CONTACT CENTER ENGINEER ??? dilTIAZem CD (Cardizem CD) capsule 240 mg 240 mg Oral Nightly Melonie Tejada, CONTACT CENTER ENGINEER ??? divalproex EC (Depakote) tablet 1,000 mg 1,000 mg Oral BID Melonie Tejada, CONTACT CENTER ENGINEER ??? hydrOXYzine (Atarax) tablet 25 mg 25 mg Oral TID PRN Melonie Tejada, CONTACT CENTER ENGINEER ??? fluvoxaMINE (Luvox) tablet 100 mg 100 mg Oral BID Melonie Tejada, CONTACT CENTER ENGINEER ??? lidocaine (Lidoderm) 5% topical patch 1 patch 1 patch Transdermal Daily PRN Melonie Tejada,CONTACT CENTER ENGINEER ??? [START ON 12/03/2020] lisdexamfetamine (Vyvanse) capsule 70 mg 70 mg Oral QAM Melonie Tejada, CONTACT CENTER ENGINEER ??? sucralfate (Carafate) tablet 1 g 1 g Oral TID AC Melonie Tejada, CONTACT CENTER ENGINEER 1 g at 12/02/20 1742 ??? traZODone (Desyrel) tablet 200 mg 200 mg Oral Nightly Melonie Tejada, CONTACT CENTER ENGINEER ??? sodium chloride 0.9 % (flush) flush 5 mL 5 mL Intravenous BID Melonie Tejada, CONTACT CENTER ENGINEER ??? sodium chloride 0.9 % (flush) flush 5-20 mL 5-20 mL Intravenous Q1 Min PRN Melonie Tejada, CONTACT CENTER ENGINEER ??? lidocaine (Xylocaine) 1% (10 mg/mL) injection 3 mg 0.3 mL Subcutaneous Once PRN Melonie Tejada, CONTACT CENTER ENGINEER ??? LORazepam (Ativan) (2 mg/mL) injection 2 mg 2 mg Intravenous Once PRN Melonie Tejada, CONTACT CENTER ENGINEER Or ??? diazePAM (Diastat) 12.5-15-17.5-20 mg rectal gel Kit 15 mg 15 mg Rectal Once PRN Melonie Tejada, CONTACT CENTER ENGINEER ??? nicotine (NICODERM CQ) 21 mg/24 hr patch 21 mg 1 patch Transdermal Daily Melonie Tejada CONTACT CENTER ENGINEER 21 mg at 12/02/20 1742 And ??? Patch Verification 1 patch Transdermal BID Melonie Tejada, CONTACT CENTER ENGINEER And ??? [START ON 12/03/2020] nicotine (NICODERM CQ) 21 mg/24 hr patch Patch Removal 1 patch Transdermal Daily Melonie Tejada CONTACT CENTER ENGINEER ??? nicotine polacrilex (COMMIT) lozenge 2 mg 2 mg Buccal Q1H PRN Melonie Tejada CONTACT CENTER ENGINEER ??? docusate sodium (Colace) capsule 100 mg 100 mg Oral BID Melonie Tejada, CONTACT CENTER ENGINEER ??? enoxaparin (Lovenox) (40 mg/0.4 mL) subcutaneous injection 40 mg 40 mg Subcutaneous Nightly Melonie Tejada, CONTACT CENTER ENGINEER ??? celecoxib (CeleBREX) capsule 100 mg 100 mg Oral Daily Melonie Tejada CONTACT CENTER ENGINEER 100 mg at 12/02/20 1802 ??? clonazePAM (KlonoPIN) tablet 1 mg 1 mg Oral Daily PRN Melonie Tejada, CONTACT CENTER ENGINEER METHODS: A 21 channel digitized continuous electroencephalogram with video was set up and recording started at 19:00 on 12/02/2020. Following explanation of the procedure, the 10/20 international system of electrode placement was used to determine electrode placement and disposable MRI conditional electrodes were applied using the paste/collodion method of application. In addition to EEG the patient was monitored for EKG. Video was recorded during the session. SOUND CUTTER'S REPORT: Performed by: Purvi Millan At the onset of the recording the patient was awake. Movement and other artifact was not significant. Comments:none Pertinent medications: Home medications: Depakote 1000 mg BID, Klonopin 1 mg BID PRN Day #1 (12/02/2020): Depakote 1000 mg BID, Klonopin 1 mg daily PRN Start time: 18:55 12/02/2020 End time: 06:55 12/03/2020 ELECTROENCEPHALOGRAPHER'S REPORT Background During the awake state with the eyes closed the background consisted of a moderate amplitude, 8-9 Hzposterior reactive rhythm that attenuated appropriately with eye opening. Beta activity was distributed diffusely with an anterior predominance. There was a normal anterior-posterior voltage gradient. W ith eye opening the background activity changed to a low voltage mixture of alpha, beta, and occasional theta range frequencies. There were no significant asymmetries of background activity noted. Sleep Stage II/III sleep was obtained and consisted of symmetrical sleep spindles, vertex sharp waves, anddiffuse delta slowing. Abnormal Interictal Activity None Clinical Events None Provocative Maneuvers Hyperventilation was not performed. Photic stimulation was not performed. INTERPRETATION This EEG is normal during the awake, drowsy, and sleep states. CLINICAL CORRELATION This day #1 of video EEG monitoring is normal. No events have been captured thus far. No seizures orepileptiform discharges. The patient's Depakote is being held and EEG recording continued in an effort to capture events. Shawnee Dover MD Epilepsy fellow #[id number] 12/03/2020 10:46 AM. EPILEPSY ATTENDING ADDENDUM - I reviewed the EEG with the RUBBER ATTACHER/Epilepsy fellow, and I agree with the interpretation as documented. Edi Knapp MD, PhD Medical Legal Investigator of Neurology [facility] Clinical Neurophysiology Laboratory documented in this encounter Miscellaneous Notes Care Management - Jesica Miranda RN - 12/08/2020 12:02 PM EDT D/C planning: Team: Da Pager: [phone] Pt to d/c home via private vehicle. Pt/team feel no d/c needs identified at this time. Pt is aware of d/c plan. Jesica Miranda MSN, RN CM cardiac monitor technician Office of Care Management Pager #[phone] Plan of Care - Martin Roberts RN - 12/08/2020 6:49 AM EDT OUTCOME EVALUATION NOTE: OUTCOME SUMMARY: Patient alert and oriented. Back on AEDs. No overt seizure activity. PLAN MOVING FORWARD: Continue to monitor for seizure activity. INDIVIDUALIZED FALL PREVENTION INTERVENTIONS: Patient-specific fall risk factors per assessment: Patient here for seizure monitoring which makes him a higher fall risk. Assistance: SBA, Supervision: Eyes on Surveillance: Bed locked in low position, call huffman within reach, purposeful hourly rounding, clutter free environment, bed/chair alarm on, Patient-specific fall prevention interventions for sensory deficits provided: N/A CPG GOAL OUTCOME EVALUATION: Continue care plan as documented. Plan of Care - Selma Alfonso RN - 12/07/2020 5:55 PM EDT OUTCOME EVALUATION NOTE: OUTCOME SUMMARY: See SOLDER [employer]EV[employer] note below. Seizure precautions maintained, no events reported or witnessed. Will continue to assess. PLAN MOVING FORWARD: Discharge planning. INDIVIDUALIZED FALL PREVENTION INTERVENTIONS: Patient-specific fall risk factors per assessment: at risk for events, medical equipment, hospital environment Assistance: 1 assist Supervision: Eyes on, Arms reach Surveillance: Bed locked in low position, call huffman within reach, purposeful hourly rounding, clutter free environment, bed/chair alarm on, VEEG Patient-specific fall prevention interventions for sensory deficits provided: Yes CPG GOAL OUTCOME EVALUATION: Continue care plan as documented. Plan of Care - Martin Roberts RN - 12/07/2020 5:03 AM EDT OUTCOME EVALUATION NOTE: OUTCOME SUMMARY: Patient alert and oriented. Monitoring for seizures. No overt activity noted. PLAN MOVING FORWARD: Continue to monitor for seizure activity. INDIVIDUALIZED FALL PREVENTION INTERVENTIONS: Patient-specific fall risk factors per assessment: Patient being monitor for seizure activity which makes him a higher fall risk. Assistance: SBA, Supervision: Eyes on Surveillance: Bed locked in low position, call huffman within reach, purposeful hourly rounding, clutter free environment, bed/chair alarm on, Patient-specific fall prevention interventions for sensory deficits provided: N/A CPG GOAL OUTCOME EVALUATION: Continue care plan as documented. Plan of Care - Clarita Rolon RN - 12/06/2020 5:35 PM EDT OUTCOME EVALUATION NOTE: OUTCOME SUMMARY: Alert and oriented X4. AVSS. Up to chair, fall precautions maintained. Seizure precautions maintained, no events reported or witnessed. Given PRN medication for anxiety (see MAR). Otherwise, no acute issues or concerns. Consult to smoking cessation nurse and patient Will continue to assess. PLAN MOVING FORWARD: Monitor for event. Discharge planning. INDIVIDUALIZED FALL PREVENTION INTERVENTIONS: Patient-specific fall risk factors per assessment: at risk for events, medical equipment, hospital environment Assistance: 1 assist Supervision: Eyes on, Arms reach Surveillance: Bed locked in low position, call huffman within reach, purposeful hourly rounding, clutter free environment, bed/chair alarm on, family at bedside Patient-specific fall prevention interventions for sensory deficits provided: Yes CPG GOAL OUTCOME EVALUATION: Continue care plan as documented. Consult Note - Franky Moore RN - 12/06/2020 3:17 PM EDT TOBACCO DEPENDENCE TREATMENT NOTE 12/06/2020 Name: Max James Date of : 1980 Reason for visit: Max James is a current everyday smoker and was referred for smoking cessation counseling. 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 Remained tobacco-free for about 18 months. Are there other smokers in the home: No. Girlfriend is a nonsmoker with numerous respiratory complications. All smoking is outside, except for marijuana. Are there children in the home: No What will be different this time: There are so many things I want to do with my life. I just think there's no room for smoking. I haven't had a cigarette in about 3 days now so it's probably a good time to give it a try again. Reasons for quitting: Improve health, save money Concerns about quitting: No Concerns about weight gain: No Triggers for smoking: Daily routines/habits, being around others that smoke Ready to set a quit date: 12/02/2020 Importance/Confidence Scale (How important is it for him to quit/How confident patient is that he can quit on scale of 0(Not at all important)-10(Highest importantance): 05/20 What would help increase confidence: I think this time I'm really ready. NICOTINE DEPENDENCE 0 Points 1Points 2 Points 3 Points Score 1.How soon after you wake do you smoke your first cigarette? After 60 minutes 31-60 minutes minutes 6-30 minutes Within 5 minutes 2 2. Do you find it difficult to refrain from smoking in places where it is forbidden ex voodoo No Yes0 3. Which cigarette would you hate to give up ? All others The first one in the morning 1 4. How many cigarette do you smoke a day ? 10 or less 11-20 21-30 30 or more 1 Do you smoke more frequently during the first hour after waking than the rest of the day? No Yes 1 6. Do you smoke if you are so ill that you are in bed all day ? No Yes 0 Fagerstrom Score: 5 Classification: 0-2 Very low 3-4 Low 5 Moderate 6-7 High 8-10 Very high Stage of Change: Preparation (Hopes to be tobacco-free in 30 days) Precontemplative: Contemplative: Preparation: Action: Maintenance: Assessment/Plan: Referral received. Chart reviewed. I met with Max James to discuss his tobacco use and assess his readiness to quit. He has a Fagerstrom Score of 5, indicating a moderate dependenceon Nicotine. I reviewed the physiology of addiction as well as apparent health risks specific for him. I advised him that quitting smoking is one of the best things he can do for his health now and in the future. I discussed the options for treatment including NRT, Zyban and Chantix. I reviewed possible side effects of therapy. I stressed that medication alone is not optimum but used in conjunction with behavioral counseling will add to success for cessation. The patient decided that the best courseof action for him would be NRT. He is currently wearing a 21 mg nicotine patch and using the 2 mg nicotine lozenges as needed. Instructions for NRT have been included in AVS for review. I reviewed several tips for helping with quitting including the 4D's, using straws cut the length ofcigarettes, cinnamon sticks, flavored toothpicks, sugar free candy, etc. Discussed the importance ofincorporating moderate daily exercise/activity into routine. Pt is interested in using the track near his home for walking, and maybe even start running again. He's interested in bike riding and swimming. He's looking forward to fishing this summer. We talked about what he could do with the money he saves from not smoking. He has been given the Tobacco Treatment Program brochure and the contents have been reviewed with him. He has my card with my contact information and has been encouraged to call if he has additional questions or concerns. Referral to [place] quitline placed (just in case he doesn'thave a prescription plan with his insurance). This office will follow-up in one month to assess tobacco use and provide additional support/resources, if needed. Thank you. Franky Moore, MSN, RN-BC, NCTTP Tobacco Laborer [facility] Pager #[phone] Plan of Care - Martin Roberts RN - 12/06/2020 2:53 AM EDT OUTCOME EVALUATION NOTE: OUTCOME SUMMARY: Patient here for video eeg monitoring. No overt seizure activity noted at this time. Patient sleep deprived until after 2 am. PLAN MOVING FORWARD: Continue to monitor for seizure activity. INDIVIDUALIZED FALL PREVENTION INTERVENTIONS: Patient-specific fall risk factors per assessment: Patient here for seizure monitoring which makes him a higher fall risk. Assistance: SBA, Supervision: Eyes on, Surveillance: Bed locked in low position, call huffman within reach, purposeful hourly rounding, clutter free environment, bed/chair alarm on, Patient-specific fall prevention interventions for sensory deficits provided: N/A CPG GOAL OUTCOME EVALUATION: Continue care plan as documented. Plan of Care - Lynne Montiel RN - 12/05/2020 2:25 AM EDT Illness Severity [] Stable [x] Watcher [] Unstable Patient Summary Reason for admission: characterize events and establish a diagnosis. There is concern for epilepsy versus non-epileptic seizures versus dual diagnosis. Onset & Progression spacing out episodes first noted in 2006, possible shaking episodes in 2004, and possibly also seizures in childhood Semiology: Event type #1 Onset: had a few episodes called seizures as a child. He does not know the specifics about these events and does not have a recollection of the events themselves. Afterwards he would feel extremely tired and sore. Semiology: Occurs out of sleep, develops whole body thrashing with eyes open or closed, mouth open, foaming at mouth, breathing heavily for 2-3 minutes. The thrashing waxes and wanes over minutes as ifhaving 2-3 in a row. He will fall back to sleep afterwards. Aura: he starts to feel spacey like something isn't quite right (+) Tongue biting with some of the episodes, the side of the tongue, (+) urinary and bowel incontinence No identifiable triggers. Postictal: Tired, may wander, HALE Event Type #2 Onset: ~2004 during incarceration Semiology: Occur in the daytime, eyes become glassy and develops slurred speech. Approximately 15 minutes later this develops into whole body shaking with the eyes closed x 1 minute. He is tired afterwards. ? Event Type #3 Moves arms a lot in his sleep too. Relevant PMH: Schizoaffective and/or bipolar disorder Of note Patient states, startles easily, reports he has woke up swinging Significant 24 hour events: 12/04am No seizure events noted, atarax and tylenol given PRN, PT off all AEDs. Able to walk in briones with RN as needed. 12/04 PM: No seizure events noted, Photic stim performed, HALE reported pt received PRN Tylenol Neuro: Neuro exam: alert and oriented X4, delayed responses, denies numbness and tingling, ELIESER CV: AVSS Resp: RA, clear GI: reg diet/thin, pills whole, LBM: POLYSOMNOGRAPHIC TECHNICIAN : urinal or bathroom Heme/ID: none Skin: WDL Social: significant other of four years Action List Mobility goals: SBA, up to chair with kiersten Patient education: importance of using call huffman and don't get up on own, new medication given Serial Labs: Ammonia due for 4 AM labs Walk pt as needed in briones with RN. Other: All seizure precautions in place Plan of Care - Clarita Rolon RN - 12/04/2020 4:46 PM EDT OUTCOME EVALUATION NOTE: OUTCOME SUMMARY: Alert and oriented X4. AVSS. Up to chair, fall precautions maintained. Seizure precautions maintained, no events reported or witnessed. Given PRN medication for anxiety (see MAR). Orders placed for pt to walk to RN in hallway as needed. Otherwise, no acute issues or concerns. Will continue to assess. PLAN MOVING FORWARD: Monitor for event. Discharge planning. INDIVIDUALIZED FALL PREVENTION INTERVENTIONS: Patient-specific fall risk factors per assessment: at risk for events, medical equipment, hospital environment Assistance: 1 assist Supervision: Eyes on, Arms reach Surveillance: Bed locked in low position, call huffman within reach, purposeful hourly rounding, clutter free environment, bed/chair alarm on, family at bedside Patient-specific fall prevention interventions for sensory deficits provided: Yes CPG GOAL OUTCOME EVALUATION: Continue care plan as documented. Plan of Care - Franky Lam RN - 12/04/2020 4:41 AM EDT OUTCOME EVALUATION NOTE: OUTCOME SUMMARY: Reason for admission: characterize events and establish a diagnosis. There is concern for epilepsy versus non-epileptic seizures versus dual diagnosis. Relevant PMH: Schizoaffective and/or bipolar disorder Significant 24 hour events: PT STARTLES EASILY, HE REPORTS HE HAS WOKE UP SWINGING! 12/03 pm No seizure events noted, atarax and tylenol given PRN, PT off all AEDs Neuro: q shift ?? Neuro exam: alert and oriented X4, delayed responses, denies numbness and tingling ?? Drains: L 20G ?? Semiology of events: Feels spacey. Occurs out os sleep. May have tongue biting or incontinence during. Whole body thrashing with eyes open or shut, mouth open and foaming at the mouth. Heavy breathing for 2-3 mins then falls back asleep. CV: AVSS, q8 Resp: RA, clear GI: reg diet/thin, pills whole, LBM: POLYSOMNOGRAPHIC TECHNICIAN : urinal or bathroom Heme/ID: none Skin: WDL Social: significant other of four years PLAN MOVING FORWARD: Continue to monitor for seizures INDIVIDUALIZED FALL PREVENTION INTERVENTIONS: Patient-specific fall risk factors per assessment: seizure protocol Assistance: Independent, SBA, 1-2 assist, FWW, gait belt, Stand & Pivot, Mechanical Lift, Supervision: Arms reach, Surveillance: Bed locked in low position, call huffman within reach, purposeful hourly rounding, clutter free environment, bed/chair alarm on, Patient-specific fall prevention interventions for sensory deficits provided:na CPG GOAL OUTCOME EVALUATION: Continue care plan as documented. Plan of Care - Selma Alfonso RN - 12/03/2020 5:37 PM EDT OUTCOME EVALUATION NOTE: OUTCOME SUMMARY: Alert and oriented X4. AVSS. Up to chair, fall precautions maintained. Seizure precautions maintained, no events reported or witnessed. Given PRN medication for anxiety (see MAR). Otherwise, no acute issues or concerns. Will continue to assess. PLAN MOVING FORWARD: Monitor for event. Discharge planning. INDIVIDUALIZED FALL PREVENTION INTERVENTIONS: Patient-specific fall risk factors per assessment: at risk for events, medical equipment, hospital environment Assistance: 1 assist Supervision: Eyes on, Arms reach Surveillance: Bed locked in low position, call huffman within reach, purposeful hourly rounding, clutter free environment, bed/chair alarm on, family at bedside Patient-specific fall prevention interventions for sensory deficits provided: Yes CPG GOAL OUTCOME EVALUATION: Continue care plan as documented. Initial Assessments - Jesica Miranda RN - 12/03/2020 4:26 PM EDT Office of Care Management Assessment Medical record reviewed. Plan of care and patient status discussed with direct care RN and/or Care Team in multidisciplinary rounds. Screening: Last COVID test: Lab Results Component Value Date [id number] Not Detected 12/02/2020 40 y.o. male here for VEEG . Present on Admission: ??? Seizures Patient has not been admitted to a hospital within the last 30 days. Information known about that admission: NA. Patient receiving hospital care under Inpatient status. Admission order reviewed. Primary Insurance on file: MEDICAID [place] Secondary Insurance on file:@ Primary care provider on file: Brissa Stout, CONTACT CENTER ENGINEER [phone] Advance Directive on file and Code Status: <no information>, Attempt Cardiopulmonary Resuscitation - Inpatient Patient???s Functional Status:SBA for mobility currently and set up for ADL's, ind at baseline. Living Situation:Lives in [place] [address] [place] [address] Supports:Nadeen, friends, family Assessment: Patient with no apparent RNCM/SW needs at this time. No housing, transportation, insurance, resources concerns identified at this time. Supports in place to achieve a safe post-hospital transition. No identified barriers to accessing necessary care and/or follow-up after discharge. Plan: Patient to d/c to home via private vehicle when medically ready. cardiac monitor technician/[employer] Law Professor will continue to follow patient???s progress and remain available if situation changes for coordination of care, psychosocial support and/or discharge planning. Office of Care Management CM: Jesica Miranda MSN, RN Pager: [phone] Plan of Care - Zina Peterson RN - 12/03/2020 5:10 AM EDT OUTCOME EVALUATION NOTE: OUTCOME SUMMARY: Pt A&O, takes pills whole and can make needs known. Mood has been good. Has slept most of the shift. No events noted overnight. PLAN MOVING FORWARD: VEEG, med adjustment INDIVIDUALIZED FALL PREVENTION INTERVENTIONS: Patient-specific fall risk factors per assessment: Seizure precautions Assistance: SBA Supervision: Arms reach Surveillance: Bed locked in low position, call huffman within reach, purposeful hourly rounding, clutter free environment, bed/chair alarm on Patient-specific fall prevention interventions for sensory deficits provided: Yes CPG GOAL OUTCOME EVALUATION: Continue care plan as documented. documented in this encounter Plan of Treatment Scheduled Referrals Name Type Priority Associated Diagnoses Order S chedule Referral to [place] Outpatient Referral Routine Tobacco abuse Order ed: [facility] 12/08/2020 documented as of this encounter Procedures Procedure Name Priority Date/Time Associated Comments Diagnosis MAINTENANCE CHIEF ELECTRODE PRFM Routine 12/08/2020 1:03 R esults for this PM EDT procedure are i n the results section. HC VENIPUNCTURE Routine 12/08/2020 11:41 Results for this AM EDT procedure are i n the results section. HC AMMONIA, PLASMA Routine 12/05/2020 5:22 Result s for this AM EDT procedure are i n the results section. HC AMMONIA, PLASMA Routine 12/04/2020 5:14 Result s for this AM EDT procedure are i n the results section. HC THYROID STIMULATING Routine 12/02/2020 6:00 Re sults for this HORMONE, SERUM PM EDT procedure are in the results section. IMMUNOGLOBULINS, Routine 12/02/2020 6:00 Results for this QUANTITATIVE PM EDT procedure are i n the results section. IMMUNOFIXATION Routine 12/02/2020 6:00 Results fo r this ELECTROPHORESIS PM EDT procedure ar e in the results section. HEMOGRAM Routine 12/02/2020 6:00 Results for this PM EDT procedure are i n the results section. DIFFERENTIAL, AUTOMATED Routine 12/02/2020 6:00 R esults for this PM EDT procedure are i n the results section. HC PCH METHYLMALONIC Routine 12/02/2020 6:00 Resu lts for this ACID PM EDT procedure are i n the results section. HC VITAMIN D TOTAL-25 Routine 12/02/2020 6:00 Res ults for this HYDROXY PM EDT procedure are i n the results section. HC CBC,PLT & AUTO DIFF Routine 12/02/2020 6:00 PM EDT HC SERUM PROT. Routine 12/02/2020 6:00 Results fo r this ELECTROPHORESIS PM EDT procedure ar e in the results section. HC VITAMIN B12 SERUM Routine 12/02/2020 6:00 Resu lts for this PM EDT procedure are i n the results section. HC AMMONIA, PLASMA Routine 12/02/2020 6:00 Result s for this PM EDT procedure are i n the results section. HC VALPROIC ACID Routine 12/02/2020 6:00 Results for this PM EDT procedure are i n the results section. COMPREHENSIVE METABOLIC Routine 12/02/2020 6:00 R esults for this PANEL (NON-FASTING) PM EDT procedur e are in the results section. RAPID COVID-19 PCR Routine 12/02/2020 5:25 Result s for this ([facility]) PM EDT procedure are in the results section. EKG 12-LEAD Routine 12/02/2020 4:23 Seizures Results for this PM EDT procedure are i n the results section. documented in this encounter Results EEG video monitoring (12/08/2020 1:03 PM EDT) Narrative Edi Knapp MD - 12/08/2020 1:03 P M EDT Edi Knapp MD ? 12/11/2020 ??2:29 AM [facility] Department of Neurology Inpatient Continuous EEG Final Report Name of the Patient: ??Max James Date of : ?1979 Date of Service: ?12/08/2020 Referring physician: ?Boy Tejada APRN BRIEF HISTORY: Max James is a 40 y.o. patient with s eizures. METHODS: A ??21 channel digitized continuous elec troencephalogram with video was set up and recording started a t 19:00 on 12/02/2020. Following explanation of the procedure, the 10/20 international system of electrode placement was used t o determine electrode placement and disposable MRI conditional electrodes were applied using the paste/collodion method of appl ication. ??In addition to EEG the patient was monitored for EKG. V ideo was recorded during the session. Pertinent medications: Home medications: Depakote 1000 mg BID, Klonopin 1 mg BID PRN Day #1 (12/02/2020): Depakote 1000 mg BID , Klonopin 1 mg daily PRN Day #2 (12/03/2020): No AEDs Day #3 (12/04/2020): No AEDs Day #4 (12/05/20): No AEDS Day #5 (12/06/20): No AEDS Day #6 (12/06/20): Depakote 750 twice da waldemar Start time: 05:00 12/07/2020 End time: 12:12 12/08/2020 Duration: 31:12 ELECTROENCEPHALOGRAPHER'S REPORT Background During the awake state with the eyes gonzalo sed the background consisted of a moderate amplitude, 8-9 H z posterior reactive rhythm that attenuated appropriately wit h eye opening. Beta activity was distributed diffusely with an anterior predominance. There was a normal anterior-posterior vo ltage gradient. With eye opening the background activity changed to a low voltage mixture of alpha, beta, and occasional theta ran ge frequencies. There were no significant asymmetries of backg round activity noted. Sleep Stage II/III sleep was obtained and cons isted of symmetrical sleep spindles, vertex sharp waves, and diffuse delta slowing. Abnormal Interictal Activity None Clinical Events 4/25 - 12/06 Recording No push button events. 12/06 - 12/07 Recording No push button events. 12/07 - 12/08 Recording No push button events. Provocative Maneuvers Hyperventilation was not ??performed. Photic stimulation was notperformed. INTERPRETATION This EEG continues to be normal during t he awake, drowsy, and sleep states. ??No focal, lateralizing, or epileptiform discharges were seen. CLINICAL CORRELATION This continuous video EEG monitoring is normal. ??Patient was recorded from 12/02 - 12/08. ??The patient 's typical events were not captured during this EMU admission and t hus makes the diagnosis of epilepsy unlikely but not completely ruled out. ??Patient is being discharged home on a lower dose of depakote (750 mg BID) to continue to treat his diagnosis of bipol ar disorder. Varinder Vences MD Clinical Neurophysiology Fellow - PGY-5 Personal Pager: [phone] 12/08/20 EPILEPSY ATTENDING ADDENDUM - I reviewed the EEG with the RUBBER ATTACHER/Epilepsy fellow, and I agree with the interpretation as documented. Edi Knapp MD, PhD Medical Legal Investigator of Neurology [facility] Clinical Neurophysiology Laboratory Melonie Tejada CONTACT CENTER ENGINEER NEUROLOGY ORDERABLES Ammonia (12/08/2020 11:41 AM EDT) P athologist Signature Ammonia 29 16 - 60 [facility] LABORATORY Specimen Anatomical Collection Method Collection Time Receive d Time (Source) Location / / Volume Laterality Blood specimen 12/08/2020 11:41 1 (specimen) AM EDT 11:50 AM EDT Resulting Agency Comment Spec In Lab Jonathan Casey CONTACT CENTER ENGINEER CHEMISTRY ORDERABLES Performing Organization Address City/State/[place] [address] Ammonia (12/05/2020 5:22 AM EDT) P athologist Signature Ammonia 28 16 - 60 [facility] LAB[facility] Specimen Anatomical Collection Method Collection Time Receive d Time (Source) Location / / Volume Laterality Blood specimen 12/05/2020 5:22 AM 021 6:02 (specimen) EDT AM EDT Resulting Agency Comment Spec In Lab Edi Knapp MD CHEMISTRY ORDERABLES Performing Organization Address City/[facility]/ZIP Code Phon e Number [address] Ammonia (12/04/2020 5:14 AM EDT) athologist Signature Ammonia 27 16 - 60 [facility] mcmol/L [facility] Specimen Anatomical Collection Method Collection Time Receive d Time (Source) Location / / Volume Laterality Blood specimen 12/04/2020 5:14 AM 021 5:23 (specimen) EDT AM EDT Resulting Agency Comment Spec In Lab William Ramos MD CHEMISTRY ORDERABLES Performing Organization Address [facility] Code Phon e Number [address] Immunofixation Electrophoresis (12/02/2020 6:00 PM EDT) athologist Signature RUMA See Note [facility] Comment: RUMA shows no evidence of a monoclonal im munoglobulin. Ron Dean MD [facility] Pathology 12/09/20 See scanned report. Specimen Anatomical Collection Method Collection Time Receive d Time (Source) Location / / Volume Laterality Blood specimen Venous Draw / 12/02/2020 6:00 PM 2020 6:58 (specimen) Unknown EDT PM EDT Narrative This result has an attachment that is no t available. Resulting Agency Comment Spec In Lab Melonie Tejada APRN CHEMISTRY ORDERABLES Performing Organization Address City/[facility]/[place] [address] (ABNORMAL) Immunoglobulins, Quantitative (12/02/2020 6:00 PM EDT) athologist Signature IgG 642 (L) 700 - 1,600 [facility] mg/dL [facility] Comment: Pediatric Reference Intervals obtained f rom the Caliper Reference Interval project. http://www.sickkids.ca/caliperp roject/index.html IgA 140 70 - 400 mg/dL [facility] IgM 66 40 - 230 mg/dL [facility] Specimen Anatomical Collection Method Collection Time Receive d Time (Source) Location / / Volume Laterality Blood specimen Venous Draw / 12/02/2020 6:00 PM 2020 6:58 (specimen) Unknown EDT PM EDT Resulting Agency Comment Spec In Lab Melonie Tejada APRN CHEMISTRY ORDERABLES Performing Organization Address City/State/[place] [address] Differential, Automated (12/02/2020 6:00 PM EDT) athologist Signature Neutrophils % 60.4 % [facility] Neutr Abs (ANC) 6.01 1.70 - [facility] 6.10 [facility] x10(3)/[facility] LABORATORY Lymphocytes % 28.7 % [facility] Lymphocytes Abs 2.8 0.9 - 3.2 [facility] x10(3)/[facility] LABORATORY Monocytes % 8.6 % [facility] Monocyte Abs 0.8 0.3 - 0.9 [facility] x10(3)/[facility] LABORATORY Eosinophils % 1.5 % [facility] Eosinophils Abs 0.2 0.0 - 0.4 [facility] x10(3)[facility] LABORATORY Basophils % 0.6 % [facility] Basophils Abs 0.1 0.0 - 0.1 [facility] x10(3)/[facility] LABORATORY Immature Gran % 0.20 % [facility] Comment: Immature granulocytes(IG's)percentage an d absolute count will include metamyelocytes, myelocytes, and promyelo cytes. Blood smears from CBCs yielding IG's will be scanned manually for concor dance. If this scan disagrees with the automated IG or if promyelocytes are not ed, a manual differential will be performed. Rosa Gran Abs 0.02 0.00 - 0.04 x10(3)/[facility] Specimen Anatomical Collection Method Collection Time Receive d Time (Source) Location / / Volume Laterality Blood specimen 12/02/2020 6:00 PM 021 6:35 (specimen) EDT PM EDT Resulting Agency Comment Spec In Lab Melonie Tejada APRN HEMATOLOGY ORDERABLES Performing Organization Address City/[facility]/ZIP [facility] [place] [address] (ABNORMAL) Hemogram (12/02/2020 6:00 PM EDT) P athologist Signature WBC 9.9 (H) 4.0 - 9.5 [facility] x10(3)/[facility] LABORATORY RBC 4.80 4.58 - [facility] KYLE 5.54 [facility] x10(6)/[facility] LABORATORY Hemoglobin 14.4 13.7 - [facility]dL [facility] Hematocrit 41.0 40.5 - [facility] KYLE 48.5 % [facility] MCV 85.4 82.9 - [facility] 93[facility]1 [facility] LABOR[facility]ORY MCH 30.0 27.5 - [facility] pg [facility] MCHC 35.1 32.0 - [facility] 35.[facility] gm/dL [facility] Platelets 203 145 - 357 [facility] x10(3)/[facility] LABORATORY RDWSD 41.1 36.0 - [facility] 45.0 [facility] LABORATORY RDWCV 13.2 11.4 - [facility] KYLE 13.8 % [facility] MPV 9.4 7.6 - 12.9 [facility] LABORATORY nRBC % Auto 0.0 % [facility] nRBC Abs Auto 0.000 0.000 - [facility] 0.000 [facility] x10(3)/[facility] LABORATORY Specimen Anatomical Collection Method Collection Time Receive d Time (Source) Location / / Volume Laterality Blood specimen 12/02/2020 6:00 PM 021 6:35 (specimen) EDT PM EDT Resulting Agency Comment Spec In Lab Melonie Tejada APRN HEMATOLOGY ORDERABLES Performing Organization Address City/State/[place] [address] (ABNORMAL) Vitamin D, 25-Hydroxy (12/02/2020 6:00 PM EDT) Patholo gist Method Time Signature 25-OH Vit D 18 (L) 21 - 100 [facility] Total ng/mL [facility] 25-OH Vit D [facility] LABORATORY Specimen Anatomical Collection Method Collection Time Receive d Time (Source) Location / / Volume Laterality Blood specimen 12/02/2020 6:00 PM 021 6:35 (specimen) EDT PM EDT Resulting Agency Comment Spec In Lab Melonie Tejada APRN CHEMISTRY ORDERABLES Performing Organization Address City/State/ZIP Code Phon e Number [address] Comprehensive metabolic panel (non-fasting) (12/02/2020 6:00 PM EDT) P athologist Signature Glucose Lvl 116 65 - 199 [facility] mg/dL [facility] Comment: Diabetes: >=200 mg/dL plus symp toms BUN 18 10 - 20 mg/dL [facility] Creatinine 0.87 0.80 - 1.50 mg/dL [facility] Sodium 142 135 - 145 mmol/L [facility] Potassium 4.2 3.5 - 5.0 mmol/L [facility] Comment: Please note: ??Patients with WBC >100,00 0 may have falsely elevated Potassium levels. ??For accurate Potassium quantif ication in these patients send serum separator tube (gold top) for subsequent determinations. ??Contact the Clinical Chemistry Laboratory if there are any qu estions. Chloride 107 98 - 107 mmol/L [facility] CO2 24 22 - 31 mmol/L [facility] Anion Gap 11 5 - 15 mmol/L [facility] Calcium 9.2 8.5 - 10.5 mg/dL [facility] Total Protein 6.6 6.1 - 8.0 gm/dL [facility] Albumin 4.5 3.2 - 5.2 gm/dL [facility] AST 9 0 - 39 unit/L [facility] ALT 9 0 - 55 unit/L [facility] Alk Phos 63 40 - 130 unit/L [facility] Total Bilirubin 0.2 0.2 - 1.3 mg/dL [facility] Estimated GFR 106 >=60 mL/min/1.73 m?? [facility] Comment: This patient? s estimated glomerular filtration rate (eGFR) is between 106 mL/min/1.73 m2 (patients with less muscl e mass per kg body weight) and 123 mL/min/1.73 m2 (patients with more muscl e mass per kg body weight) as determined by the CKD-EPI equation. Asse ssment of eGFR is not appropriate when creatinine concentrations are rapidly ch anging. For clinical decisions where creatinine clearance will affect therapy , a 24-hour urine creatinine clearance may be advised. Assignment of CKD stage 1 - 5 for patien ts with an eGFR near the transition point between stages may be based on cli nical assessment of muscle mass and symptoms in addition to eGFR. Specimen Anatomical Collection Method Collection Time Receive d Time (Source) Location / / Volume Laterality Blood specimen 12/02/2020 6:00 PM 021 6:35 (specimen) EDT PM EDT Resulting Agency Comment Spec In Lab Melonie Tejada APRN CHEMISTRY ORDERABLES Performing Organization Address City/State/[place] [address] (ABNORMAL) Ammonia (12/02/2020 6:00 PM EDT) P athologist Signature Ammonia 113 (H) 16 - 60 [facility] mcmol/L [facility] Comment: Collection date/time has been modified t o: 18:00:00. ??Previous collection date/time: 18:06:00 . Corrected from 113 mcmol/L [HI] on 12/02 18:36:12 EDT by Cleo Gonzalez Specimen Anatomical Collection Method Collection Time Receive d Time (Source) Location / / Volume Laterality Blood specimen 12/02/2020 6:00 PM 021 6:06 (specimen) EDT PM EDT Resulting Agency Comment Spec In Lab Melonie Tejada APRN CHEMISTRY ORDERABLES Performing Organization Address City/[facility]/ZIP Code Phon e Number [address] Valproic Acid Level, Total (12/02/2020 6:00 PM EDT) P athologist Signature Valproic Lvl 84 mg/L [facility] Comment: Therapeutic Range: Anticonvulsant Therapy: ??50-100 mg/L Manic Episodes Associated with Bipolar D isorder: ??50-125 mg/L Specimen Anatomical Collection Method Collection Time Receive d Time (Source) Location / / Volume Laterality Blood specimen 12/02/2020 6:00 PM 021 6:35 (specimen) EDT PM EDT Resulting Agency Comment Spec In Lab Melonie Tejada APRN CHEMISTRY ORDERABLES Performing Organization Address City/[facility] Phon e Number [address] (ABNORMAL) Protein Electrophoresis, serum (12/02/2020 6:00 PM EDT) Patholo gist Method Time Signature Total Prot 6.4 6.1 - 8.0 [facility] Elec gm/dL [facility] Albumin Elect 4.63 3.60 - 6.00 [place] gm/dL [facility] Alpha1-Globul 0.15 0.10 - 0.30 [facility] in gm/dL [facility] Alpha2-Globul 0.56 0.40 - 0.90 [place] in gm/dL [facility] Beta Globulin 0.63 0.50 - 1.00 [facility] gm/dL [facility] Gamma 0.44 (L) 0.50 - 1.30 [facility] Globulin gm/dL [facility] M1 Band Comments None [facility] Below Detected 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 Immunofixation (RUMA) and quantitative immunoglobulin (G AM) testing will be performed on this sample. Specimen Anatomical Collection Method Collection Time Receive d Time (Source) Location / / Volume Laterality Blood specimen 12/02/2020 6:00 PM 021 6:35 (specimen) EDT PM EDT Narrative This result has an attachment that is no t available. Resulting Agency Comment Spec In Lab Melonie Tejada APRN CHEMISTRY ORDERABLES Performing Organization Address City/State/ZIP Code Phon e Number [address] TSH Thayer (12/02/2020 6:00 PM EDT) athologist Signature TSH 1.02 0.27 - 4.20 [facility] m[facility]/mL [facility] Specimen Anatomical Collection Method Collection Time Receive d Time (Source) Location / / Volume Laterality Blood specimen 12/02/2020 6:00 PM 021 6:35 (specimen) EDT PM EDT Resulting Agency Comment Spec In Lab Melonie Tejada APRN CHEMISTRY ORDERABLES Performing Organization Address City/[facility]/ZIP Code Phon e Number [address] Vitamin B12 (12/02/2020 6:00 PM EDT) P athologist Signature Vitamin B-12 705 232 - 1,245 [facility] Specimen Anatomical Collection Method Collection Time Receive d Time (Source) Location / / Volume Laterality Blood specimen 12/02/2020 6:00 PM 021 6:35 (specimen) EDT PM EDT Resulting Agency Comment Spec In Lab Melonie Tejada APRN CHEMISTRY ORDERABLES Performing Organization Address City/[facility]/ZIP Code Phon e Number [address] Methylmalonic acid, serum (12/02/2020 6:00 PM EDT) [facility] gist Method Time Signature Methylmalonic Acid 0.11 <=0.40 [facility] OCK nmol/mL [facility] Comment: ADDITIONAL INFORMATIO N This test was developed and its performa nce characteristics determined by [facility] in a manner co nsistent with CLIA requirements. This test has not been jeremy ared or approved by the U.S. Food and Drug Administration. Test Performed by: [facility] - [address] [address] Carbonator: Willam Byers M.D. Ph. D.; CLIA# [id number] Specimen Anatomical Collection Method Collection Time Receive d Time (Source) Location / / Volume Laterality Blood specimen 12/02/2020 6:00 PM 021 (specimen) EDT 10:04 AM EDT Resulting Agency Comment Spec In Lab Melonie Tejada APRN CHEMISTRY ORDERABLES Performing Organization Address City/State/[place] [address] COVID-19 PCR (12/02/2020 5:25 PM EDT) [facility] Method Time Signature SARS-CoV-2 Not Detected Not Detected [facility] RNA PCR [facility] Comment: This result should be interpreted in com bination with the clinical observations, patient history and epidem iological information. For testing of asymptomatic individuals, assay performa nce characteristics and clinical utility have not been evaluated. Testing for SARS-CoV-2 (Severe acute respiratory syndrome coronavirus 2, form erly known as 2019 novel coronavirus or 2019-nCoV) to aid in the diagnosis of CO VID-19 is performed using the Simplexa COVID-19 Direct Assay by [employer] as authorized by the FDA issued Emergency Use Authorization (EUA). This assay is intended for In-vitro Diagnostic (IVD) use with nasopharyngeal swabs collected from individuals meeting the CDC criteria for testing. Th e assay is performed based on the instructions for use and additional guid ance provided by the FDA. Testing is performed in the Microbiology Laboratory within the Department of Pathology and Laboratory Medicine at [facility], certified under the Clinical Laboratory Improvement Amendmen ts of 1988 (CLIA), 42 U.S.C. section 263a, to perform high complexity tests. Assay performance has been verified according to clinical laboratory regulat ory requirements. Test results are provided above. A resul t of Not Detected indicates that the viral RNA target is not present but does not preclude SARS-CoV-2 infection. False negative results may occur if a sp ecimen is improperly collected, transported or handled; if amplification inhibitors are present; or if inadequate numbers of viral particles ar e present in the specimen. A result of Detected suggests a current or recent infection and the patient is presumed to be infected. Positive and negative pr edictive values for this test are highly dependent on disease prevalence. A result of Invalid indicates the inability to conclusively determine the presence or absence of SARS-CoV-2 RNA in the sample which can be due to a vari ety of factors. Recollection is recommended in the case of an invalid re sult. CDC COVID-19 criteria for testing on hum an specimens and clinical management guidance information are available at [facility] CDC Coronavirus Disease 2019 (COVID-19) webpage under Information fo r Healthcare Professionals (https://www.cdc.gov/coronavirus/2019-nc ov/hcp/index.html). Additional information about this and ot her EUA tests can be found in provider and patient fact sheets at the following FDA website: https://www.fda.gov/medical-devices/culfjfnwrdq-sfaqoht-8072-kfzwt-40-lscwfdkfa- ipz-hiznzjoudhpeur-nysssxz-devices/revbr-betszwbyonf-vdxj SARS-CoV-2 Source MECHANICAL SYSTEMS ENGINEER Swab [facility] Specimen (Source) Anatomical Collection Method Collection Time Re ceived Time Location / / Volume Laterality Nasopharyngeal swab 12/02/2020 5:25 12/02 (specimen) PM EDT 6:59 PM EDT Comment: Symptoms->Surveillance Resulting Agency Comment Spec In Lab Melonie Tejada CONTACT CENTER ENGINEER MICROBIOLOGY - GENERAL ORDER ROSE Performing Organization Address City/State/[place] [address] EKG 12 Lead (12/02/2020 4:23 PM EDT) Patholo gist Method Time Signature Ventricular rate 87 BPM MUSE SYSTEM Atrial Rate 87 BPM MUSE SYSTEM P-R Interval 158 ms MUSE SYSTEM QRS Duration 100 ms MUSE SYSTEM Q-T Interval 360 ms MUSE SYSTEM QTC Calculated 433 ms MUSE SYSTEM (Bezet) Calculated P [place] 54 degrees MUSE SYSTEM Calculated R [place] 70 degrees MUSE SYSTEM Calculated T [place] -10 degrees MUSE SYSTEM INTERPRETATION Normal sinus rhythm MUSE SYSTEM ST & T wave abnormality, consider inferior ischemia Abnormal ECG When compared with ECG of 06-JUN-2020 21:47, Non-specific change in ST segment in Inferior leads T wave inversion now evident in Inferior leads Confirmed by MD RYAN SALVATORE ([id number]) on 12/03/2020 9:08:03 AM Specimen Anatomical Collection Method Collection Time Receive d Time (Source) Location / / Volume Laterality 12/02/2020 4:23 PM 9:08 EDT AM EDT Melonie Rizzonikkokamran CONTACT CENTER ENGINEER ECG ORDERABLES Performing Organization Address City/State/ZIP Code Phon e Number MUSE SYSTEM documented in this encounter Visit Diagnoses Diagnosis Seizures Other convulsions Tobacco abuse Tobacco use disorder documented in this encounter Admitting Diagnoses Diagnosis Seizures Other convulsions documented in this encounter Administered Medications Inactive Administered Medications - up to 3 most recent administrations Medication Order MAR Action Action Date Dose Rate Site acetaminophen (Tylenol) tablet Given 12/08/2020 10:44 AM EDT 650 mg 650 mg 650 mg, Oral, EVERY 6 HOURS PRN, Starting on Asiya 12/02/20 at 2117, Until 12/08/20 at 1503, Pain, Maximum dose of acetaminophen is 4000 mg from all sources in 24 hours. When ordered for pain, acetaminophen should be given even when other ordered pain medications are indicated. , Routine Given 12/07/2020 8:29 AM EDT 650 mg Given 12/06/2020 5:37 PM EDT 650 mg celecoxib (CeleBREX) capsule 100 mg Given 12/08/2020 8:41 AM EDT 100 mg 100 mg, Oral, DAILY, First dose (after last modification) on Asiya 12/02/20 at 1815, Until Discontinued, Routine Given 12/07/2020 8:27 AM EDT 100 mg Given 12/06/2020 8:05 AM EDT 100 mg chlorproMAZINE (Thorazine) tablet 150 mg Given 12/08/2020 8:40 AM EDT 150 mg 150 mg, Oral, DAILY, First dose on Sun12/03/20 at 0900, Until Discontinued, Routine Given 12/07/2020 8:28 AM EDT 150 mg Given 12/06/2020 8:06 AM EDT 150 mg chlorproMAZINE (Thorazine) tablet 200 mg Given 12/07/2020 10:00 PM EDT 200 mg 200 mg, Oral, NIGHTLY, First dose on Sun12/02/20 at 2100, Until Discontinued, Routine Given 12/06/2020 9:58 PM EDT 200 mg Given 12/05/2020 9:54 PM EDT 200 mg clonazePAM (KlonoPIN) tablet 1 mg 1 mg, Oral, 2 TIMES DAILY PRN, Starting on Sun12/07/20 at 1545, Until Sun12/08/20 at 1503, Anxiety, DO NOT SPLIT, CRUSH OR OPEN, Rou meron diazePAM (Diastat) 12.5-15-17.5-20 mg re ctal gel Kit 15 mg 15 mg, Rectal, ONCE PRN, 1 dose, Startin g on Sun12/02/20 at 1627, Until Sun12/08/20 at 1503, Seizures, If no IV access, give 15mg NC any g eneralized tonic clonic seizure with convulsions lasting longer than 5 minutes . (Then page for post administration assessment, re-page if no reply after 5 minutes), Routine dilTIAZem CD (Cardizem CD) capsule 240 m g Given 12/07/2020 9:59 PM EDT 240 mg 240 mg, Oral, NIGHTLY, First dose on Sun12/02/20 at 2100, Until Discontinued, Routine Given 12/06/2020 9:59 PM EDT 240 mg Given 12/05/2020 9:54 PM EDT 240 mg divalproex EC (Depakote) tablet 1,000 mg Given 12/02/2020 9:06 PM EDT 1,000 mg 1,000 mg, Oral, 2 TIMES DAILY, First dose on Sun12/02/20 at 2100, Until Discontinued divalproex EC (Depakote) tablet 750 mg Given 12/08/2020 8:39 AM EDT 750 mg 750 mg, Oral, 2 TIMES DAILY, First dose on Sun12/07/20 at 1015, Until Discontinued, DO NOT SPLIT, CRUSH OR OPEN, Routine Given 12/07/2020 9:58 PM EDT 750 mg Given 12/07/2020 10:37 AM EDT 750 mg docusate sodium (Colace) capsule 100 mg Given 12/07/2020 8:28 AM EDT 100 mg 100 mg, Oral, 2 TIMES DAILY, First dose on Sun12/02/20 at 2100, Until Discontinued, Routine Given 12/06/2020 9:58 PM EDT 100 mg Given 12/06/2020 8:04 AM EDT 100 mg enoxaparin (Lovenox) (40 mg/0.4 mL) Given 12/06/2020 10:00 PM ED T 40 mg subcutaneous injection 40 mg 40 mg, Subcutaneous, NIGHTLY, First dose on Sun12/02/20 at 2100, Until Discontinued, Routine Given 12/05/2020 9:55 PM EDT 40 mg Given 12/04/2020 9:15 PM EDT 40 mg ergocalciferoL (vitamin D2) (vitamin Given 12/03/2020 1:38 PM ED T 50,000 Units D2) capsule 50,000 Units 50,000 Units, Oral, WEEKLY, First dose on Sun12/03/20 at 1330, Until Discontinued, Routine fluvoxaMINE (Luvox) tablet 100 mg Given 12/08/2020 8:40 AM EDT 100 mg 100 mg, Oral, 2 TIMES DAILY, First dose on Sun12/02/20 at 2100, Until Discontinued, Routine Given 12/07/2020 9:59 PM EDT 100 mg Given 12/07/2020 8:27 AM EDT 100 mg hydrOXYzine (Atarax) tablet 25 mg Given 12/07/2020 9:48 AM EDT 25 mg 25 mg, Oral, 3 TIMES DAILY PRN, Starting on Sun12/02/20 at 1627, Until Sun12/08/20 at 1503, Anxiety, Routine Given 12/06/2020 10:03 AM EDT 25 mg Given 12/06/2020 1:40 AM EDT 25 mg levOCARNitine (Carnitor) (100 mg/mL) oral Given 12/08/2020 8 :40 AM EDT 1,000 mg liquid 1,000 mg 1,000 mg, Oral, 3 TIMES DAILY, First dose on Sun12/03/20 at 1500, Until Discontinued, Routine Given 12/07/2020 11:44 PM EDT 1,000 mg Given 12/07/2020 4:06 PM EDT 1,000 mg lisdexamfetamine (Vyvanse) capsule 70 mg Given 12/08/2020 7:52 AM EDT 70 mg 70 mg, Oral, EVERY MORNING, First dose on Sun12/03/20 at 0700, Until Discontinued, Routine Given 12/07/2020 7:19 AM EDT 70 mg Given 12/06/2020 8:04 AM EDT 70 mg LORazepam (Ativan) (2 mg/mL) injection 2 mg 2 mg, Intravenous, ONCE PRN, 1 dose, Starting on Sun at 1627, Until Sun12/08/20 at 1503, Seizures, give 2mg IV once after 1 ge neralized tonic clonic seizures or 3 complex partial seizures i n 24 hours, or any seizure lasting longer than 5 minutes, push over 1 minute. (Then page for post administration assessment, re-page if no reply after 5 minutes), Rout abad nicotine (NICODERM CQ) Patch Applied 12/08/2020 8:39 AM 21 mg 03- Shoulder 21 mg/24 hr patch 21 mg EDT (Left) 21 mg (1 patch), Transdermal, DAILY, First dose on Sun12/02/20 at 1715, Until Discontinued, Apply new patch to nonhairy, clean, dry skin on the upper body or upper outer arm; each patch should be applied to a different site , Routine Patch Applied 12/07/2020 8:30 AM EDT 21 mg 10- Arm Upper (Right) Patch Applied 12/06/2020 8:04 AM EDT 21 mg 03- Shoulder (Left) nicotine (NICODERM CQ) 21 mg/24 hr patch Patch Removal Transdermal, DAILY, First dose on Sun at 0900, Until Discontinued, Remove nicotine 21 mg/24 hr patch nicotine polacrilex (COMMIT) lozenge 2 m g Given 12/06/2020 3:16 PM EDT 2 mg 2 mg, Buccal, EVERY 1 HOUR PRN, Starting on Sun12/02/20 at 1627, Until Sun12/08/20 at 1503, Smoking cessation, Maximum 20 Lozenges per day. If multiple PRN medications for smoking cessation, may give gum concomitant with lozenge., Routine Given 12/06/2020 8:06 AM EDT 2 mg Given 12/04/2020 5:35 PM EDT 2 mg Patch Verification Transdermal, 2 TIMES DAILY, First dose o n Sun12/02/20 at 2100, Until Discontinued, Verify nicotine 21 mg/24 hr patch polyethylene glycoL (Miralax) packet 17 g Given 12/05/2020 8:10 AM EDT 17 g 17 g, Oral, 2 TIMES DAILY, First dose on Sun12/03/20 at 1200, Until Discontinued, HOLD for loose stools, Routine Given 12/04/2020 9:03 AM EDT 17 g Given 12/03/2020 9:32 PM EDT 17 g sodium chloride 0.9 % (flush) flush 5 mL Given 12/08/2020 8:43 AM EDT 5 mLs 5 mL, Intravenous, 2 TIMES DAILY, First dose on Sun12/02/20 at 2100, Until Discontinued, Routine Given 12/07/2020 10:02 PM EDT 5 mLs Given 12/07/2020 8:32 AM EDT 5 mLs sucralfate (Carafate) tablet 1 g Given 12/08/2020 10:44 AM EDT 1 g 1 g, Oral, 3 TIMES DAILY BEFORE MEALS, First dose on Sun12/02/20 at 1715, Until Discontinued, Routine Given 12/08/2020 7:52 AM EDT 1 g Given 12/07/2020 4:06 PM EDT 1 g traZODone (Desyrel) tablet 200 mg Given 12/07/2020 9:59 PM EDT 200 mg 200 mg, Oral, NIGHTLY, First dose on Sun12/02/20 at 2100, Until Discontinued, Routine Given 12/06/2020 9:59 PM EDT 200 mg Given 12/06/2020 1:40 AM EDT 200 mg documented in this encounter Active and Recently Administered Medications Times are shown in EDT. Scheduled Medication Order 12/06/2020 12/07/2020 12/08/2020 celecoxib (CeleBREX) capsule 100 mg 0805 (Given - Prov ider: Clarita Rolon RN) 0827 (Given - Provider: Anastasia Morales LPN) 0841 (Giv en - Provider: Sara Hernandez RN) 100 mg, Oral, DAILY, First dose (after l ast modification) on Sun12/02/20 at 1815, Until Discontinued, Routine chlorproMAZINE (Thorazine) tablet 150 mg 08 (Given - Provider: Clarita Rolon RN) 0828 (Given - Provider: Anastasia Morales LPN) 0840 (Giv en - Provider: Sara Hernandez RN) 150 mg, Oral, DAILY, First dose on Sun at 0900, Until Discontinued, Routine chlorproMAZINE (Thorazine) tablet 200 mg 2157 (Given - Provider: Martin Roberts RN) 2199 (Given - Provider: Martin Roberts RN) 200 mg, Oral, NIGHTLY, First dose on Sun12/02/20 at 2100, Until Discontinued, Routine dilTIAZem CD (Cardizem CD) capsule 240 mg 2158 (Given - Provider: Martin Roberts RN) 2158 (Given - Provider: Martin Roberts RN) 240 mg, Oral, NIGHTLY, First dose on Sun12/02/20 at 2100, Until Discontinued, Routine divalproex EC (Depakote) tablet 750 mg 1 037 (Given - Provider: Anastasia Morales LPN)2157 (Given - Provider: Martin Roberts RN) 0839 (Given - Provider: Sara Hernandez RN) 750 mg, Oral, 2 TIMES DAILY, First dose on Sun12/07/20 at 1015, Until Discontinued, DO NOT SPLIT, CRUSH OR OPEN, Routine docusate sodium (Colace) capsule 100 mg 0804 (Given - Provider: Clarita Rolon RN)215 (Given - Provider: Martin Roberts RN) 0828 (Given - Provider: Anastasia Morales LPN)2100 (Not Given - Provider: Martin Roberts RN - Reason: Contraindicated) 0900 (Not Given - Provider: Sara Pickett od, RN - Reason: Patient/family refused) 100 mg, Oral, 2 TIMES DAILY, First dose on Sun12/02/20 at 2100, Until Discontinued, Routine enoxaparin (Lovenox) (40 mg/0.4 mL) subcutaneous injec tion 40 mg 2200 (Given - Provider: Martin Roberts RN) 2100 (Not Given - Provider: Martin osuna RN - Reason: Patient/family refused) 40 mg, Subcutaneous, NIGHTLY, First dose on Sun12/02/20 at 2100, Until Discontinued, Routine ergocalciferoL (vitamin D2) (vitamin D2) capsule 50,000 Units 50,000 Units, Oral, WEEKLY, First dose o n Sun12/03/20 at 1330, Until Discontinued, Routine fluvoxaMINE (Luvox) tablet 100 mg 0805 (Given - Provid er: Clarita Rolon RN)2157 (Given - Provider: Martin Roberts RN) 0827 (Given - Provider: Anastasia Morales LPN)215 (Given - Provider: Martin Roberts RN) 0840 (Given - Provider: Sara Hernandez RN) 100 mg, Oral, 2 TIMES DAILY, First dose on Sun12/02/20 at 2100, Until Discontinued, Routine levOCARNitine (Carnitor) (100 mg/mL) oral liquid 1,000 mg 0806 (Given - Provider: Clarita Rolno RN)1737 (Given - Provider: Clarita Rolon RN)2100 (Not Given - Provider: Martin Roberts RN - Reason: Contraindicated - Comment: missing dose. it 0830 (Given - Provider: Anastasia Morales LPN)1606 (Given - Provider: Anastasia Morales LPN)2344 (Given - Provider: Martin Roberts RN - Comment: missing dose) 0840 (Given - Provider: Sara Hernandez RN) 1,000 mg, Oral, 3 TIMES DAILY, First dos e on Sun12/03/20 at 1500, Until Discontinued, Routine has been a while and still no dose. spo ke to Dr. Andino and he was okay with his missing a dose.) lisdexamfetamine (Vyvanse) capsule 70 mg 0804 (Given - Provider: Clarita Rolon RN) 0719 (Given - Provider: Anastasia Morales LPN) 0752 (Giv en - Provider: Sara Hernandez RN) 70 mg, Oral, EVERY MORNING, First dose o n Sun12/03/20 at 0700, Until Discontinued, Routine nicotine (NICODERM CQ) 21 mg/24 hr patch 21 mg(Linked Group 1) 0804 (Patch Applied - Provider: Clarita Rolon RN) 0830 (Patch Applied - Provider: Anastasia Morales LPN) 0839 (Patch Applied - Provider: Sara Hernandez RN) 21 mg (1 patch), Transdermal, DAILY, Fir st dose on Sun12/02/20 at 1715, Until Discontinued, Apply new patch to nonhairy, clean, dry skin on the upper body or upper outer arm; each patch should be applied to a different site , Routine nicotine (NICODERM CQ) 21 mg/24 hr patch Patch Removal (Linked Group 1) 09 (Patch Removed - Provider: Clarita Rolon RN) 09 (Patch Removed - Provider: Anastasia Morales LPN) 09 (Patch Removed - Provider: Sara Hernandez RN) Transdermal, DAILY, First dose on Sun at 0900, Until Discontinued, Remove nicotine 21 mg/24 hr patch Patch Verification(Linked Group 1) 09 (Patch (dose a nd location) verified - Provider: Clarita Rolon RN)2099 (Patch (dose and location) verified - Provider: Martin Roberts RN) 09 (Patch (dose and location) verified - Provider: Anastasia Morales LPN)2100 (Patch (dose and location) verified - Provider: Martin Roberts RN) 09 (Patch (dose and location) verified - Provider: Sara Hernandez RN) Transdermal, 2 TIMES DAILY, First dose o n Sun12/02/20 at 2100, Until Discontinued, Verify nicotine 21 mg/24 hr patch polyethylene glycoL (Miralax) packet 17 g 0900 (Not Gi zaid - Provider: Clarita Rolon RN - Reason: Patient/family refused)2099 (Not Given - Provider: Martin Roberts RN - Reason: Patient/family refused) 0900 (Not Given - Provider: Anastasia Morales LPN - Reason: Patient/family refused)2100 (Not Given - Provider: Martin Roberts RN - Reason: Patient/family refused) 0900 (Not Given - Provider: Sara Hernandez RN - Reason: Patient/family refused) 17 g, Oral, 2 TIMES DAILY, First dose on Sun12/03/20 at 1200, Until Discontinued, HOLD for loose stools, Routine sodium chloride 0.9 % (flush) flush 5 mL 0807 (Given - Provider: Clarita Rolon RN)2159 (Given - Provider: Martin Roberts RN) 0832 (Given - Provider: Anastasia Morales LPN)2202 (Given - Provider: Martin Roberts RN) 0843 (Given - Provider: Sara Hernandez RN) 5 mL, Intravenous, 2 TIMES DAILY, First dose on Sun12/02/20 at 2100, Until Discontinued, Routine sucralfate (Carafate) tablet 1 g 0740 (Given - Provide r: Clarita Rolon RN)1205 (Given - Provider: Clarita Rolon RN)1644 (Given - Provider: Clarita Rolon RN) 0720 (Given - Provider: Anastasia Morales LPN)1206 (Given - Provider: Anastasia Morales LPN)1606 (Given - Provider: Anastasia Morales LPN) 0752 (Given - Provider: Sara Hernandez RN)1044 (Given - Provider: Sara Hernandez RN) 1 g, Oral, 3 TIMES DAILY BEFORE MEALS, F irst dose on Sun12/02/20 at 1715, Until Discontinued, Routine traZODone (Desyrel) tablet 200 mg 0140 (Given - Provid er: Martin Roberts RN)2158 (Given - Provider: Martin Roberts RN) 2158 (Given - Provider: Martin Roberts RN) 200 mg, Oral, NIGHTLY, First dose on Sun12/02/20 at 2100, Until Discontinued, Routine PRN Medication Order 12/06/2020 12/07/2020 12/08/2020 acetaminophen (Tylenol) tablet 650 mg 0741 (Given - Pr ovider: Clarita Rolon RN)1737 (Given - Provider: Clarita Rolon RN) 0829 (Given - Provider: Anastasia Morales LPN) 1044 (Given - Provider: Sara Hernandez RN) 650 mg, Oral, EVERY 6 HOURS PRN, Startin g Sun12/02/20 at 2117, Until Sun12/08/20 at 1503, Pain, Maximum dose of acetaminophen is 4000 mg from all sources in 24 hours. When ordered for pain, acetaminophe n should be given even when other ordere d pain medications are indicated. , Routine clonazePAM (KlonoPIN) tablet 1 mg 1 mg, Oral, 2 TIMES DAILY PRN, Starting Sun12/07/20 at 1545, Until Sun12/08/20 at 1503, Anxiety, DO NOT SPLIT, CRUSH OR OPEN, Routine diazePAM (Diastat) 12.5-15-17.5-20 mg rectal gel Kit 15 mg(Linke d Group 2) 15 mg, Rectal, ONCE PRN, 1 dose, Startin sun12/02/20 at 1627, Until Sun12/08/20 at 1503, Seizures, If no IV access, give 15mg NC any generalized tonic clonic seizure with convulsions lasting longer danyell n 5 minutes. (Then page MD for post admi nistration assessment, re-page if no reply after 5 minutes), Routine hydrOXYzine (Atarax) tablet 25 mg 0140 (Given - Provid er: Martin Roberts RN)1003 (Given - Provider: Clarita Rolon RN) 0948 (Given - Provider: Anastasia Morales LPN - Comment: Patient reports increasing anxiety) 25 mg, Oral, 3 TIMES DAILY PRN, Starting Sun12/02/20 at 1627, Until Sun12/08/20 at 1503, Anxiety, Routine lidocaine (Lidoderm) 5% topical patch 1 patch 1 patch, Transdermal, DAILY PRN, Startin g Sun12/02/20 at 1627, Until Sun12/08/20 at 1503, Pain, Apply patch(es) for 12 hours, and then remove for 12 hours., Routine lidocaine (Xylocaine) 1% (10 mg/mL) injection 3 mg 3 mg (0.3 mL), Subcutaneous, ONCE PRN, 1 dose, Starting Sun12/02/20 at 1627, Until Sun12/08/20 at 1503, for discomfort with PIV insertion, Routine LORazepam (Ativan) (2 mg/mL) injection 2 mg(Linked Group 2) 2 mg, Intravenous, ONCE PRN, 1 dose, Sta rting Sun12/02/20 at 1627, Until Sun12/08/20 at 1503, Seizures, give 2mg IV once after 1 generalized tonic clonic seizures or 3 complex partial seizures in 24 katy rs, or any seizure lasting longer than 5 minutes, push over 1 minute. (Then page MD for post administration assessment, re-page if no reply after 5 minutes), Routine nicotine polacrilex (COMMIT) lozenge 2 mg 0806 (Given - Provider: Clarita Rolon, RN)1516 (Given - Provider: Clarita Rolon, JAYSON) 2 mg, Buccal, EVERY 1 HOUR PRN, Starting Sun12/02/20 at 1627, Until Sun12/08/20 at 1503, Smoking cessation, Maximum 20 Lozenges per day. If multiple PRN medications for smoking cessation, may give gum concomitant with lozenge., Routine sodium chloride 0.9 % (flush) flush 5-20 mL 5-20 mL, Intravenous, EVERY 1 MIN PRN, S tarting Sun12/02/20 at 1627, Until Sun12/08/20 at 1503, flush, Flush pertains to all indwelling lines. Flush per protocol found in the job aid using the link provided on this medication record., Routine Linked Groups Order Group 1: nicotine (NICODERM CQ) 21 mg/24 hr patch 21 mgJump to med 21 mg (1 patch), Transdermal, DAILY, Fir st dose on Sun12/02/20 at 1715, Until Discontinued
Apply new patch to nonhairy, clean, dry skin on the upper body or upper outer arm; each patch should be applied to a different site
Routine And Patch VerificationJump to med Transdermal, 2 TIMES DAILY, First dose o n Sun12/02/20 at 2100, Until Discontinued
Verify nicotine 21 mg/24 hr patch
And nicotine (NICODERM CQ) 21 mg/24 hr patch Patch RemovalJump to med Transdermal, DAILY, First dose on Sun at 0900, Until Discontinued
Remove nicotine 21 mg/24 hr patch
Group 2: LORazepam (Ativan) (2 mg/mL) injection 2 mgJump to med 2 mg, Intravenous, ONCE PRN, 1 dose, Sta rting Asiya 12/02/20 at 1627, Until Sun12/08/20 at 1503, Seizures
give 2mg IV once after 1 generalized tonic clonic seizures or 3 complex partial seizures i n 24 hours, or any seizure lasting longe r than 5 minutes, push over 1 minute. (Then tiny CHRIS for post administration assessment, re-page if no reply after 5 minutes)
Routine Or diazePAM (Diastat) 12.5-15-17.5-20 mg rectal gel Kit 15 mgJump to med 15 mg, Rectal, ONCE PRN, 1 dose, Startin g Sun12/02/20 at 1627, Until Sun12/08/20 at 1503, Seizures
If no IV access, give 15mg NC any generalized tonic clonic seizure with convulsions lasting lo nger than 5 minutes. (Then rupinder gonzalez MD for post administration assessment, re-page if no reply after 5 minutes)
Routine documented in this encounter Care Teams First Aid Teacher Relationship Specialty Start Date End Date Brissa Stout APRN PCP - General Family Medicine 05/26/20 [address] [place] [address] documented as of this encounter
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
--- OUTSIDE RECORDS SUMMARY | 2022-04-14 23:23 | XMS_ITS | Encounter Summary ---
:1980 [place] [address] Care Team Providers Name Role Phone Brissa Stout APRN Primary Care Provider Encounter Details Date Type Department Care Team Description 05/25/2020 External Results Transfer Center Francoise Gaxiola PA [facility] [place] [address] Cardiology Dept [phone] [place], [place] [address] (Wo rk) Social History Tobacco Use Types Packs/Day Years Used Date Current Every Day Smoker Cigarettes 1.5 Smokeless Tobacco: Former User Alcohol Use Standard Drinks/Week Comments Yes 7 (1 standard drink = 0.6 oz pure alcoho l) Sex Assigned at Date Recorded Not on file documented as of this encounter Plan of Treatment Not on filedocumented as of this encounter Procedures Procedure Name Priority Date/Time Associated Diagnosis Comme nts ECG SCAN Routine 05/25/2020 Results for thi s procedure are in the resu lts section. documented in this encounter Results Scan Doc: ECG (05/25/2020) Narrative This result has an attachment that is no t available. Francoise [place] [facility] MGR SCAN EXT ORDR/RSLT documented in this encounter Visit Diagnoses Not on filedocumented in this encounter Care Teams Rubber Cutter And Shape Carver Relationship Specialty Start Date End Date Brissa Stout APRN PCP - General Family Medicine 05/26/20 [address] [place] [address] documented as of this encounter
--- OUTSIDE RECORDS SUMMARY | 2022-04-14 23:23 | XMS_ITS | Encounter Summary ---
:1980 Author Organization [place] [address] Care Team Providers Name Role Phone Brissa Stout APRN Primary Care Provider Reason for Visit Reason Onset Date Comments Follow-up 01/14/2021 Tobacco Treatment Encounter Details Date Type Department Care Team Description 01/14/2021 Telephone Tobacco Treatment at [facility] (Tob[facility], RN Treatment) [place] [phone] Social History Tobacco Use Types Packs/Day Years Used Date Current Every Day Smoker Cigarettes 1.5 Smokeless Tobacco: Former User Alcohol Use Standard Drinks/Week Comments Yes 7 (1 standard drink = 0.6 oz pure alcoho l) Sex Assigned at Date Recorded Not on file documented as of this encounter Miscellaneous Notes Telephone Encounter - Franky Moore RN - 01/14/2021 2:52 PM EDT DATE: 01/14/2021 NAME: Max James : 1980 Reason for Call: 1-month follow-up for Tobacco Treatment [facility] Franky Moore, MSN, RN-, NCTTP [facility] Pager #[phone] documented in this encounter Plan of Treatment Not on filedocumented as of this encounter Visit Diagnoses Not on filedocumented in this encounter Care Teams Networks Software Consultant Relationship Specialty Start Date End Date Brissa Stout APRN PCP - General Family Medicine 05/26/20 [address] [place] [address] documented as of this encounter
--- OUTSIDE RECORDS SUMMARY | 2022-04-14 23:23 | XMS_ITS | Encounter Summary ---
:1980 Author Organization [facility] [place] [address] Care Team Providers Name Role Phone Brissa Stout APRN Primary Care Provider Encounter Details Date Type Department Care Team Description 05/26/2020 Hospital Encounter Mobile Clarence Aguillon MD Chest pain, Echocardiography [address] unspecified type [place], [place] [id number] [place] [address] [phone] (Work) [phone] Social History Tobacco Use Types Packs/Day Years Used Date Current Every Day Smoker Cigarettes 1.5 Smokeless Tobacco: Former User Alcohol Use Standard Drinks/Week Comments Yes 7 (1 standard drink = 0.6 oz pure alcoho l) Sex Assigned at Date Recorded Not on file documented as of this encounter Medications at Time of Discharge Medication Sig Dispensed Refills Start Date End Date hydrOXYzine (ATARAX) 25 Take 1 tablet by 90 tablet 0 2012 mg tablet mouth 3 times daily as needed for Anxiety. benztropine (COGENTIN) 1 Take 2 tablets by 60 tablet 0 08/0 09/201211/11/2020 mg tablet mouth 2 times daily. Takes with Navane thiothixene (NAVANE) 5 mg Take 15 mg by mouth 0 12/02/2020 capsule nightly. thiothixene (NAVANE) 5 mg Take 10 mg by mouth 0 12/02/2020 capsule every morning. lithium 300 mg capsule Take 600 mg by mouth 0 11/11/2020 2 times daily. Takes this every morning and qhs. Needs tonight's dose documented as of this encounter Plan of Treatment Not on filedocumented as of this encounter Procedures Procedure Name Priority Date/Time Associated Comments Diagnosis ECHOCARDIOGRAM COMPLETE Routine 05/26/2020 11:01 Chest pain, Results for this AM EDT unspecified type procedure a re in the results section. documented in this encounter Results ECHOCARDIOGRAM COMPLETE (05/26/2020 11:01 AM EDT) P athologist Signature EF 60 HEARTLAB SYSTEM Anatomical Region Laterality Modality Other Specimen (Source) Anatomical Location Collection Method / Collectio n Time Received Time / Laterality Volume 05/26/2020 Narrative 05/26/2020 11:15 AM EDT Procedure: ?Transthoracic Echocardiogram Patient: ?LORNA Byrd ?(Age): 1980(40y) Med Rec#: ? [id number] ?Sex: ?M ? Site Loc: ? [facility] [place] ??H t / Wt: ??172.72(cm)/74.8 Pt. Loc: ?BSA: ?188 Study Date: ?? 05/26/2020 ?Pt. Type: Inpatient Tape: ? Referring: Clarence Aguillon Reading: Eamon Iraheta ([id number]) Live In Companion: FLACA Diagnosis: *Chest pain, unspecified (R07.9) BP: ? 133/88 SUMMARY: 1. The left ventricular chamber size is normal. Left ventricular wall thickness is normal. There are no left v entricular segmental wall motion abnormalities. There is normal global le ft ventricular systolic function. ??Ejection fraction is estimat ed to be 60%. 2. The right ventricle is normal in size . Right ventricular global systolic function is normal. 3. There is no hemodynamically significa nt valve disease. 4. The estimated pulmonary artery systol ic pressure is 24 mmHg. 5. See remainder of report for additiona l findings. Findings ? : Left Ventricle: ? The left ventricul ar chamber size is normal. ?Left ventricular wall thickness is normal. ?There is no evidence of left ventr icular asymmetric hypertrophy. ?There is no evidence of LVOT obstr uction. ?There is normal global left ventri cular systolic function. ??Ejection fraction is estimated to be 60%. ?There are no left ventricular segm ental wall motion abnormalities. Left Atrium: ? The left atrium is no rmal in size. Right Ventricle: ? The right ventric le is normal in size. ?Right ventricular global systolic function is normal. ?The estimated pulmonary artery sys tolic pressure is 24 mmHg. ?The estimated right atrial pressur e is 3 mmHg. Right Atrium: ? The right atrium is normal in size. Aortic Valve: ? The aortic valve is trileaflet. The leaflets are thin with normal excursion. There is no aorti c stenosis or regurgitation present. Mitral Valve: ? The mitral valve cesar flets appear normal. ?There is no evidence of mitral michael nosis. ?There is trace mitral regurgitatio n present. Tricuspid Valve: ? The tricuspid nalini ve leaflets are morphologically normal. ?There is trace tricuspid regurgita tion present. Pulmonic Valve: ? The pulmonic valve appears normal in structure and function. Pericardium: ? The pericardium appea rs normal and there is no evidence of a pericardial effusion. Aorta: ? The ascending aorta is norm al in size. Pulmonary Artery: ? The main pulmona ry artery appears normal. Venous: ? The inferior vena cava stacy ears normal in size. ?There is a greater than 50% respir atory change in the inferior vena cava dimension. Misc: ? Two-dimensional echo, spectr al Doppler and color Doppler performed. Chambers 2D ?Value ?Units (Range) ? IVSd (2D) ? 0.93 ? cm ? LVPWd (2D) ?0.99 ? cm ? IVS:LVPW ratio (2D) 0.93 ? ratio ? LVIDd (2D) ?4.52 ? cm ? LVIDs (2D) ?3.22 ? cm ? LV FS (2D) ?28.7 ? % ? EF Teichholz (2D) ?? 55.39 ?% ? Ascending Ao ?2.91 ? cm (2 - 3.5) ? Volumes/Mass ?Value ?Units (Range) ? LA ESV BP (A/L) inde24.77 ? ml/m2 ? LV ESV SP 4CH (MOD) 53.83 ? ml ? LV ESV SP 2CH (MOD) 46.97 ? ml ? LV EDV BP ? 116.06 ? ml ? LV ESV BP ? 51.7 ? ml ? BP EF (MOD) ? 55.46 ?% ? Diastolic/Systolic Function ?Value ?Units (Range) ? MV E-wave Vmax ?0.72 ? m/sec ? MV deceleration ivse930.86 ? m sec ? MV A-wave Vmax ?0.76 ? m/sec ? MV E:A ratio ?0.95 ? ratio ? LV septal e' Vmax ?? 0.08 ? m/sec ? LV lateral e' Vmax ??0.11 ? m/sec ? LV E:e' septal ratio9.39 ? ratio ? LV E:e' lateral rati6.79 ? ratio ? Aortic Valve ?Value ?Units (Range) ? AV Vmax ? 1.57 ? m/sec ? AV VTI ?30.13 ?cm ? AV peak gradient ?9.91 ? mmHg ? AV mean gradient ?5.85 ? mmHg ? LVOT diameter ? 2.16 ? cm ? LVOT Vmax ? 1.34 ? m/sec ? LVOT VTI ?25.85 ?cm ? CO LVOT ? 8.03 ? l/min ? NICKI (continuity Vmax3.13 ? cm2 ? NICKI (continuity Vmax1.66 ? cm2/m2 ? NICKI (continuity VTI)1.68 ? cm2/m2 ? Mitral Valve ?Value ?Units (Range) ? MV PHT ?54.48 ?msec ? MVA (PHT) ? 4.04 ? cm2 ? Tricuspid Valve ?Value ?Units (Range) ? TR Vmax ? 2.31 ? m/sec ? TR peak gradient ?21.3 ? mmHg ? RAP ? 3 ?mmHg ? RVSP ?24 ? mmHg ? Pulmonic Valve/Qp:Qs ?Value ?Units (Range) ? PV Vmax ? 1.18 ? m/sec ? PV VTI ?20.88 ?cm ? PV peak gradient ?5.54 ? mmHg ? PV mean gradient ?3.09 ? mmHg ? RVOT Vmax ? 0.99 ? m/sec ? RVOT VTI ?18.67 ?cm ? RVOT peak gradient ??3.93 ? mmHg ? PV acceleration time96.69 ? msec ? PV ejection time ?251.4 ?msec ? PV AT:ET ?0.38 ? ratio ? This report has been electronically sign ed by: _ Eamon Iraheta MD ? 05/26/2020 11 :13:58 Images reviewed and interpretation verif ied [facility] Cardiac Ultrasound Laboratory Procedure Note Eamon Iraheta MD - 05/26/2020Formatt ing of this note might be different from the original. Procedure: Transthoracic Echocardiogram Patient: LORNA MONTES(Age): [birth year] [age]y) Med Rec#: [id number] Sex: M Site Loc: [facility] Ht / Wt: 172.72(cm)/74.8 Pt. Loc: BSA: 1.88 Study Date: 05/26/2020 Pt. Type: Inpatie nt Tape: Referring: Clarence Aguillon Reading: Eamon Iraheta ([id number]) Live In Companion: FLACA Diagnosis: *Chest pain, unspecified (R07.9) BP: 133/88 SUMMARY: 1. The left ventricular chamber size is normal. Left ventricular wall thickness is normal. There are no left v entricular segmental wall motion abnormalities. There is normal global le ft ventricular systolic function. Ejection fraction is estimated to be 60%. 2. The right ventricle is normal in size . Right ventricular global systolic function is normal. 3. There is no hemodynamically significa nt valve disease. 4. The estimated pulmonary artery systol ic pressure is 24 mmHg. 5. See remainder of report for additiona l findings. Findings : Left Ventricle: The left ventricular andres mber size is normal. Left ventricular wall thickness is norm al. There is no evidence of left ventricula r asymmetric hypertrophy. There is no evidence of LVOT obstructio n. There is normal global left ventricular systolic function. Ejection fraction is estimated to be 60%. There are no left ventricular segmental wall motion abnormalities. Left Atrium: The left atrium is normal i n size. Right Ventricle: The right ventricle is normal in size. Right ventricular global systolic funct ion is normal. The estimated pulmonary artery systolic pressure is 24 mmHg. The estimated right atrial pressure is 3 mmHg. Right Atrium: The right atrium is normal in size. Aortic Valve: The aortic valve is trilea flet. The leaflets are thin with normal excursion. There is no aorti c stenosis or regurgitation present. Mitral Valve: The mitral valve leaflets appear normal. There is no evidence of mitral stenosis . There is trace mitral regurgitation pre sent. Tricuspid Valve: The tricuspid valve cesar flets are morphologically normal. There is trace tricuspid regurgitation present. Pulmonic Valve: The pulmonic valve appea rs normal in structure and function. Pericardium: The pericardium appears nor mal and there is no evidence of a pericardial effusion. Aorta: The ascending aorta is normal in size. Pulmonary Artery: The main pulmonary art spencer appears normal. Venous: The inferior vena cava appears n ormal in size. There is a greater than 50% respiratory change in the inferior vena cava dimension. Misc: Two-dimensional echo, spectral Dop pler and color Doppler performed. Chambers 2D Value Units (Range) IVSd (2D) 0.93 cm LVPWd (2D) 0.99 cm IVS:LVPW ratio (2D) 0.93 ratio LVIDd (2D) 4.52 cm LVIDs (2D) 3.22 cm LV FS (2D) 28.7 % EF Teichholz (2D) 55.39 % Ascending Ao 2.91 cm (2 - 3.5) Volumes/Mass Value Units (Range) LA ESV BP (A/L) inde24.77 ml/m2 LV ESV SP 4CH (MOD) 53.83 ml LV ESV SP 2CH (MOD) 46.97 ml LV EDV BP 116.06 ml LV ESV BP 51.7 ml BP EF (MOD) 55.46 % Diastolic/Systolic Function Value Units (Range) MV E-wave Vmax 0.72 m/sec MV deceleration dsvw510.86 msec MV A-wave Vmax 0.76 m/sec MV E:A ratio 0.95 ratio LV septal e' Vmax 0.08 m/sec LV lateral e' Vmax 0.11 m/sec LV E:e' septal ratio9.39 ratio LV E:e' lateral rati6.79 ratio Aortic Valve Value Units (Range) AV Vmax 1.57 m/sec AV VTI 30.13 cm AV peak gradient 9.91 mmHg AV mean gradient 5.85 mmHg LVOT diameter 2.16 cm LVOT Vmax 1.34 m/sec LVOT VTI 25.85 cm CO LVOT 8.03 l/min NICKI (continuity Vmax3.13 cm2 NICKI (continuity Vmax1.66 cm2/m2 NICKI (continuity VTI)1.68 cm2/m2 Mitral Valve Value Units (Range) MV PHT 54.48 msec MVA (PHT) 4.04 cm2 Tricuspid Valve Value Units (Range) TR Vmax 2.31 m/sec TR peak gradient 21.3 mmHg RAP 3 mmHg RVSP 24 mmHg Pulmonic Valve/Qp:Qs Value Units (Range) PV Vmax 1.18 m/sec PV VTI 20.88 cm PV peak gradient 5.54 mmHg PV mean gradient 3.09 mmHg RVOT Vmax 0.99 m/sec RVOT VTI 18.67 cm RVOT peak gradient 3.93 mmHg PV acceleration time96.69 msec PV ejection time 251.4 msec PV AT:ET 0.38 ratio This report has been electronically sign ed by: _ Eamon Iraheta MD 05/26/2020 11:13:58 Images reviewed and interpretation verif ied [facility] Cardiac Ultrasound Laboratory Clarence Aguillon MD ECHO ORDERABLES documented in this encounter Visit Diagnoses Diagnosis Chest pain, unspecified type documented in this encounter Care Teams Steam Flattener Relationship Specialty Start Date End Date Brissa Stout APRN PCP - General Family Medicine 05/26/20 [address] [place] [address] documented as of this encounter
--- OUTSIDE RECORDS SUMMARY | 2022-04-14 23:23 | XMS_ITS | Encounter Summary ---
:1980 [place] [address] Care Team Providers Name Role Phone Brissa Stout APRN Primary Care Provider Reason for Visit Reason Onset Date Comments Medication Refill 06/07/2021 Encounter Details Date Type Department Care Team Description 06/07/2021 Refill Neurology at [facility] Shawnee Dover MD [facility] [place] [address] NEUROLOGY [phone] [place], [place] [address] (Wo rk) Social History Tobacco Use Types Packs/Day Years Used Date Current Every Day Smoker Cigarettes 1.5 Smokeless Tobacco: Former User Alcohol Use Standard Drinks/Week Comments Yes 7 (1 standard drink = 0.6 oz pure alcoho l) Sex Assigned at Date Recorded Not on file documented as of this encounter Miscellaneous Notes Telephone Encounter - Sari Gutierrez RN - 06/07/2021 3:44 PM EDT Images from the original note were not included. Dayami Linda, Sari Melo, RN Patient called asking for a call back to discuss his lamoTRIgine prescription, Call placed to pt noting that he picked up his rx for lamotrigine but it says to take 2 tabs daily and he thought he was to take 2 tabs twice a day From Dr. Dover's 05/31/21office note Seizures (ddx epileptic vs. psychogenic vs. other paroxysmal event) -Labs: Depakote and Lamictal levels (drawn today, to be sent to [facility]) -Continue Lamotrigine 50 mg BID -Continue Depakote 750 mg BID -Continue carnitor supplementation Updated rx prepped for Dr. Dover's approval and call placed back to pt to confirm he is to be on lamotrigine 50 mg twice a day Pt verbalized understanding that he is to take 2 tabs twice a day of lamotrigine 25mg tab documented in this encounter Plan of Treatment Not on filedocumented as of this encounter Visit Diagnoses Not on filedocumented in this encounter Care Teams House Worker Relationship Specialty Start Date End Date Brissa Stout APRN PCP - General Family Medicine 05/26/20 [address] [place] [address] documented as of this encounter
--- OUTSIDE RECORDS SUMMARY | 2022-04-14 23:23 | XMS_ITS | Encounter Summary ---
:1980 [place] [address] Care Team Providers Name Role Phone Brissa Stout APRN Primary Care Provider Reason for Visit Reason Comments Medication Refill Encounter Details Date Type Department Care Team Description 01/04/2022 Refill Neurology at [facility] Valerie Kruger APRN [facility] [address] [place] [address] [phone] (Wo rk) Social History Tobacco Use Types Packs/Day Years Used Date Current Every Day Smoker Cigarettes 1.5 Smokeless Tobacco: Former User Alcohol Use Standard Drinks/Week Comments Yes 7 (1 standard drink = 0.6 oz pure alcoho l) Sex Assigned at Date Recorded Not on file documented as of this encounter Miscellaneous Notes Telephone Encounter - Dayami Linda CMA - 01/04/2022 10:02 AM EDT Surescript request for : levocarnitine Last rx: 12/08/20 Quantity: 120 Refills: 11 Last appt: 12/20/21 Next appt: documented in this encounter Plan of Treatment Not on filedocumented as of this encounter Visit Diagnoses Not on filedocumented in this encounter Care Teams Community Health Program Coordinator Relationship Specialty Start Date End Date Brissa Stout APRN PCP - General Family Medicine 05/26/20 [address] [place] [address] documented as of this encounter
--- OUTSIDE RECORDS SUMMARY | 2022-04-14 23:23 | XMS_ITS | Encounter Summary ---
:1980 Author Organization [facility] [place] [address] Care Team Providers Name Role Phone Brissa Stout APRN Primary Care Provider Reason for Visit Reason Onset Date Comments Appointment 11/11/2020 Encounter Details Date Type Department Care Team Description 11/11/2020 Telephone [place]rology [place] [facility] [place] Shawnee Dover MD Appointment [facility] [place] [address] NEUROLOGY DEPT [phone] [place], [place] [address] (Wo rk) Social History Tobacco Use Types Packs/Day Years Used Date Current Every Day Smoker Cigarettes 1.5 Smokeless Tobacco: Former User Alcohol Use Standard Drinks/Week Comments Yes 7 (1 standard drink = 0.6 oz pure alcoho l) Sex Assigned at Date Recorded Not on file documented as of this encounter Miscellaneous Notes Telephone Encounter - Jessica Nguyen - 11/11/2020 2:29 PM EDT Calling to schedule next available EMU admission and follow up visit after admission is completed w/Dr. Dover. Please park call to . documented in this encounter Plan of Treatment Not on filedocumented as of this encounter Visit Diagnoses Not on filedocumented in this encounter Care Teams Rec Therapist Relationship Specialty Start Date End Date Brissa Stout APRN PCP - General Family Medicine 05/26/20 [address] [place] [address] documented as of this encounter
--- OUTSIDE RECORDS SUMMARY | 2022-04-14 23:24 | XMS_ITS | Encounter Summary ---
:1980 Author Organization [facility] [place] [address] Care Team Providers Name Role Phone Bob Donald MD Primary Care Provider Encounter Details Date Type Department Care Team Description 05/14/2012 Office Visit [facility] Juma Melchor MD [address] [place] [address] [place] [address] [phone] (Wo rk) Social History Tobacco Use Types Packs/Day Years Used Date Never Assessed Sex Assigned at Date Recorded Not on file documented as of this encounter Plan of Treatment Not on filedocumented as of this encounter Visit Diagnoses Not on filedocumented in this encounter Care Teams Applied Anthropologist Relationship Specialty Start Date End Date Bob Donald MD PCP - General 02/01/11 03/10/13 [address] [place] [address] documented as of this encounter
--- OUTSIDE RECORDS SUMMARY | 2022-04-14 23:24 | XMS_ITS | Encounter Summary ---
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 Therapeutic Work Observed: Moderate Mood: Calm Notes: Pt. began drawing and called out by Francis CHIU 03/13/2013 Jeremy Cotter 03/13/2013 12:06 PM EDT Psychiatry Inpatient - Progress Note ID: Max James is a 32 y.o. male admitted on 03/11/2013 for suicide attempt via medication ingestion. Pertinent medical issues being addressed: Schizoaffective disorder, BPD, PTSD. Interval History: Denies AH, yet reports they decreased to a mumble since yesterday. Anxiety down to 4/10 attributed to Buspar and Atarax. Depression rated as mild. Reports this because he can see outside but is unable to leave. Group walks in the afternoon have been helpful. Denies SI, HI and would inform someone if that were to change. Agrees with plan of d/c +1 with transportation being a possible issue. Denies pain or paranoia. Slept well and denies physical symptoms. Quality: Patient appears relaxed Severity: feeling much better Timing: Looking forward to d/c Assoc. signs & sxs. Anxiety better with above meds Modifying factors: Sleep: Okay Effect of medications: Therapeutic, continued improvement Effect of groups: Therapeutic Duration: Context: Review of Systems: CONST No fever. CV No chest pain. RESP No shortness of breath GI No nausea. No vomiting. No diarrhea. No constipation. NEURO No headache. Extent of History Determination: Sridhar descriptors, reviewed systems, and level of history with x. HPI Descriptors 1-3 1-3 X 4 + Reviewed Systems 0 1 X 2-9 Level of Hx PF EPF X D Physical Exam: Vitals (24hr Range): Temp: [36.7 ??C (98.1 ??F)] Resp: [16] Heart Rate: [77] BP: (123)/(89) SpO2: -- Musculoskeletal System: normal gait and balance and ambulates independently Mental Status Exam: ?? Appearance: age appropriate, casually dressed and tattooed Behavior: Within Normal Limits ?? Speech: normal pitch, normal volume and soft ?? Language: normal ?? Mood: stable Affect: flat ?? Thought Process: goal directed ?? Associations: ?? Thought Content: no homicidal ideation. no suicidal ideation. Perception: +AH decribed as a mumble, denies command hallucinations, no delusions. no paranoia. ?? Orientation: person, place, time/date and situation ?? Attention/Concentration: Intact Cognition: grossly intact ?? Memory: recent and remote memory intact ?? Fund of Knowledge: appropriate ?? Insight: age appropriate Judgment: good Extent of Exam Determination: Sridhar completed bullets and level of exam with x. Bullets Completed 1-5 6-8 X 9+ Level of Exam PF EPF X D Scheduled Meds: ??? thiothixene 10 mg Oral Daily ??? busPIRone 15 mg Oral TID ??? nicotine 21 mg Transdermal Daily And ??? nicotine 1 patch Transdermal Daily ??? benztropine 2 mg Oral BID ??? lithium 600 mg Oral BID ??? thiothixene 15 mg Oral Nightly ??? risperiDONE 2 mg Oral Daily PRN Meds: docusate sodium, hydrOXYzine, magnesium hydroxide, acetaminophen, traZODone Labs (over the last 24hr): No results found for this or any previous visit (from the past 24 hour(s)). Assessment: Max James is a 32 y.o. male with a history of Schizoaffective d/o, BPD and PTSD who was admitted for evaluation s/p suicide attempt (medication ingestion see admission note on 03/11/13). Patient undergoing medication maintenance and scheduled for +1 d/c, transportation permitting. Status of overall condition: Moderately Improved Reasons for continued hospitalization: Stabilization. Medication optimization. Primary Diagnosis: Schizoaffective disorder Plan: Activity: RTU Diet: regular Medications: See above Labs/Consults/Diagnostic Procedures ordered: None Safety Risk Management: Continued AH, although mumbles history of command hallucinations with physical violence towards others. Inpatient hospitalization is warranted until AH subside completely and medication management plan is discussed and adhered. Disposition: After stabilization, patient expected to return home. Patient Instruction/Education Provided: Patient provided verbal instructions regarding treatment. I have reviewed and agree with the multidisciplinary treatment plan. Jeremy Cotter 03/13/2013 Coding Determination Complexity of MDM Determination: Sridhar appropriate # of Dx, Amt, complexity of date, Risk, & corresponding level of MDM with x. 2 out of 3 elements in row must be met to qualify. # of Possible Diagnoses or Management Options Amount and/or Complexity of Data Risk of Complications, Morbidity, and or Mortality Type of Decision Making Minimal Minimal/None Minimal Straightforward Limited Limited Low Low X Multiple X Moderate X Moderate X Moderate Extensive Extensive High High Subsequent Hospital Day Service Code Determination: Sridhar Hx, Exam, MDM & CIELO/CPT Code with x. 2 out of # mccray components in the row must be met to qualify. HISTORY EXAM MDM CIELO/CPT CODE PF PF Straightforward/Low 3005/22661 EPF EPF X Moderate 3015/22877 X D X D High X 3025/45946 Kathy Hawk RN - 03/13/2013 10:38 AM EDT Pt reports feeling much improved back on his medication. He denies depression, anxiety, SI, pain and psychotic symptoms. Inquiring re: discharge date. Patient attending groups and activities. Appears preoccupied at times, but denies internal stimuli. Encouraged to work on relapse prevention plan. Krissy Stout Danae - 03/12/2013 1:30 PM EDT Inpatient Daily Group Note Group: Goals Group Notes: The group reviewed JAY JAY Module 3 work sheets including the CUBs, TAME, and 2 Day Activity Scheduling. Pt did not attend as he was unaware of the group but later was given a group schedule and a copy of the Wellness Recovery Book. Pt reports that he has had experience in groups during a previous hospitalization. KANA RIVERA 03/12/2013 Inpatient Daily Group Note Group: Open Discussion Group Attendance: Present Behavior: Quiet Therapeutic Work Observed: Moderate Mood: Calm Notes: Group members discussed friends and family's expectations of hospitalization and the continued lack of understanding of mental illness. Pt quiet, attentive. He stated he is trying to get used tothe unit. KANA RIVERA 03/12/2013 Inpatient Daily Group Note Group: CBT; Reviewed the model and the connection between situation, thoughts, feelings and behaviors, and the goal to change thoughts and behaviors to decrease subjective distress. Patient were encouraged to apply tool to one minimum to moderately stressful situation that last two days. Attendance: Present Behavior: Expressive Therapeutic Work Observed: Moderate Mood: Calm Notes: Patient participated actively and applied tool to situation friend late to go fishing. Patient identified thoughts that triggered anger and lead to angry text messages prior to finding out that friend was running late due to incident with his children. Patient said that he could have waited to respond and distracted instead. NELL Kolb SINA, MS 03/12/2013 Inpatient Daily Group Note Group: Group Walk Attendance: Present Behavior: Conversational Therapeutic Work Observed: Moderate Mood: Calm Notes: Pt joined group for an outside walk. 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 He reports that he enjoys hiking and being outside. He seemed to enjoy getting outside. KANA RIVERA 03/12/2013 Inpatient Daily Group Note Group: Workshop Attendance: Present Behavior: Quiet Therapeutic Work Observed: Moderate Mood: Calm Notes: Pt working quietly on a crossword puzzle. KANA RIVERA 03/12/2013 Inpatient Daily Group Note Group: Medication Education Group Attendance: Present Behavior: Relevant Therapeutic Work Observed: Moderate Mood: Calm Notes: The group reviewed the medication education handout and discussed classes of medication used in psychiatry. Pt attentive, sharing some information related to his experience with medication. KANA RIVERA 03/12/2013 Jeremy Cotter 03/12/2013 12:40 PM EDT Psychiatry Inpatient - Progress Note ID: Max James is a 32 y.o. male admitted on 03/11/2013 for suicide attempt via medication ingestion. Pertinent medical issues being addressed: Schizoaffective disorder, BPD, PTSD Interval History: Reports feeling better but continues to hear voices. In the past, voices have instructed him to harm others which he states he has acted upon and has resulted in a couple of scuffles. The voice has also told him in the past to slit his wrists which he has been able to avoid. He reflects that the night that he took a large quantity of his Navane and 8 Trazodone tablets were to quiet the voices in his head and was not trying to outright harm himself. Patient also reports feeling paranoid in the previous couple of weeks leading up to his admission and felt as though his girlfriend, who normally prepares the meals, was trying to poison him. He has since realized that those thoughts were mostly likely false. Patient admits to increased anxiety recently which he attributes to being around and meeting new people. Quality: Patient appears anxious Severity: I feel better than I did Timing: Positive thoughts about moving forward Assoc. signs & sxs. Reports being tired Modifying factors: Sleep: Okay Effect of medications: Therapeutic, much improvement Effect of groups: Therapeutic Duration: Context: Review of Systems: CONST No fever. CV No chest pain. RESP No shortness of breath GI No nausea. No vomiting. No diarrhea. No constipation. NEURO No headache. Extent of History Determination: Sridhar descriptors, reviewed systems, and level of history with x. HPI Descriptors 1-3 1-3 X 4 + Reviewed Systems 0 1 X 2-9 Level of Hx PF EPF X D Physical Exam: Vitals (24hr Range): Musculoskeletal System: , normal gait and balance and ambulates independently Mental Status Exam: ?? Appearance: , age appropriate and casually dressed Behavior: Restless & fidgety ?? Speech: normal pitch and normal volume ?? Language: normal ?? Mood: stable Affect: flat ?? Thought Process: goal directed ?? Associations: ?? Thought Content: no homicidal ideation. no suicidal ideation. Perception: Positive AH with no delusions. no paranoia. ?? Orientation: person, place, time/date and situation ?? Attention/Concentration: Intact Cognition: grossly intact ?? Memory: recent and remote memory intact ?? Fund of Knowledge: appropriate ?? Insight: age appropriate Judgment: good Extent of Exam Determination: Sridhar completed bullets and level of exam with x. Bullets Completed 1-5 6-8 X 9+ Level of Exam PF EPF X D Scheduled Meds: ??? thiothixene 10 mg Oral Daily ??? busPIRone 15 mg Oral TID ??? nicotine 21 mg Transdermal Daily And ??? nicotine 1 patch Transdermal Daily ??? benztropine 2 mg Oral BID ??? lithium 600 mg Oral BID ??? thiothixene 15 mg Oral Nightly ??? risperiDONE 2 mg Oral Daily ??? DISCONTD: docusate sodium 100 mg Oral BID ??? DISCONTD: traZODone 50 mg Oral Nightly ??? DISCONTD: thiothixene 10 mg Oral QAM PRN Meds: docusate sodium, hydrOXYzine, DISCONTD: hydrOXYzine, magnesium hydroxide, acetaminophen, traZODone Labs (over the last 24hr): Recent Results (from the past 24 hour(s)) HEMOGRAM Component Value Range WBC 10.0 4.0 - 10.0 x10(3)/mcL RBC 5.61 4.63 - 6.08 x10(6)/mcL Hemoglobin 17.8 (*) 13.7 - 17.5 gm/dL Hematocrit 50.7 40.0 - 51.0 % MCV 90.4 79.0 - 92.0 fL MCH 31.7 25.6 - 32.2 pg MCHC 35.1 32.0 - 36.5 gm/dL Platelets 213 145 - 370 x10(3)/mcL RDWSD 41.5 35.0 - 46.0 fL RDWCV 12.6 10.9 - 14.4 % MPV 9.7 9.0 - 12.0 fL BASIC METABOLIC PANEL (NON-FASTING) Component Value Range Glucose Lvl 156 60 - 199 mg/dL BUN 10 10 - 20 mg/dL Creatinine 0.93 0.80 - 1.50 mg/dL Sodium 138 135 - 145 mmol/L Potassium 3.9 3.5 - 5.0 mmol/L Chloride 103 98 - 107 mmol/L CO2 23 22 - 31 mmol/L Anion Gap 12 5 - 15 mmol/L Calcium 9.9 8.5 - 10.5 mg/dL Estimated GFR >60 >=60 HEPATIC FUNCTION PANEL Component Value Range Total Protein 7.8 6.4 - 8.3 gm/dL Albumin 5.0 3.2 - 5.2 gm/dL AST 19 0 - 39 unit/L ALT 22 0 - 55 unit/L Alk Phos 75 40 - 120 unit/L Total Bilirubin 0.4 0.2 - 1.3 mg/dL Bili, Direct 0.1 0.0 - 0.3 mg/dL Assessment: Max James is a 32 y.o. male with a history of Schizoaffective disorder, BPD and PTSD who was admitted for evaluation s/p suicide attempt via medication ingestion. Patient recently discontinued his evening anti-psychotic medication which led to an increase in AH and the subsequent overdose. Status of overall condition: Minimally Improved Reasons for continued hospitalization: Stabilization. Medication optimization. Primary Diagnosis: Schizoaffective disorder Plan: Activity: RTU Diet: regular Medications: As above Labs/Consults/Diagnostic Procedures ordered: None Safety Risk Management: Continued AH. Inpatient hospitalization is warranted until medication maintanence plan can be established . Disposition: After stabilization, patient expected to return home. Patient Instruction/Education Provided: Patient provided verbal instructions regarding treatment. I have reviewed and agree with the multidisciplinary treatment plan. Jeremy Cotter 03/12/2013 Coding Determination Complexity of MDM Determination: Sridhar appropriate # of Dx, Amt, complexity of date, Risk, & corresponding level of MDM with x. 2 out of 3 elements in row must be met to qualify. # of Possible Diagnoses or Management Options Amount and/or Complexity of Data Risk of Complications, Morbidity, and or Mortality Type of Decision Making Minimal Minimal/None Minimal Straightforward Limited Limited Low Low X Multiple X Moderate X Moderate X Moderate Extensive Extensive High High Subsequent Hospital Day Service Code Determination: Sridhar Hx, Exam, MDM & CIELO/CPT Code with x. 2 out of # mccray components in the row must be met to qualify. HISTORY EXAM MDM CIELO/CPT CODE PF PF Straightforward/Low 3005/46131 EPF EPF X Moderate 3015/33080 X D X D High X 3025/09756 Kathy Hawk RN - 03/12/2013 9:46 AM EDT Pt reported he came into the hospital because he missed a few jenn of meds (not intentional- fallingasleep before taking them) and subsequent increase in AH that tell him to hurt himself and others. Pt reported he took a handful of pills to calm the voices. Pt denies depression, pain, and SI/HI today- rates anxiety as high- legs shaking. Atarax started. Reports AH better this am. Pt agreeable to attend groups- pleasant and cooperative. Lyn Mc RN - 03/12/2013 8:46 AM EDT Multidisciplinary team meeting note: Date: 03/12/2013 Attending MD: Ulisses Melchor MD Resident MD: Patient Account Receivable Associate: Lyn Mc RN Rolled Gold Plater: Kristyn ASCENCIO RN: Therapy Team: Girish Progress: multiple contacts made to collect data about pt from [facility] Plan: restart home meds which he has been non compliant with Nursing Care Plan: see care plan documented in this encounter H&P Notes Delbert Guzman MD - 03/12/2013 9:33 AM EDT Psychiatry Inpatient - Progress Note ID: Max James is a 32 y.o. male with h/o schizaffective disorder admitted on 03/11/2013 for suicide attempt via overdose in context of having stopped home medications. Pertinent medical issues being addressed: none Interval History: -Patient is on two antipsychotics due to failing multiple monotherapy trials. -Patient is pleasant and cooperative on unit. -Patient is identifying goals for this admission today. -Home medications, including two antipsychotics, confirmed with [facility]. -Team contacting [facility] health providers for collateral information. Quality: So overwhelmed by trying to deal with the voices in his head that he took a handfull of pills to make them stop Severity: Depression 0, Anxiety 6 Timing: Assoc. signs & sxs. Modifying factors: Sleep: Patient slept well, did not want to be woken for 7 AM meds so these rescheduled for 9 AM Effect of medications: Patient had stopped home meds, feels that regimen had been effective but that he simply would forget to take them. Effect of groups: Has not yet begun, planning on attending. Duration: Context: Patient has been newly restarted on his home medication regimen after two weeks of non-compliance. He feels that now that he is on the medications once again he is having less of the voices telling him to do bad things. Review of Systems: CONST No fever. CV No chest pain. RESP No shortness of breath GI No nausea. No vomiting. No diarrhea. No constipation. NEURO No headache. Extent of History Determination: Sridhar descriptors, reviewed systems, and level of history with x. HPI Descriptors 1-3 1-3 x 4 + Reviewed Systems 0 1 x 2-9 Level of Hx PF EPF x D Physical Exam: Vitals (24hr Range): Temp: [36.9 ??C (98.4 ??F)-37.1 ??C (98.8 ??F)] Resp: [16] Heart Rate: [77-85] BP: (129-156)/(84-101) SpO2: [100 %] Musculoskeletal System: normal gait and balance, ambulates independently, no atrophy and no abnormalmovements Mental Status Exam: ?? Appearance: age appropriate, casually dressed and tattooed Behavior: Anxious appearing and Within Normal Limits ?? Speech: normal pitch and soft ?? Language: normal ?? Mood: anxious, regarding meeting new people Affect: flat and mood-congruent ?? Thought Process: concrete and goal directed ?? Associations: tight ?? Thought Content: no homicidal ideation. no suicidal ideation. Perception: Patient states that his AH are decreasing today ?? Orientation: person, place, time/date and situation ?? Attention/Concentration: appropriate Cognition: grossly intact ?? Memory: recent and remote memory intact ?? Fund of Knowledge: fair ?? Insight: impaired due to taking a handfull of pills to quiet voices in his head Judgment: impaired due to possible suicide attempt versus erroneous medication overdose Extent of Exam Determination: Sridhar completed bullets and level of exam with x. Bullets Completed 1-5 6-8 x 9+ Level of Exam PF EPF x D Scheduled Meds: ??? thiothixene 10 mg Oral Daily ??? busPIRone 15 mg Oral TID ??? nicotine 21 mg Transdermal Daily And ??? nicotine 1 patch Transdermal Daily ??? benztropine 2 mg Oral BID ??? lithium 600 mg Oral BID ??? thiothixene 15 mg Oral Nightly ??? risperiDONE 2 mg Oral Daily ??? DISCONTD: docusate sodium 100 mg Oral BID ??? DISCONTD: traZODone 50 mg Oral Nightly ??? DISCONTD: thiothixene 10 mg Oral QAM PRN Meds: docusate sodium, hydrOXYzine, DISCONTD: hydrOXYzine, magnesium hydroxide, acetaminophen, traZODone Labs (over the last 24hr): Recent Results (from the past 24 hour(s)) HEMOGRAM Component Value Range WBC 10.0 4.0 - 10.0 x10(3)/mcL RBC 5.61 4.63 - 6.08 x10(6)/mcL Hemoglobin 17.8 (*) 13.7 - 17.5 gm/dL Hematocrit 50.7 40.0 - 51.0 % MCV 90.4 79.0 - 92.0 fL MCH 31.7 25.6 - 32.2 pg MCHC 35.1 32.0 - 36.5 gm/dL Platelets 213 145 - 370 x10(3)/mcL RDWSD 41.5 35.0 - 46.0 fL RDWCV 12.6 10.9 - 14.4 % MPV 9.7 9.0 - 12.0 fL BASIC METABOLIC PANEL (NON-FASTING) Component Value Range Glucose Lvl 156 60 - 199 mg/dL BUN 10 10 - 20 mg/dL Creatinine 0.93 0.80 - 1.50 mg/dL Sodium 138 135 - 145 mmol/L Potassium 3.9 3.5 - 5.0 mmol/L Chloride 103 98 - 107 mmol/L CO2 23 22 - 31 mmol/L Anion Gap 12 5 - 15 mmol/L Calcium 9.9 8.5 - 10.5 mg/dL Estimated GFR >60 >=60 HEPATIC FUNCTION PANEL Component Value Range Total Protein 7.8 6.4 - 8.3 gm/dL Albumin 5.0 3.2 - 5.2 gm/dL AST 19 0 - 39 unit/L ALT 22 0 - 55 unit/L Alk Phos 75 40 - 120 unit/L Total Bilirubin 0.4 0.2 - 1.3 mg/dL Bili, Direct 0.1 0.0 - 0.3 mg/dL Assessment: Max James is a 32 y.o. male with schizaffective disorder admitted for having taken a handful of his antipsychotic pills in a possible suicide attempt. The patient has been non-compliant with home medications, has had increasing AH in form of voices commanding him to harm self, realizes that this is because he has not been medication compliant, and took the large amount of pills in an attempt partly to harm myself, partly to make the voices stop, and to protect my girlfriend. Status of overall condition: No Change Reasons for continued hospitalization: Stabilization. Monitoring for safety. Primary Diagnosis: Schizaffective Disorder Plan: Activity: ETG Diet: regular Medications: As above Labs/Consults/Diagnostic Procedures ordered: Li level ordered for Sunday Safety Risk Management: Patient warrants ongoing inpatient hospitalization for stabilization of psychotic symptoms, recent suicide attempt, and possible optimization of medication regimen pending discussion with his outpatient providers. Disposition: After stabilization, patient expected to return home. Follow up: Psychiatric prescriber: Nurse Practitioner Mark at [facility] Therapist: none PCP: Dr. Hudson Patient Instruction/Education Provided: Patient provided verbal instructions regarding treatment plan. I have reviewed and agree with the multidisciplinary treatment plan. TAMI WINN MD 03/12/2013 PSYCHIATRY TEACHING PHYSICIAN INVOLVEMENT Location: Inpatient Unit Attending Physician: Cory Guzman MD Resident name: Dr. Tami Winn MD I saw and evaluated the patient with the above named resident/ See their note for details. I reviewed the patient's history during the visit and I agree with the details as written. My exam confirms the resident's findings. The assessment and plan were formulated in discussion with me and I agree with them as documented. Major issues addressed/discussed: Assessment: Max James is a 32 y.o. year old man with schizoaffective d/o, bipolar type, with a history of responding to auditory command hallucinations, and multiple past psychiatric admissions including admissions to [facility], following by a team at [facility], who was admitted following overdose of a combination of navane and trazodone. Patient admits that he has not been taking his evening navane, because he forgets to do. Denies other reasons for non-compliance. He has noticed that his auditory hallucinations have been getting worse since stopping navane. He sees a co nnection with the noncompliance and worsening of the voices. He reports that hallucinations were commanding him to harm his girlfriend, so he took the pills in an overdose in an attempt to kill himself so that he would not harm her. *Of note, he has a history ofharming others at the direction of his auditory command hallucinations in the past. He feels that his medication combination of risperidone, navane and lithium was helpful. On this medication regimen he had been able to stay out of the hospital for several years. He has had multiple failures for monotherapy antipsychotic trials, that is the reason for two antipsychotic med regimen. He was able to assure us that he would ask others for help on the unit before harming himself or others. He is at significant risk of violence toward others if discharged from the hospital at this time. Plan:. 1) Cont navane 10mg QAM and 15mg QHS 2) Cont risperidone 2mg QAM 3) Cont lithium 600mg BID 4) Cont Buspar 15mg TID 5) Continued psychiatric hospitalization for stablization and safety 6) Focus on coping skill development 7) Gather information from outside providers. Initial Diagnosis: Schizoaffective d/o, bipolar type (295.70 Delbert Guzman MD Coding Determination Complexity of MDM Determination: Sridhar appropriate # of Dx, Amt, complexity of date, Risk, & corresponding level of MDM with x. 2 out of 3 elements in row must be met to qualify. # of Possible Diagnoses or Management Options Amount and/or Complexity of Data Risk of Complications, Morbidity, and or Mortality Type of Decision Making Minimal Minimal/None Minimal Straightforward Limited Limited Low Low Multiple Moderate Moderate Moderate x Extensive x Extensive x High x High Subsequent Hospital Day Service Code Determination: Sridhar Hx, Exam, MDM & CIELO/CPT Code with x. 2 out of # mccray components in the row must be met to qualify. HISTORY EXAM MDM CIELO/CPT CODE PF PF Straightforward/Low 3005/20569 EPF EPF Moderate 3015/33411 x D x D x High 3025/32052 Delbert Guzman MD - 03/11/2013 10:30 PM EDT Patient Name: Max James Patient Age: 32 y.o. Birthdate: 1980 Admit date: 03/11/2013 Attending Physician: Delbert Guzman MD Psychiatry - Admission Note ID Name: Max James Age: 32 y.o. Gender: Male Marital Status: single. Girlfriend is Ruthann Children: 13 yo child Employment: on disability City of Residence: [address] [place] [phone] Guardian/Medical Decision Maker: (if other than self) self Outpatient providers: (include location) Current Psychiatrist: JOHAN Whitt Current Therapist: currently transitioning PCP: BOB DONALD MD Chief Complaint: 32 y.o. Male presents to [facility] with a h/o schizoaffective disorder, s/p suicide attempt. History of Present Illness: The patient is a 32-year-old single white male, with prior psychiatric diagnosis of schizoaffective disorder diagnosed as a teenager, currently status post overdose. His girlfriend found him unresponsive and difficult to arouse and called 9-1-1. The patient admitted to taking a handful of Navane, as well as at least 8 pills of trazodone. When asked why he had done this, the patient states that he didnot want to live any more. The patient also endorsed that he had auditory hallucinations of voices, including 1 male voice asking him to kill himself. The patient states this has happened in the past as well. The patient also endorses that he was manic 1-2 weeks prior to this incident and was pumped up and felt like he was on top ot the world. He states he was not ill and had stopped the medications for a few days. The patient has been taking the medication once in the morning as opposed to twice a day dosing. He states originally this was simply because he had forgotten the night time dose a couple nights in a row - that it wasn't his intention. But then it became a routing to omit it. He does acknowledge that he wishes he could be off the meds altogether, but that things fall apart every time he tries this. The patient also has been complaining of bugs crawling under the skin. His girlfriend reported to [facility] that she had never seen him as depressed as he was last week. Psychiatric Review of Systems: Sustained Depressed Mood: yes Sustained Elevated Mood: possibly Sustained Irritable Mood: no Flashbacks: no Nightmares: no Panic Attacks: no Chronic Worry: no Psychotic Symptoms: yes Obsessions/compulsions: no Violence: no Self Harm: yes Other Psychiatric History: Prior diagnoses: Bipolar disorder and PTSD are noted Past hospitalization and location: He has been hospitalized in [facility] at least2-3 times, has been hospitalized in the [facility] 1-2 years ago for bugs crawling on him. Suicide attempts: Significant for several overdoses and suicide attempts. He slit his wrists as a teenager and tried to overdose as well. Also states he has tried to possibly shoot himself in the head,ran into the traffic in the past, had tried to overdose with pills. Past psychiatric medications (include dose, length of use, response, reason for stopping): to be clarified Substance Use History/Treatment: The patient started drinking alcohol as a teenager. Denies any heavy drinking or alcohol. Has been sober for the last 1 year. Has only been drinking 1-2 times a week. Has 2 DWI, one when he was 16 years of age and one 2-3 years ago. The patient does endorse that he hasbeen going to AA meetings at this time. It seems that the patient is minimizing his alcohol use at this point. Marijuana use: The patient smokes marijuana twice a week on a regular basis. Denies every day smoking. Cocaine: Has tried years ago. Tried LSD years ago and has not tried any mushrooms, oxycodone, Percocet. Has tried heroin as a teenager, did not continue to abuse it. Prior to Admission Medications: No current facility-administered medications on file prior to encounter. No current outpatient prescriptions on file prior to encounter. Allergies: Allergies Allergen Reactions ??? Mushroom Comb No 1 Hives and Nausea And Vomiting Problem List: There is no problem list on file for this patient. Past Medical/Surgical History: No past medical history on file. No past surgical history on file. Family Medical/Psychiatric History: (mental illness, substance use, suicide) The patient does endorse that the sister and mother both have possibly bipolar disorder. He is not aware if they have been hospitalized. Unknown if any of these people are using any other substances. Denies any suicides in the family. Social History: The patient was born in [place]. He grew up in [place] and later on moved to [facility]. He has 5 siblings. He is the 2nd last child. He states that he grew up with mother and father. He is not in contact with 3 of his older siblings. He is only in contact with his younger sister. Heis not in contact with his mother. He has not spoken to her in 10 years. He completed 10th grade following which he got a GED. Currently on Disability. He has a 13-year-old child and currently has a girlfriend, Ruthann. History of Abuse/Neglect: denies - will readdress in the AM Review of Systems: CONST No recent weight change. No fever. EYES No blurriness. No tearing. No vision changes. ENT No hearing loss. No rhinorrhea. No hoarseness. No sore throat. CV No angina. No palpitations. No dyspnea on exertion. No leg edema. RESP No shortness of breath. No cough. No Wheezing. GI No nausea. No vomiting. No diarrhea. No constipation. No abdominal pain. /URGENT CARE (include LMP if applicable) No polyuria. No dysuria. No hematuria. MSK No muscle weakness. No myalgias. No joint stiffness. SKIN No itching. No rash. No sores. NEURO No headache. No numbness. No tremors. No weakness. No seizures. PSYCH see above. ENDO No temperature intolerance. No diaphoresis. HEME/LYMPH No easy bruising. No easy bleeding. No edema. No lymph node enlargement. ALL/IMMUNO No symptoms of sinusitis. No symptoms of environmental allergies. No frequent infections. Extent of History Determination: Sridhar completed bullets and level of exam with x. HPI Descriptors 4+ x 4+ Reviewed Systems 2-9 x 10 Past, Fam, Soc Hx 1 x 3 Level of HX D x C Physical Exam: Vitals 03/11/13 Weight - Scale 79.379 kg (175 lb) Height 172.7 cm (5' 8) BSA (Calculated - sq m) 1.95 sq meters BMI (Calculated) 26.7 Temp 37.1 ??C (98.8 ??F) Temp Source Oral Heart Rate 85 Resp 16 BP ! 156/101 mmHg BP Location Right arm Patient Position Sitting SpO2 100 % Musculoskeletal System: No atrophy or abnormal movements appreciated. Gait and station are within normal limits. (See also: MSE: Motor/behavior) GEN No acute distress. HEAD Normocephalic. Atraumatic. EYES PERRL. No scleral icterus. No injection. EOMI. ENT Moist mucous membranes. Normal dentition. Normal palatal elevation. No pharyngeal erythema. No pharyngeal exudate. NECK No LAD. No thyromegaly. CV RRR. No M/G/R. PULM Clear to auscultation bilaterally. ABD Soft. NT. ND. +BS. No hepatosplenomegaly. EXTR No C/C/E. Good peripheral pulses. NEURO Grossly nonfocal. CN II-XII grossly intact. SKIN Pressure ulcers absent Mental Status Evaluation: ?? Appearance: age appropriate and casually dressed Behavior: Within Normal Limits ?? Speech: normal pitch and normal volume ?? Language: normal ?? Mood: anxious Affect: mood-congruent ?? Thought Process: goal directed and within normal limits ?? Associations: none ?? Thought Content: no homicidal ideation. Perception: no delusions. no paranoia. ?? Orientation: person, place, time/date, situation, day of week and month of year ?? Attention/Concentration: appropriate Cognition: grossly intact ?? Memory: recent and remote memory intact ?? Fund of Knowledge: appropriate ?? Insight: fair Judgment: fair Extent of Exam Determination: Sridhar completed bullets and level of exam with x. Bullets Completed 9+ x All Psych & Constitutional + Musculoskeletal Level of Exam D x C Pertinent Labs/Studies: No results found for this or any previous visit (from the past 24 hour(s)). Assessment/Formulation: Max James is a 32 y.o. Male who presents to [facility] with h/o schizoaffective disorder and recent suicide attempt with trazodone and Navane after worsening depression. His history of multiple past suicide attempts, and recent deterioration warrant inpatient admission for medication management, safety and stabilization. Safety Risk Assessment: the patient currently contracts for safety while here on the unit, and agrees to a voluntary admission DSM Multiaxial Diagnosis: [place] I: schizoaffective disorder - depression with psychotic features [place] II: deferred [place] III: none [place] IV: poor insight, lack of coping skills [place] V: GAF 25 Immediate Treatment Plan: Admit patient to psychiatry. Activity: Restrict to Unit (RTU) Diet: regular Labs: as ordered Medications: continue prescribed regimen Preventative/Prophylaxis: -Pneumovax and Influenza immunizations to be given as needed -DVT prophylaxis not indicated: patient is at low risk for VTE and is fully ambulatory -If currently a smoker: advised about smoking cessation, will provide cessation material and support Disposition: Estimated length of time needed for hospital staff is 5 days. Proposed post-discharge care will likely include re-establishing follow-up care with existing providers. Team will contact outpatient prescriber and therapist for collateral information and continuity of care. Discussed Advanced Directives and Code Status. The patient wishes to be Full Code. I certify that the inpatient psychiatric hospital admission is medically necessary for: Treatment that could reasonably be expected to improve patient's condition. Precertification: Action taken: per day team History and Physical Addendum for 03/11 Admission [ ] I discussed this patient's situation with the resident but did not see the patient. I contributed to the formulation and treatment planning as documented above. I saw and evaluated the patient [x] with the resident. [x] and discussed the case described above with the resident within 24 hours. I reviewed the patient???s history during the visit and [x] I agree with the details as written by the resident. [ ] I agree with the above details with the following exceptions, corrections, &/or additional findings: My exam [x] confirms the resident???s findings. [ ] confirms the resident? s findings with the following exceptions, corrections, &/or additional findings: The assessment and plan were formulated in discussion with me and [x] I agree with them as documented. [ ] I agree with them with the following exceptions, corrections, &/or additional findings: Major issues addressed/discussed: Assessment: Max James is a 32 y.o. year old man with schizoaffective d/o, bipolar type, with a history of responding to auditory command hallucinations, and multiple past psychiatric admissions including admissions to [facility], following by a team at [facility], who was admitted following overdose of a combination of navane and trazodone. Patient admits that he has not been taking his evening navane, because he forgets to do since. He has noticed that his auditory hallucinations have been getting worse since stopping navane. He sees a connection with the noncompliance and worsening of the voices. Voices were commanding him to harm his girlfriend, so he took the pills inan overdose in an attempt to kill himself so that he would not harm her. *Of note, he has a history of harming others at the direction of his auditory command hallucinations in the past. He feels that his medication combination of risperidone, navane and lithium was helpful. On this medication regimen he had been able to stay out of the hospital for several years. He has had multiple failures for monotherapy antipsychotic trials, that is the reason for two antipsychotic med regimen. He was able to assure us that he would ask others for help on the unit before harming himself or others. He is at significant risk of violence toward others if discharged from the hospital at this time. Plan:. 1) Restart navane 10mg QAM and 15mg QHS 2) Restart risperidone 2mg QAM 3) Restart lithium 600mg BID 4) Restart Buspar 15mg TID 5) Continued psychiatric hospitalization for stablization and safety 6) Focus on coping skill development 7) Gather information from outside providers. Initial Diagnosis: Schizoaffective d/o, bipolar type (295.70 Delbert Guzman MD Coding Determination Complexity of MDM Determination: Sridhar appropriate # of Dx, Amt, complexity of date, Risk, & corresponding level of MDM with x. 2 out of 3 elements in row must be met to qualify. # of Possible Diagnoses or Management Options Amount and/or Complexity of Data Risk of Complications, Morbidity, and or Mortality Type of Decision Making Minimal Minimal/None Minimal Straightforward Limited Limited Low Low Multiple Moderate Moderate Moderate x Extensive x Extensive x High x High Initial Inpatient Day Service Code Determination: Sridhar level of Hx, Exam, MDM & CIELO/CPT Code with ? X? . All 3 mccray components in the row must bemet to qualify. HISTORY EXAM MDM CIELO / CPT CODE Detailed Detailed Straightforward/Low 3000 / 83979 Comprehensive Comprehensive Moderate 3010 / 31521 x Comprehensive x Comprehensive x High x 3020 / 06376 documented in this encounter Miscellaneous Notes Discharge Summary - Delbert Guzman MD - 03/14/2013 10:17 AM EDT Psychiatry Inpatient - Discharge Summary Patient Name: Max James Patient Age: 32 y.o. Date of : 1980 Admit Date: 03/11/2013 Discharge Date: 03/14/2013 Attending Physician: Delbert Guzman MD Resident Physician: Tami Winn MD Reason for Hospitalization: safety, stabilization and medication management Discharge Multiaxial Diagnosis: [place] I: schizoaffective disorder [place] II: deferred [place] III: none [place] IV: patient had stopped taking home medications, girlfriend had stopped checking in on this [place] V: Admission GAF: 25 Discharge GAF: 45 History of Presentation: Per H&P: The patient is a 32-year-old single white male, with prior psychiatric diagnosis of schizoaffectivedisorder diagnosed as a teenager, currently status post overdose. His girlfriend found him unresponsive and difficult to arouse and called 9--. The patient admitted to taking a handful of Navane, as well as at least 8 pills of trazodone. When asked why he had done this, the patient states that he did not want to live any more. The patient also endorsed that he had auditory hallucinations of voices,including 1 male voice asking him to kill himself. The patient states this has happened in the past as well. The patient also endorses that he was manic 1-2 weeks prior to this incident and was pumped up and felt like he was on top ot the world. He states he was not ill and had stopped the medicationsfor a few days. The patient has been taking the medication once in the morning as opposed to twice aday dosing. He states originally this was simply because he had forgotten the night time dose a couple nights in a row - that it wasn't his intention. But then it became a routing to omit it. He does acknowledge that he wishes he could be off the meds altogether, but that things fall apart every time he tries this. The patient also has been complaining of bugs crawling under the skin. His girlfriend reported to [facility] that she had never seen him as depressed as he was last week. Hospital Course: Max James was voluntarily admitted to inpatient psychiatry for safety, stabilization, and medication optimization. Standard admission labs were unremarkable. Upon admission the patient was restarted on his home medications and within 24 hours was significantly improved. He had no further SI, no HI, and was much less anxious. By 48 hours the voices were just an occasional mumble. His mental health team was contacted and they stated that this is a pattern where he will do very well on his outpatient regimen but simply forgets to take the medications every2 years or so and end up in a bad situation. They felt that this did not warrant a medication supply planner at this point. Mr. James volunteered that perhaps a pill box would be helpful. A very nice Sun-Sat pill box with AM/PM dose containers was graciously donated by [facility] outpatient pharmacy free of chargeand the patient was very pleased with the gift. [facility] so he wouldn't forget his medications in the future. The patient voiced an understanding (from the first day of admission) that the voices in his head come when he is off of his medication and that he must stay on his medications, and if the voices return he must call [facility] emergency hotline. Mr. James benefitted from the therapeutic environment and attended group sessions. He was cooperative, future oriented, and got along well with the other patients on the unit. On the day of discharge, the patient denied thoughts of suicide, homicide, or violence. Follow up was scheduled as described below, and this information was provided to the patient in his After Visit Summary. Patient was also provided with emergency contact information. Important Lab Data: none Important Studies: Li level therapeutic at discharge Pending Studies and Labs: None. ECT, Operations, or Other Major Procedures: None. Discharge Condition/Prognosis: Satisfactory condition. Prognosis is dependent on patient's participation in ongoing treatment and adherence with prescribedmedications. Discharge to: Home. Discharge Medications (Reviewed): Thiothixiene (Navane) 5mg Capsule Take two capsules (10mg) every morning Psychosis Thiothixiene (Navane) 5mg Capsule Take three capsules (15mg) every night Psychosis Risperidone (Risperidal) 2mg tablet Take one tablet (2mg) every morning Psychosis Hydroxyzine (Atarax) 25mg tablet Take one tablet (25mg) three times daily as needed Anxiety Buspirone (Buspar) 15mg tablet Take one tablet (15mg) three times daily Anxiety Benztropine (Cogentin) 1mg tablet Take two tablets (2mg) twice daily Stiffness Sallis 300mg capsules Take two capsules (600mg) twice daily Mood Updated Allergies/ADRs: Allergies Allergen Reactions ??? Mushroom Comb No 1 Hives and Nausea And Vomiting ??? Prozac (Fluoxetine) Severe agitation ??? Zoloft (Sertraline) Severe agitation Follow-up Recommendations for Providers: Would consider use of pharmacy bubble packs to increase medication compliance. Instructions Given to Patient at Discharge: Provider Instructions None General Instructions None Follow-up Providers/Appointments (if not listed above): Discharge References/Attachments None DISCHARGE MEDICATIONS, INDICATIONS, AND REASON FOR MULTIPLE ANTIPSYCHOTIC DRUGS Navane for psychosis Risperidone for psychosis Sallis for mood stabilization Cogentin for control of antipsychotic med side effects Hydroxyzine for anxiety Buspar for anxiety Trazodone for sleep Patient is on two antipsychotic medications because he has failed multiple attempts at single drug therapy and he has responded to command auditory hallucinations multiple times including fighting withothers and harming himself in a serious manner of suicide attempt Signed: TAMI WINN MD 03/14/2013 I examined the Max James on the day of discharge. He denied any suicidal ideation and was future oriented. He had no command hallucinations at the time of discharge and agreed to take his medications regularly. I agree with the discharge summary as written. Cory Guzman MD Plan of Care - Jade Deleon RN - 03/14/2013 10:03 AM EDT Problem: Trauma/Injury Risk (Adult, Obstetric) Intervention: Reality Orientation Patient alert and oriented x 4. Goal: Trauma/Injury Risk: Absence of Trauma/Injury/Falls Outcome: Outcome achieved Date Met: 03/14/13 Steady gait. No complaints of dizziness. Problem: Thought Process Alteration (Adult, Obstetric) Goal: Thought Process Alteration: Improved Thought Process Outcome: Outcome achieved Date Met: 03/14/13 Patient set for discharge today and is in agreement with plan. Patient denies suicidal or homicidal ideation and contracts for safety. Patient completed his Wellness Recovery and Safety Plan. Plan of Care - Adrienne Stephenson RN - 03/14/2013 1:56 AM EDT Problem: Trauma/Injury Risk (Adult, Obstetric) Goal: Trauma/Injury Risk: Absence of Trauma/Injury/Falls Outcome: Absent and monitoring Gait is steady. Fall risk prevention discussed with patient. Problem: Thought Process Alteration (Adult, Obstetric) Intervention: Promote Self-Care Patient attending groups and completed a CUB and a relapse prevention along with a point of care survey this evening. Goal: Thought Process Alteration: Improved Thought Process Outcome: Present (see interventions, notes) Patient stated no AH this evening but had some yesterday. He is nearing discharge and states no depression or anxiety or pain. No SI or HI. Miscellaneous - Tomy Green - 03/13/2013 7:02 PM EDT Plan of Adrienne Serna RN - 03/13/2013 12:35 AM EDT Problem: Thought Process Alteration (Adult, Obstetric) Goal: Thought Process Alteration: Improved Thought Process Outcome: Present (see interventions, notes) Patient denies depression and states anxiety 4/10. He states intermittent Ah and hopes that taking his medications again will relieve the voices. He is using distraction and going to groups. He feels that the atarax is not all that helpful but his anxiety did decrease slightly. Plan of Adrienne Serna RN - 03/12/2013 11:49 PM EDT Problem: Trauma/Injury Risk (Adult, Obstetric) Goal: Trauma/Injury Risk: Absence of Trauma/Injury/Falls Outcome: Absent and monitoring Gait is steady. Fall risk prevention reviewed. documented in this encounter Plan of Treatment Not on filedocumented as of this encounter Procedures Procedure Name Priority Date/Time Associated Diagnosis Comme nts LITHIUM LEVEL Routine 03/14/2013 6:22 AM Results for this EDT procedure are i n the results section. EKG 12-LEAD Routine 03/12/2013 9:27 AM Depression Results f or this EDT procedure are i n the results section. HEMOGRAM Routine 03/12/2013 8:28 AM Results f or this EDT procedure are i n the results section. HEPATIC FUNCTION Routine 03/12/2013 8:28 AM Resul ts for this PANEL EDT procedure are i n the results section. BASIC METABOLIC Routine 03/12/2013 8:28 AM Result s for this PANEL (NON-FASTING) EDT procedur e are in the results section. documented in this encounter Results Sallis level (03/14/2013 6:22 AM EDT) P athologist Signature Sallis Lvl 0.75 mmol/L [facility] Comment: Therapeutic level for bipolar depression : 0.60-1.20 mmol/L Action Level: ?? Acute toxicity: ?>4.00 mmol/L ?? Chronic toxicity: ??>1.50 mmol/L Values greater than or equal to the acti on level necessitate clinical intervention. ??Values less than this le salomón may necessitate intervention based on clinical condition of the patient. Ref: ??Maris cardenas Toxicologic Emergencies 6th ed 1997; p . 967 Specimen Anatomical Collection Method Collection Time Receive d Time (Source) Location / / Volume Laterality Blood specimen 03/14/2013 6:22 AM 013 6:35 (specimen) EDT AM EDT Resulting Agency Comment Spec In Lab Delbert Guzman MD CHEMISTRY ORDERABLES Performing Organization Address City/[facility]/ZIP Code Phon e Number [place] [id number] CERNER MILLENNIUM EKG 12 Lead (03/12/2013 9:27 AM EDT) Patholo gist Method Time Signature Ventricular rate 78 BPM MUSE SYSTEM Atrial Rate 78 BPM MUSE SYSTEM P-R Interval 182 ms MUSE SYSTEM QRS Duration 104 ms MUSE SYSTEM Q-T Interval 372 ms MUSE SYSTEM QTC Calculated 424 ms MUSE SYSTEM (Bezet) Calculated P [place] 39 degrees MUSE SYSTEM Calculated R [place] 61 degrees MUSE SYSTEM Calculated T [place] 39 degrees MUSE SYSTEM INTERPRETATION Normal sinus rhythm MUSE SYSTEM Normal ECG No previous ECGs available Confirmed by Audelia CH[facility] ([id number]) on 03/13/2013 10:35:17 AM Specimen Anatomical Collection Method Collection Time Receive d Time (Source) Location / / Volume Laterality 03/12/2013 9:27 AM 3 EDT 10:35 AM EDT Delbert Guzman MD ECG ORDERABLES Performing Organization Address City/State/ZIP Code Phon e Number MUSE SYSTEM Hepatic Function Panel (03/12/2013 8:28 AM EDT) P athologist Signature Total Protein 7.8 6.4 - 8.3 CERNER gm/dL MILLENNIUM Albumin 5.0 3.2 - 5.2 CERNER gm/dL MILLENNIUM AST 19 0 - 39 CERNER unit/L MILLENNIUM ALT 22 0 - 55 CERNER unit/L MILLENNIUM Alk Phos 75 40 - 120 CERNER unit/L MILLENNIUM Total 0.4 0.2 - 1.3 CERNER Bilirubin mg/dL MILLENNIUM Bili, Direct 0.1 0.0 - 0.3 CERNER mg/dL MILLENNIUM Specimen Anatomical Collection Method Collection Time Receive d Time (Source) Location / / Volume Laterality Blood specimen 03/12/2013 8:28 AM 013 8:36 (specimen) EDT AM EDT Resulting Agency Comment Spec In Lab Delbert Guzman MD CHEMISTRY ORDERABLES Performing Organization Address City/State/[place] [address] CERNER MILLENNIUM Basic Metabolic Panel (non-fasting) (03/12/2013 8:28 AM EDT) athologist Signature Glucose Lvl 156 60 - 199 CERNER mg/dL MILLENNIUM Comment: Diabetes: >=200 mg/dL plus symp toms BUN 10 10 - 20 mg/dL CERNER MILLENNIU M Creatinine 0.93 0.80 - 1.50 mg/dL CERNER MILL ENNIUM Comment: Please note that the pediatric reference intervals supplied above were not validated at [facility]. Results from pediatri c patients should be interpreted in conjunction to the patient's age, height and muscle mass. Sodium 138 135 - 145 mmol/L CERNER KEITH NIUM Potassium 3.9 3.5 - 5.0 mmol/L CERNER KEITH NIUM Comment: Please note: ??Patients with WBC >100,00 0 may have falsely elevated Potassium levels. ??For accurate Potassium quantif ication in these patients send serum separator tube (gold top) for subsequent determinations. ??Contact the Clinical Chemistry Laboratory if there are any qu estions. Chloride 103 98 - 107 mmol/L CERNER MILLENN IUM CO2 23 22 - 31 mmol/L CERNER MILLENNI UM Anion Gap 12 5 - 15 mmol/L CERNER MILLENNIU M Calcium 9.9 8.5 - 10.5 mg/dL CERNER KEITH NIUM Estimated GFR >60 >=60 CERNER MILLENNIU M Comment: This estimated GFR (eGFR) value was calc ulated using the MDRD equation which has been validated on patients between t he ages of 18 and 70. The MDRD should not be used to assess kidney function in patients < 18 years of age or in patients with extremes of body mass, or in patients with acute kidney failure. This value should be multiplied by 1.2 f or patients. For further information please copy and past e the following links into your internet browser. http://www.nkdep.nih.gov/lab-evaluation. shtml http://www.kidney.org/professionals/ Specimen Anatomical Collection Method Collection Time Receive d Time (Source) Location / / Volume Laterality Blood specimen 03/12/2013 8:28 AM 013 8:36 (specimen) EDT AM EDT Resulting Agency Comment Spec In Lab Delbert Guzman MD CHEMISTRY ORDERABLES Performing Organization Address City/State/[place] [address] CERNER MILLENNIUM (ABNORMAL) Hemogram (03/12/2013 8:28 AM EDT) P athologist Signature WBC 10.0 4.0 - 10.0 CERNER x10(3)/mcL MILLENNIUM RBC 5.61 4.63 - CERNER 6.08 MILLENNIUM x10(6)/mcL Hemoglobin 17.8 (H) 13.7 - CERNER 17.5 gm/dL MILLENNIUM Hematocrit 50.7 40.0 - CERNER 51.0 % MILLENNIUM MCV 90.4 79.0 - CERNER 92.0 fL MILLENNIUM MCH 31.7 25.6 - CERNER 32.2 pg MILLENNIUM MCHC 35.1 32.0 - CERNER 36.5 gm/dL MILLENNIUM Platelets 213 145 - 370 CERNER x10(3)/mcL MILLENNIUM RDWSD 41.5 35.0 - CERNER 46.0 fL MILLENNIUM RDWCV 12.6 10.9 - CERNER 14.4 % MILLENNIUM MPV 9.7 9.0 - 12.0 CERNER fL MILLENNIUM Specimen Anatomical Collection Method Collection Time Receive d Time (Source) Location / / Volume Laterality Blood specimen 03/12/2013 8:28 AM 013 8:36 (specimen) EDT AM EDT Resulting Agency Comment Spec In Lab Delbert Guzman MD HEMATOLOGY ORDERABLES Performing Organization Address City/State/ZIP Code Phon e Number [facility] [place] [address] [facility] documented in this encounter Visit Diagnoses Diagnosis Depression - Primary Depressive disorder, not elsewhere class ified documented in this encounter Administered Medications Inactive Administered Medications - up to 3 most recent administrations Medication Order MAR Action Action Date Dose Rate Site acetaminophen (TYLENOL) tablet 650 Given 03/11/2013 8:54 PM EDT 650 mg mg 650 mg, Oral, EVERY 6 HOURS PRN, Starting on Sun03/11/13 at 2047, Until Sun03/14/13 at 1552, Pain, Fever, Administer for temperature greater than or equal to 38.2 degrees celsius (Not to exceed 4000 mg per 24 hours), Routine benztropine (COGENTIN) tablet 2 mg Given 03/14/2013 10:31 AM EDT 2 mg 2 mg, Oral, 2 TIMES DAILY, First dose on Sun03/11/13 at 2200, Until Discontinued, Routine Given 03/13/2013 9:00 PM EDT 2 mg Given 03/13/2013 8:14 AM EDT 2 mg busPIRone (BUSPAR) tablet 15 mg Given 03/14/2013 9:00 AM EDT 15 mg 15 mg, Oral, 3 TIMES DAILY, First dose on Sun03/12/13 at 1100, Until Discontinued, Routine Given 03/13/2013 9:00 PM EDT 15 mg Given 03/13/2013 3:24 PM EDT 15 mg hydrOXYzine (ATARAX) tablet 25-50 mg Given 03/14/2013 9:00 AM EDT 50 mg 25-50 mg, Oral, 3 TIMES DAILY PRN, Starting on Sun03/12/13 at 0945, Until Sun03/14/13 at 1552, Anxiety, Routine Given 03/13/2013 8:07 PM EDT 50 mg Given 03/13/2013 11:22 AM EDT 50 mg lithium capsule 600 mg Given 03/14/2013 9:00 AM EDT 600 mg 600 mg, Oral, 2 TIMES DAILY, First dose on Sun03/11/13 at 2200, Until Discontinued, Take with Food, Routine Given 03/13/2013 9:00 PM EDT 600 mg Given 03/13/2013 8:14 AM EDT 600 mg nicotine (NICODERM CQ) 21 mg/24 hr Patch Applied 03/14/2013 9:00 AM E DT 21 mg patch 21 mg 21 mg, Transdermal, DAILY, First dose on Sun03/12/13 at 0900, Until Discontinued, Routine Given 03/13/2013 8:14 AM EDT 21 mg Given 03/12/2013 9:00 AM EDT 21 mg nicotine (NICODERM CQ) patch REMOVAL Given 03/13/2013 8:14 AM EDT 1 patch Transdermal, DAILY, First dose on Sun03/12/13 at 0900, Until Discontinued, Remove Nicotine Patch Given 03/12/2013 9:00 AM EDT 1 patch risperiDONE (RISPERDAL) tablet 2 mg Given 03/14/2013 9:00 AM EDT 2 mg 2 mg, Oral, DAILY, First dose on Sun03/12/13 at 1000, Until Discontinued, Routine Given 03/13/2013 8:14 AM EDT 2 mg Given 03/12/2013 10:31 AM EDT 2 mg thiothixene (NAVANE) capsule 10 mg Given 03/12/2013 7:07 AM EDT 10 mg 10 mg, Oral, EVERY MORNING, First dose on Sun03/12/13 at 0700, Until Discontinued thiothixene (NAVANE) capsule 10 mg Given 03/14/2013 9:00 AM EDT 10 mg 10 mg, Oral, DAILY, First dose (after last modification) on Sun03/13/13 at 0900, Until Discontinued Given 03/13/2013 8:14 AM EDT 10 mg thiothixene (NAVANE) capsule 15 mg Given 03/13/2013 9:00 PM EDT 15 mg 15 mg, Oral, NIGHTLY, First dose on Sun03/11/13 at 2200, Until Discontinued Given 03/12/2013 9:00 PM EDT 15 mg Given 03/11/2013 10:48 PM EDT 15 mg documented in this encounter Active and Recently Administered Medications Times are shown in EDT. Scheduled Medication Order 03/12/2013 03/13/2013 03/14/2013 benztropine (COGENTIN) tablet 2 mg (CANCELED) 0900 (Gi zaid - Provider: Kathy Hawk RN)2100 (Given - Provider: Adrienne Stephenson RN) 0814 (Given - Provider: Kathy Hawk RN)2100 (Given - Provider: Adrienne Stephenson RN) 0900 (Not Given - Provider: Jade kuo RN - Reason: Medication not available)1031 (Given - Provider: Jade Deleon RN) 2 mg, Oral, 2 TIMES DAILY, First dose on Sun03/11/13 at 2200, Until Discontinued, Routine busPIRone (BUSPAR) tablet 15 mg (CANCELED) 1220 (Given - Provider: Kathy Hawk RN)1658 (Given - Provider: Kathy Hawk RN)2100 (Given - Provider: Adrienne Stephenson RN) 0814 (Given - Provider: Kathy kolb RN)1524 (Given - Provider: Kathy Hawk RN)2100 (Given - Provider: Adrienne Newton RN) 0900 (Given - Provider: Akhil Estrada) 15 mg, Oral, 3 TIMES DAILY, First dose o n Sun03/12/13 at 1100, Until Discontinued, Routine lithium capsule 600 mg (CANCELED) 0900 (Given - Provid er: Kathy Hawk RN)2100 (Given - Provider: Adrienne Stephenson RN) 08 (Given - Provider: Kathy Hawk RN)2100 (Given - Provider: Adrienne Stephenson RN) 0900 (Given - Provider: Jade Deleon RN) 600 mg, Oral, 2 TIMES DAILY, First dose on Sun03/11/13 at 2200, Until Discontinued, Take with Food, Routine nicotine (NICODERM CQ) 21 mg/24 hr patch 21 mg (CANCEL ED) 0900 (Given - Provider: Kathy Hawk RN) 0814 (Given - Provider: Kathy Hawk RN) 0900 (Patch Applied - Provider: Jade Deleon RN) 21 mg, Transdermal, DAILY, First dose on Sun03/12/13 at 0900, Until Discontinued, Routine nicotine (NICODERM CQ) patch REMOVAL (CANCELED) 0900 ( Given - Provider: Kathy Hawk RN) 0814 (Given - Provider: Kathy Hawk RN) 0900 (P atch Removed - Provider: Jade Deleon RN) Transdermal, DAILY, First dose on Sun at 0900, Until Discontinued, Remove Nicotine Patch risperiDONE (RISPERDAL) tablet 2 mg (CANCELED) 1031 (G iven - Provider: Kathy Hawk RN) 0814 (Given - Provider: Kathy Hawk RN) 0900 (G iven - Provider: Jade Deleon RN) 2 mg, Oral, DAILY, First dose on 02/12 at 1000, Until Discontinued, Routine thiothixene (NAVANE) capsule 10 mg (CANCELED) 0707 (Gi zaid - Provider: Natalio Drummond RN) 10 mg, Oral, EVERY MORNING, First dose o n Sun03/12/13 at 0700, Until Discontinued, Routine thiothixene (NAVANE) capsule 10 mg (CANCELED) 0814 (Given - Provider: Kathy Hawk RN) 0900 (Given - Provider: Akhil Estrada) 10 mg, Oral, DAILY, First dose on 08/25 at 0900, Until Discontinued, Routine thiothixene (NAVANE) capsule 15 mg (CANCELED) 2100 (Gi zaid - Provider: Adrienne Stephenson RN) 2100 (Given - Provider: Adrienne Stephenson RN) 15 mg, Oral, NIGHTLY, First dose on Sun03/11/13 at 2200, Until Discontinued, Routine PRN Medication Order 03/12/2013 03/13/2013 03/14/2013 hydrOXYzine (ATARAX) tablet 25-50 mg 1031 (Given - Pro vider: Kathy Hawk RN)1903 (Given - Provider: Kathy Hawk RN) 1122 (Given - Provider: Kathy Hawk RN)2007 (Given - Provider: Adrienne Stephenson RN) 0900 (Given - Provider: Jade Deleon RN) 25-50 mg, Oral, 3 TIMES DAILY PRN, Start ing Sun03/12/13 at 0945, Until Sun03/14/13 at 1552, Anxiety, Routine documented in this encounter Care Teams Class B Truck Driver Relationship Specialty Start Date End Date Bob Donald MD PCP - General 03/11/13 05/26/[address] [place] [id number] documented as of this encounter
--- OUTSIDE RECORDS SUMMARY | 2022-04-14 23:24 | XMS_ITS | Encounter Summary ---
:1980 Author Organization [facility] [place] [address] Care Team Providers Name Role Phone Bob Donald MD Primary Care Provider Encounter Details Date Type Department Care Team Description 07/[facility] [address] [place] [address] ORTHOPAEDICS [phone] [place], [place] [address] (Wo rk) Social History Tobacco Use Types Packs/Day Years Used Date Never Assessed Sex Assigned at Date Recorded Not on file documented as of this encounter Plan of Treatment Not on filedocumented as of this encounter Visit Diagnoses Not on filedocumented in this encounter Care Teams Cell Lead Relationship Specialty Start Date End Date Bob Donald MD PCP - General 02/01/11 03/10/13 [address] [place] [address] documented as of this encounter
--- OUTSIDE RECORDS SUMMARY | 2022-04-14 23:24 | XMS_ITS | Encounter Summary ---
:1980 Author Organization [facility] [place] [address] Care Team Providers Name Role Phone Bob Donald MD Primary Care Provider Encounter Details Date Type Department Care Team Description 07/17/2012 Follow-Up [facility] Juma Melcohr MD [address] [place] [address] [place] [address] [phone] (Wo rk) Social History Tobacco Use Types Packs/Day Years Used Date Never Assessed Sex Assigned at Date Recorded Not on file documented as of this encounter Plan of Treatment Not on filedocumented as of this encounter Visit Diagnoses Not on filedocumented in this encounter Care Teams Air Twister Winder Relationship Specialty Start Date End Date Bob Donald MD PCP - General 02/01/11 03/10/13 [address] [place] [address] documented as of this encounter
--- OUTSIDE RECORDS SUMMARY | 2022-04-14 23:24 | XMS_ITS | Encounter Summary ---
:1980 [place] [address] Care Team Providers Name Role Phone Bob Donald MD Primary Care Provider Encounter Details Date Type Department Care Team Description 03/12/2013 Telephone Psychiatry and Behavioral Franky Stevenson, [facility] [place] [address] Social History Tobacco Use Types Packs/Day Years Used Date Current Every Day Smoker 1.5 Smokeless Tobacco: Former User Alcohol Use Standard Drinks/Week Comments Yes 7 (1 standard drink = 0.6 oz pure alcoho l) Sex Assigned at Date Recorded Not on file documented as of this encounter Miscellaneous Notes Telephone Encounter - Franky Stevenson MSW - 03/12/2013 8:28 AM EDT [phone] This patient's medications were left behind. They will hold them for him to potato picker. If he does not want them, please call the PCU and inform them so they can dispose of them. Thank you. documented in this encounter Plan of Treatment Not on filedocumented as of this encounter Visit Diagnoses Not on filedocumented in this encounter Care Teams Irrigator Gravity Flow Relationship Specialty Start Date End Date Bob Donald MD PCP - General 03/11/13 05/26/[address] [place] [id number] documented as of this encounter
--- OUTSIDE RECORDS SUMMARY | 2022-04-14 23:24 | XMS_ITS | Encounter Summary ---
:1980 Author Organization [facility] [place] [address] Care Team Providers Name Role Phone Bob Donald MD Primary Care Provider Encounter Details Date Type Department Care Team Description 03/13/2011 Office Visit [facility] Bob Donald MD [address] [place] [address] [place] [address] [phone] (Wo rk) Social History Tobacco Use Types Packs/Day Years Used Date Never Assessed Sex Assigned at Date Recorded Not on file documented as of this encounter Plan of Treatment Not on filedocumented as of this encounter Visit Diagnoses Not on filedocumented in this encounter Care Teams Quality Assurance Manager Relationship Specialty Start Date End Date Bob Donald MD PCP - General 02/01/11 03/10/13 [address] [place] [address] documented as of this encounter
--- OUTSIDE RECORDS SUMMARY | 2022-04-14 23:24 | XMS_ITS | Encounter Summary ---
:1980 Author Organization [facility] [place] [address] Care Team Providers Name Role Phone Bob Donald MD Primary Care Provider Encounter Details Date Type Department Care Team Description 05/01/2012 Office Visit [facility] Bob Donald MD [address] [place] [address] [place] [address] [phone] (Wo rk) Social History Tobacco Use Types Packs/Day Years Used Date Never Assessed Sex Assigned at Date Recorded Not on file documented as of this encounter Plan of Treatment Not on filedocumented as of this encounter Visit Diagnoses Not on filedocumented in this encounter Care Teams Disk Sharpener Relationship Specialty Start Date End Date Bob Donald MD PCP - General 02/01/11 03/10/13 [address] [place] [address] documented as of this encounter
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
--- OUTSIDE RECORDS SUMMARY | 2022-04-14 23:25 | XMS_ITS | Encounter Summary ---
:1980 Author Organization [facility] Address [address] [place] [address] Care Team Providers Name Role Phone Unavailable Primary Care Provider Unavailable Encounter Details Date Type Department Care Team Description 09/24/2019 Lab Requisition [facility] Unknown, Provider, Pathology & Laboratory [facility] [address] [place] [address] [place] [address] Social History Tobacco Use Types Packs/Day Years Used Date Never Assessed Sex Assigned at Date Recorded Not on file documented as of this encounter Plan of Treatment Not on filedocumented as of this encounter Procedures Procedure Name Priority Date/Time Associated Diagnosis Comme nts HEPATITIS C AB W Routine 09/24/2019 10:20 Results for this REFLEX TO HCV RNA EST procedure are in BY PCR the results section. HEPATITIS B SURFACE Routine 09/24/2019 10:20 Resu lts for this ANTIBODY EST procedure are i n the results section. documented in this encounter Results HEPATITIS B SURFACE ANTIBODY (09/24/2019 10:20 EST) Hep B Surface Ab, <3.1 See Note [facility] Quantitative Comment: mIU/mL [facility] Reference Range for Hep B Surface Ab, Quant: SERVICES Positive: >= 10.0 mIU/mL Negative: ??< 10.0 mIU/mL Patient is presumed to not be immune to infection with Hepatitis B Virus. Hep B Surface Ab, Negative See Note [facility] Qualitative Comment: [facility] Reference Range for Hep B Surface Ab, Qual: Unvaccinated: ??Negative Vaccinated: ??Positive Specimen Blood - Venous blood (substance) Performing Organization Address City/State/ZIP Code Phon e Number [facility] [address] [place] [address] SERVICES HEPATITIS C AB W REFLEX TO HCV RNA BY PCR (09/24/2019 10:20 EST) Pathologist Sig nature Hep C Antibody Negative Negative [facility] [place] SERVICES Specimen Blood - Venous blood (substance) Performing Organization Address City/State/ZIP Code Phon e Number [facility] [address] [place] [address] SERVICES documented in this encounter Visit Diagnoses Not on filedocumented in this encounter
--- OUTSIDE RECORDS SUMMARY | 2022-04-14 23:25 | XMS_ITS | Encounter Summary ---
:1980 Author Organization [facility] Address [address] [place] [address] Care Team Providers Name Role Phone Unavailable Primary Care Provider Unavailable Encounter Details Date Type Department Care Team Description 05/25/2020 Lab Requisition [facility] Outr Resulting Lab, Pathology & Laboratory Provider [facility] [address] [place] [address] Social History Tobacco Use Types Packs/Day Years Used Date Never Assessed Sex Assigned at Date Recorded Not on file documented as of this encounter Plan of Treatment Not on filedocumented as of this encounter Procedures Procedure Name Priority Date/Time Associated Diagnosis Comme nts COVID-19 TEST [facility] Today 05/25/2020 16:14 LAB PCR EDT COVID-19 TESTING Routine 05/25/2020 16:14 Results for this EDT procedure are i n the results section. documented in this encounter Results COVID-19 TEST [facility] LAB PCR (05/25/2020 16:14 EDT) Specimen Swab - Nasal (qualifier value) Performing Organization Address City/State/ZIP Code Phon e Number [facility] [address] [place] [address] SERVICES COVID-19 TESTING (05/25/2020 16:14 EDT) COVID-19 rt-PCR Negative Negative [facility] Result Comment: [facility] This test has not been FDA c leared or approved. This test has been authorized by FDA under an EUA for use by authorized laboratories. This test has been authorized only for detection of nucleic acid fro SERVICES m 2019-nCoV, not for any oth er viruses or pathogens. This test is only authorized for the duration of the declaration that circumstances exist justifying the authorization of emergency use of in vitro d iagnostic tests for detectio n and/or diagnosis of 2019-nCoV under section 564(b)(1) of Act, 21 U.S.C ?? 360bbb-3(b) (1), unless the authorization is terminated or revoked sooner. Negative results do not prec lude 2019-nCoV infection and should not be used as the sole basis for treatment or other patient management decisions. Negative results must be combined with clinical observa tions, patient history, and epidemiological informatio n. Performed on the SynAgileher Fusion instrument Performing Lab [place] [facility] Lab [facility] SERVICES Specimen Swab - Nasal (qualifier value) Performing Organization Address City/State/ZIP Code Phon e Number [facility] [address] [place] [address] SERVICES documented in this encounter Visit Diagnoses Not on filedocumented in this encounter
--- OUTSIDE RECORDS SUMMARY | 2022-04-14 23:25 | XMS_ITS | Encounter Summary ---
:1980 Author Organization [facility] Address [address] [place] [address] Care Team Providers Name Role Phone Unavailable Primary Care Provider Unavailable Encounter Details Date Type Department Care Team Description 09/24/2019 Lab Requisition [facility] Unknown, Provider, Pathology & Laboratory [facility] [address] [place] [address] [place] [address] Social History Tobacco Use Types Packs/Day Years Used Date Never Assessed Sex Assigned at Date Recorded Not on file documented as of this encounter Plan of Treatment Not on filedocumented as of this encounter Procedures Procedure Name Priority Date/Time Associated Comments Diagnosis HIV 1/2 ANTIGEN AND Routine 09/24/2019 10:20 Resu lts for this ANTIBODY, 4TH EST procedure are in GENERATION the results section. documented in this encounter Results HIV 1/2 ANTIGEN AND ANTIBODY, 4TH GENERATION (09/24/2019 10:20 EST) HIV 1 and 2 Negative Negative [facility] Antibody/p24 Comment: LABORATORY Antigen, 4th SERVICES Generation If acute HIV-1 infection is suspected in a high risk ??patient, submit plasma specimen for HIV-1 RNA quantitation test. Fourth Generation assay performed on the [employer] ei [employer]a ur. Specimen Blood - Venous blood (substance) Performing Organization Address City/State/ZIP Code Phon e Number [facility] [address] [place] [address] SERVICES documented in this encounter Visit Diagnoses Not on filedocumented in this encounter
--- OUTSIDE RECORDS SUMMARY | 2022-04-14 23:25 | XMS_ITS | Encounter Summary ---
:1980 Author Organization [facility] Address [address] [place] [address] Care Team Providers Name Role Phone Unavailable Primary Care Provider Unavailable Encounter Details Date Type Department Care Team Description 06/30/2019 Lab Requisition [facility] Murali Raines, Right lower quadrant pain; Pathology & MD Change in bowel habit; Laboratory Medicine 6949 GOOD Diarrhea , unspecified - [facility] DAMARI JONAS [id number] [place] [id number] Social History Tobacco Use Types Packs/Day Years Used Date Never Assessed Sex Assigned at Date Recorded Not on file documented as of this encounter Plan of Treatment Not on filedocumented as of this encounter Procedures Procedure Name Priority Date/Time Associated Diagnosis Comme nts SURGICAL PATHOLOGY Today 06/27/2019 13:02 Right lower quadra nt Results for this EST pain procedure are in Change in bowel the results habit section. Diarrhea, unspecified documented in this encounter Results SURGICAL PATHOLOGY (06/27/2019 13:02 EST) Final Diagnosis A. SIGMOID COLON AND RECTUM, POLYPS, BIOPSIES: [facility] Electronically - Tubulovillous adenoma. CENTER sig racquel by Mars, - Hyperplastic polyps x 3. LABORATORY Carissa Gtz MD on - Additional fragments of extensively crushed/ca uterized colonic mucosa. SERVICES 07/02/2019 at 1059 Diagnosis Comment Deeper sections have been examined on block A1. [facility] SERVICES Clinical History Six polyps removed [facility] 2 mm proximal rectum CENTER 4 mm sigmoid LABORATORY R10.31 SERVICES R19.4 R19.7 Attestation By the signature [facility] MEDICAL Electronica lly below, the attending CENTER signed by Mars, physician certifies LABORATORY Cresencio Gtz MD on that they have SERVICES 07/02/2019 at 1059 personally conducted a gross and/or microscopic examination of the described specimens and rendered or confirmed the above diagnosis. Gross Description A. Received in formalin labe lled with proper patient identification (initials B, A) and rectal polyps x4 2 mm, 6 mm x 2 is an aggregate of pitts-brown tissue fragments (0.5 x 0.5 x 0.1 cm) and 4 pitts-bro [facility] wn polyps (0.7 x 0.6 x 0.3 c m to 1.1 x 0.7 x 0.4 cm). The polyps are sectioned and entirely submitted as follows: [facility] SERVICES A1- intact tissue fragments A2- 1 polyp, trisected A3- 1 polyp, trisected A4-A5- 1 polyp, quadrisected A6-A7- 1 polyp, serially sectioned Sara Denzer 06/30/2019 16:10 Scanned Images [facility]OR[facility]ORY SERVICES Specimen Tissue - Specimen from rectum (specimen) Performing Organization Address City/State/ZIP Code Phon e Number [facility] [address] [place] [address] SERVICES documented in this encounter Visit Diagnoses Diagnosis Right lower quadrant pain Abdominal pain, right lower quadrant Change in bowel habit Diarrhea, unspecified documented in this encounter
[2022-04-14] MEDS: Normal Saline 1,000 ML 1000 ML IV (23:35)
[2022-04-14 23:37] LABS: VALPROIC ACID 20.4 ug/mL
[2022-04-14 23:44] LABS: ALT 66 U/L (16-63); AST 31 U/L (15-37); Albumin 3.5 g/dL (3.4-5.0); Alkaline Phosphatase 62 U/L (46-116); Anion Gap 9.5 mmol/L (3-11); BUN 11 mg/dL (7-18); Bilirubin, Total 0.1 mg/dL (0.2-1.0); CO2 27.5 mmol/L (21.0-32.0); CREATININE 0.7 mg/dL (0.70-1.30); Calcium 8.3 mg/dL (8.5-10.1); Chloride 105 mmol/L (98-107); ETHANOL BLOOD 161.6 mg/dL (<10); Estimated GFR 116.52 (mL/min/1.73m2); Glucose 100 mg/dL (74-106); Potassium 3.7 mmol/L (3.5-5.1); Sodium 142 mmol/L (136-145); Total Protein 6.9 g/dL (6.4-8.2)
[2022-04-14] MEDS: lamoTRIgine 25 MG TAB PO (23:58)
[2022-04-14] MEDS: Divalproex 500 MG TABEC PO (23:58)
[2022-04-15] VITALS (42 sets, daily range): BP systolic 159; BP diastolic 97; PULSE 74–92; RESP 16–35; O2SAT 93–99
--- NOTE | 2022-04-15 00:33 | DI.VRAD_ITS ---
PROCEDURE INFORMATION: Exam: CT Head Without Contrast Exam date and time: 04/14/2022 11:42 PM Age: 42 years old Clinical indication: Injury or trauma; Other: Seizure, fall, ETOH; Injury date: 04/14/22 TECHNIQUE: Imaging protocol: Computed tomography of the head without contrast. Radiation optimization: All CT scans at this facility use at least one of these dose optimization techniques: automated exposure control; mA and/or kV adjustment per patient size (includes targeted exams where dose is matched to clinical indication); or iterative reconstruction. COMPARISON: CT HEAD CERVICAL SPINE WO 11/22/2019 12:08 PM . 05/27/2017. FINDINGS: Brain: No acute intracranial hemorrhage identified. Cerebral ventricles: No ventriculomegaly. Paranasal sinuses: Visualized sinuses are unremarkable. No fluid levels. Mastoid air cells: Visualized mastoid air cells are well aerated. Bones/joints: Unchanged sclerotic focus in the right skull, series 3, image 30. No acute fracture. Soft tissues: Unremarkable. IMPRESSION: 1. No acute intracranial hemorrhage identified. Other findings/details as above. Dictated and Authenticated by: Sabine Buchanan MD. Ordering:ALVA Bustillo MD
[2022-04-18 13:04] LABS: Lamotrigine 0.9 mcg/mL (2.5 - 15.0)
== END 2022-04-15 06:49 | disposition home or self-care (01) ==
PROVIDERS: Emergency Provider Student in an Organized Health Care Education/Training Program; PCP Nurse Practitioner Family
DX: R56.9 Unspecified convulsions (principal); F31.9 Bipolar disorder, unspecified; F17.210 Nicotine dependence, cigarettes, uncomplicated; Z91.14 Patient's other noncompliance with medication regimen
CPT/HCPCS: 80053; 80175; 96360; 99284; 70450; 80164; 80320; 85025

== ENCOUNTER 2022-10-19 17:38 | Emergency (ER) | payer MEDICAID, SELFPAY ==
[2022-10-19] VITALS (22 sets, daily range): BP systolic 139–148; BP diastolic 82–98; PULSE 76–106; RESP 10–21; TEMP 37.1–37.2; O2SAT 96–100
--- NOTE | 2022-10-19 17:30 | RT.EKG_ITS ---
APPROVED REPORT Exam: Resting ECG Reason for Exam: chest pain Patient Location: E HR:103 bpm ECG Measurements Heart Rate 103 AXIS AR 155 P 48 QRSd 109 QRS 66 QT 338 T 16 QTc 442 Conclusion Sinus tachycardia...rate> 99 Probable left atrial enlargement...P >50mS, <-0.10mV V1 ST elev, probable normal early repol pattern...ST elevation, age<55
--- NOTE | 2022-10-19 20:00 | DI.CT_ITS ---
Exam(s) CT CHEST PE CTA EXAM: CT CHEST PE CTA CLINICAL HISTORY: left chest pain, pleuritic, radiates to neck. TECHNIQUE: Imaging Protocol: Axial CT angiography was performed with multi-slice acquisition and mu lti-planar and/or 3D reconstructions. CONTRAST MATERIAL: Intravenous: Omnipaque 350 contrast volume:100 mL COMPARISON: CT CT CHEST PE CTA from 05/25/2020 FINDINGS: Tracheobronchial tree: Patent where visualized. Pulmonary parenchyma: No consolidation or dominant measurable mass. Emphysematous changes are seen in the lungs. There is a calcified granuloma in the right lower lobe. Dependent atelectatic changes a re seen in the lungs. Pulmonary Arteries: No evidence of filling defect to suggest pulmonary emboli. Mediastinum and Flores: No dominant adenopathy or fluid collection. The esophagus is unremarkable. Visualized thyroid gland: Unremarkable. Pleura: No effusion or pneumothorax. Heart: The heart is not dilated. Mild coronary artery calcification. No pericardial effusion. RV to LV ratio is less than 1. Aorta: Thoracic aorta non-dilated. No evidence of dissection. Upper abdomen: Unremarkable. Soft tissues: Unremarkable. Bones: Within normal limits for the patient's age. IMPRESSION: No evidence of pulmonary embolism, thoracic aortic dissection or aneurysm. RADIATION DOSE DELIVERED: 371.69mGy.cm Total DLP DATA REPOSITORY: All CT scans at this facility are submitted to the National Radiology Data Registry (NRDR) Dose Index Registry (DIR) with the [employer] (ACR). RADIATION OPTIMIZATION: All CT scans at this facility use at least one of these dose optimization te chniques: automated exposure control; mA and/or kV adjustment per patient size (includes targeted exa ms where dose is matched to clinical indication); or iterative reconstruction.
[2022-10-19 20:20] LABS: Abs Immature Grans 0.03 10^3/uL (0.0-0.06); Absolute Basophil Count 0.15 10^3/uL (0.0-0.2); Absolute Eosinophil Count 0.55 10^3/uL (0.0-0.7); Absolute Lymphocyte Count 4.15 10^3/uL (1.2-3.4); Absolute Monocyte Count 1.06 10^3/uL (0.1-0.8); Absolute Neutrophil Count 5.66 10^3/uL (1.2-6.7); Basophils % 1.3; Eosinophils % 4.7; HCT 44.2 % (40.0-50.0); HGB 15.3 g/dL (13.5-17.5); Immature Grans % 0.3; Lymphocytes % 35.8; MCH 30.5 pg (27.0-33.0); MCHC 34.6 % (32.0-36.0); MCV 88 fL (80-95); MPV 8.9 fL (8.0-11.0); Monocytes % 9.1; Neutrophils % 48.8; Platelet Count 237 10^3/uL (130-400); RBC 5.01 10^6/uL (4.36-5.78); RDW 13.8 % (11.8-14.1); RDW-SD 44.2 fL
[2022-10-19] MEDS: Acetaminophen 500 MG TAB 1000 MG PO (20:25)
[2022-10-19] MEDS: Aspirin 81 MG CHEW 324 MG CH (20:25)
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
[2022-10-19 20:35] LABS: PTT Activated 23.4 sec (21.5-31.9); Prothrombin Time 9.8 sec (9.3-11.0)
[2022-10-19 20:48] LABS: ALT 16 U/L (16-63); AST 7 U/L (15-37); Albumin 4.1 g/dL (3.4-5.0); Alkaline Phosphatase 79 U/L (46-116); BUN 15 mg/dL (7-18); Bilirubin, Total 0.2 mg/dL (0.2-1.0); CREATININE 0.9 mg/dL (0.70-1.30); Calcium 9.3 mg/dL (8.5-10.1); Chloride 105 mmol/L (98-107); Estimated GFR 108.01 (mL/min/1.73m2); Glucose 95 mg/dL (74-106); NT-proBNP 21 pg/mL (<300); Potassium 4.3 mmol/L (3.5-5.1); Sodium 144 mmol/L (136-145); Total Protein 7.6 g/dL (6.4-8.2); Troponin I < 50 ng/L (<or=60)
[2022-10-19] MEDS: Normal Saline - Diluent 50 ML VIAL IJ (21:01)
[2022-10-19] MEDS: Omnipaque 350 MG/ML 100 ML BTL IJ (21:01)
--- NOTE | 2022-10-19 21:24 | DI.VRAD_ITS ---
PROCEDURE INFORMATION: Exam: CTA Chest With Contrast Exam date and time: 10/19/2022 8:56 PM Age: 42 years old Clinical indication: Pain; Left-sided; Additional info: Left chest pain, pleuritic, radiates to neck TECHNIQUE: Imaging protocol: Computed tomographic angiography of the chest with contrast. 3D rendering (Not supervised by radiologist): MIP and/or 3D reconstructed images were created by the technologist. Radiation optimization: All CT scans at this facility use at least one of these dose optimization techniques: automated exposure control; mA and/or kV adjustment per patient size (includes targeted exams where dose is matched to clinical indication); or iterative reconstruction. Contrast material: OMNI 350; Contrast volume: 100 ml; Contrast route: INTRAVENOUS (IV); COMPARISON: CT CHEST PE CTA 05/25/2020 2:24 PM FINDINGS: Pulmonary arteries: Normal. No pulmonary emboli. Aorta: Unremarkable. No aortic aneurysm. No aortic dissection. Lungs: Mild emphysema. No consolidation. No masses. Pleural spaces: Unremarkable. No pneumothorax. No pleural effusion. Heart: Unremarkable. No cardiomegaly. No pericardial effusion. Lymph nodes: Unremarkable. No enlarged lymph nodes. Bones/joints: Unremarkable. No acute fracture. Soft tissues: Unremarkable. IMPRESSION: No pulmonary emboli noted Mild emphysema Dictated and Authenticated by: Yann Sheikh MD. Ordering:ALVA Bustillo MD
[2022-10-19] MEDS: nitroGLYcerin 0.4 MG TAB (21:49)
[2022-10-19] MEDS: Albuterol/Ipratropium 3 ML UPD VIAL UPD (22:11)
[2022-10-19 23:12] LABS: Troponin I < 50 ng/L (<or=60)
== END 2022-10-19 23:39 | disposition home or self-care (01) ==
PROVIDERS: Emergency Provider Student in an Organized Health Care Education/Training Program; PCP Nurse Practitioner Family
DX: K21.9 Gastro-esophageal reflux disease without esophagitis (principal); I10 Essential (primary) hypertension; J43.9 Emphysema, unspecified
CPT/HCPCS: 71275; 80053; 93005; 94640; 99285; 83735; 83880; 84484; 85025; 85610; 85730; 93010; 99284; J3490; J7620

== ENCOUNTER 2022-11-06 12:13 | Emergency (ER) | payer MEDICAID, SELFPAY ==
[2022-11-06] VITALS (52 sets, daily range): BP systolic 119–127; BP diastolic 69–71; PULSE 76–102; RESP 10–18; TEMP 36.6; O2SAT 94–98
--- NOTE | 2022-11-06 12:45 | DI.RAD_ITS ---
Exam(s) XR CHEST 2V PA LATERAL EXAM: XR CHEST 2V PA LATERAL CLINICAL HISTORY: Altered mental status TECHNIQUE: 2D digital imaging was performed. COMPARISON: CR XR CHEST 2V PA LATERAL from 05/25/[address] CHEST PE CTA from 10/19/2022 FINDINGS: HEART: Normal size. Aorta: Not dilated. PULMONARY VASCULATURE: Normal. LUNGS: Linear area of scarring in the lingula. Increased densities seen mainly on the lateral view s uspicious for infiltrate. PLEURAL SPACE: No pleural effusion or pneumothorax. BONE:Unremarkable for age. IMPRESSION: Left lower lobe infiltrate. DATA REPOSITORY: RADIATION DOSE DELIVERED:
--- NOTE | 2022-11-06 12:45 | DI.CT_ITS ---
Exam(s) CT HEAD WO EXAM: CT HEAD WO CLINICAL HISTORY: AMS. TECHNIQUE: Imaging Protocol: Axial computed tomography images with coronal and sagittal reformatted images were created and reviewed COMPARISON: CT CT HEAD WO from 04/14/2022 FINDINGS: Ventricles and Extra axial spaces: Normal in size and morphology for the patient's age. Hemorrhage: None. Cerebral parenchyma: Normal. Midline shift: None. Brainstem/Cerebellum: Normal. Calvarium: Normal. Visualized Paranasal sinuses/Mastoids: Clear. Soft Tissues: Unremarkable. IMPRESSION: No acute intracranial process. RADIATION DOSE DELIVERED: 764.33mGy.cm Total DLP DATA REPOSITORY: All CT scans at this facility are submitted to the National Radiology Data Registry (NRDR) Dose Index Registry (DIR) with the [employer] (A[employer]). RADIATION OPTIMIZATION: All CT scans at this facility use at least one of these dose optimization te chniques: automated exposure control; mA and/or kV adjustment per patient size (includes targeted exa ms where dose is matched to clinical indication); or iterative reconstruction.
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
[2022-11-06 13:17] LABS: Abs Immature Grans 0.03 10^3/uL (0.0-0.06); Absolute Basophil Count 0.07 10^3/uL (0.0-0.2); Absolute Eosinophil Count 0.41 10^3/uL (0.0-0.7); Absolute Lymphocyte Count 2.29 10^3/uL (1.2-3.4); Absolute Monocyte Count 0.74 10^3/uL (0.1-0.8); Absolute Neutrophil Count 5.73 10^3/uL (1.2-6.7); Basophils % 0.8; Eosinophils % 4.4; HCT 38.7 % (40.0-50.0); Immature Grans % 0.3; Lymphocytes % 24.7; MCH 29.7 pg (27.0-33.0); MCHC 33.6 % (32.0-36.0); MCV 89 fL (80-95); MPV 8.9 fL (8.0-11.0); Neutrophils % 61.8; Platelet Count 234 10^3/uL (130-400); RBC 4.37 10^6/uL (4.36-5.78); RDW 14.4 % (11.8-14.1); RDW-SD 46.6 fL; WBC 9.27 10^3/uL (4.4-10.8)
[2022-11-06 13:36] LABS: TSH (W/Ref FT4) 0.38 uIU/mL (0.36-3.74)
[2022-11-06 13:37] LABS: ALT 20 U/L (16-63); AST 37 U/L (15-37); Albumin 3.4 g/dL (3.4-5.0); Alkaline Phosphatase 61 U/L (46-116); Anion Gap 4.8 mmol/L (3-11); BUN 7 mg/dL (7-18); Bilirubin, Total 0.2 mg/dL (0.2-1.0); CO2 31.2 mmol/L (21.0-32.0); CREATININE 0.9 mg/dL (0.70-1.30); Calcium 8.9 mg/dL (8.5-10.1); Chloride 108 mmol/L (98-107); Estimated GFR 108.01 (mL/min/1.73m2); Glucose 107 mg/dL (74-106); Magnesium 1.8 mg/dL (1.8-2.4); Sodium 144 mmol/L (136-145); Total Protein 6.5 g/dL (6.4-8.2)
[2022-11-06 13:49] LABS: ETHANOL BLOOD < 3.0 mg/dL (<10)
[2022-11-06 14:07] LABS: Acetaminophen < 2 ug/mL (10-30); Salicylate 4.8 mg/dL (<2.8)
[2022-11-06 14:11] LABS: Bilirubin Negative (Negative); Blood Negative (Negative); Clarity Clear (Clear); Glucose Negative (Negative); Ketones Negative (Negative); Leukocyte Esterase Negative (Negative); Nitrite Negative (Negative); Specific Gravity 1.025 (1.005-1.025); pH 6.5 (5-8)
--- NOTE | 2022-11-06 14:15 | RT.EKG_ITS ---
APPROVED REPORT Exam: Resting ECG Reason for Exam: Altered Mental Status Patient Location: E HR:87 bpm ECG Measurements Heart Rate 87 AXIS RI 165 P 42 QRSd 113 QRS 58 QT 385 T 41 QTc 463 Conclusion Sinus rhythm...normal P axis, V-rate 60- 99 Incomplete left bundle branch block...QRSd>110mS, terminal axis(-90,-1) ST elev, probable normal early repol pattern...ST elevation, age<55 sinus rhythm, normal axis, non ischemic
[2022-11-06 14:24] LABS: *AMPHETAMINES SCREEN URINE Positive (Negative); *BARBITURATES SCREEN URINE Negative (Negative); *BENZODIAZEPINES SCREEN URINE Negative (Negative); Cannabinoids THC Positive (Negative); Cocaine Screen,Urine Positive (Negative); METHADONE URINE SCREEN Negative (Negative); OPIATES URINE SCREEN Negative (Negative); Tricyclic Antidepressants Positive (Negative)
[2022-11-06] MEDS: cefTRIAXone 1 GM/50 ML BAG IVPB (14:55)
[2022-11-06] MEDS: Albuterol HFA 8 GM 60 PUFF INH IH (14:55)
[2022-11-06] MEDS: Doxycycline Hyclate 100 MG CAP PO (14:55)
--- NOTE | 2022-11-06 15:46 | NUR.NOTE ---
pts very upset and rude to this RN while reading discharge instructions that stated the cocaine in his system may be contributing to his symptoms.
--- NOTE | 2022-11-07 16:42 | NUR.NOTE ---
Nursing Note: Accessed chart to determine orders for EKG and to determine whether or not one needs to be cancelled.
[2022-11-09 13:06] LABS: Lamotrigine 5.9 mcg/mL (3.0-15.0)
== END 2022-11-06 15:49 | disposition home or self-care (01) ==
PROVIDERS: Emergency Provider Registered Nurse Emergency; PCP Nurse Practitioner Family
DX: R41.82 Altered mental status, unspecified (principal); J18.9 Pneumonia, unspecified organism; F19.90 Other psychoactive substance use, unspecified, uncomplicated; G40.909 Epilepsy, unspecified, not intractable, without status epilepticus; F17.210 Nicotine dependence, cigarettes, uncomplicated
CPT/HCPCS: 36415; 80053; 80175; 80307; 93005; 94640; 96365; 99284; 70450; 71046; 80320; 80329; 81003; 83735; 84443; 85025; 93010; J0696

== ENCOUNTER 2023-12-20 16:02 | Emergency (ER) | payer MEDICAID, SELFPAY ==
[2023-12-20 16:08] VITALS: BP 148/66; PULSE 81; RESP 16; TEMP 37; O2SAT 97
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
--- NOTE | 2023-12-20 16:32 | NUR.NOTE ---
[facility] due to back pain within the week.
[2023-12-20] MEDS: Ketorolac 30 MG/ML VIAL IM (16:34)
[2023-12-20] MEDS: Lidocaine 5% Patch 1 PATCH TP (16:35)
== END 2023-12-20 16:44 | disposition home or self-care (01) ==
LOC: ER 16:55
PROVIDERS: Emergency Provider Nurse Practitioner Family; PCP Nurse Practitioner Family
DX: M54.50 Low back pain, unspecified (principal); I10 Essential (primary) hypertension; E78.5 Hyperlipidemia, unspecified; F17.210 Nicotine dependence, cigarettes, uncomplicated
CPT/HCPCS: 96372; 99284; 99283; J1885

== ENCOUNTER 2023-12-31 14:56 | Emergency (ER) | payer MEDICAID, SELFPAY ==
[2023-12-31 15:03] VITALS: BP 161/92; PULSE 88; RESP 16; TEMP 36.6; O2SAT 100
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
[2023-12-31] MEDS: HYDROmorphone 2 MG/ML SYR 1 MG IM ×2 (15:28→17:57)
[2023-12-31] MEDS: Ketorolac 15 MG/ML VIAL IM (15:29)
--- NOTE | 2023-12-31 16:00 | DI.MRI_ITS ---
Exam(s) MR LUMBAR SPINE WO EXAM: MR LUMBAR SPINE WO CLINICAL HISTORY: lower back pain, leg numbness. TECHNIQUE: Multiplanar multisequence MRI of the Lumbar spine was performed. COMPARISON: None. There are no plain films of the lumbar spine available time this MRI interpretati on. FINDINGS: Five lumbar vertebrae are presumed. Conus medullaris is at normal level. There is no evidence of conus mass nor subjacent clumping of in trathecal nerve roots to suggest arachnoiditis. The distal thecal sac appears unremarkable.There is no evidence of Tarlov intrasacral cysts nor other significant findings within the sacral canal Bones:There are no fractures nor ominous osseous lesions in the lumbar vertebral bodies and visualize d sacrum. With respect to the individual levels... T12-L1: Unremarkable L1-2: Normal disc height and signal. No disc herniation nor central canal stenosis.No foraminal steno sis L2-3: Normal disc height. No disc herniation nor central canal stenosis.No foraminal stenosis.No face t arthropathy. L3-4: Normal disc height. Mild symmetrical annular bulging without a dominant disc herniation. Ther e is mild central spinal canal stenosis which is mostly related to developmental short AP dimensions of the pedicles. This patient has a developmentally small canal. No foraminal stenosis.No prominent facet are proper the. L4-5: Normal disc height and signal. However, there is a broad central-left paracentral disc herniat ion which extends posteriorly 4 mm and is approximately 3.7 cm wide and significantly compresses the thecal sac resulting in severe spinal canal stenosis at this level, compound by this patient is devel opmentally small canal (short AP dimensions the pedicles). The disc protrusion extends into the floo r of the exiting left neural foramen and there is mild-moderate left-sided foraminal stenosis. On th e opposite-right side there is no obvious foraminal stenosis. Facet joints appear unremarkable. L5-S1: Relatively small but otherwise normal appearing disc. This is related to the fact that the L5 vertebra appears partially sacralized. No disc herniation no central canal stenosis. No foraminal stenosis at this level. Soft tissues: paraspinal soft tissues appear unremarkable. IMPRESSION: 1. The main findings here are at L4-5 level where there is a significant disc herniations described a joshua, this significantly compressing the thecal sac and resulting in severe central spinal canal sten osis and mild left-sided foraminal stenosis. This is superimposed upon an already cyst developmental ly small central canal dimension. 2. There is no significant facet arthropathy in the lumbosacral levels. 3. No abnormal intraosseous signal. Report called by myself to ER provider DATA REPOSITORY:
[2023-12-31 16:21] VITALS: BP 148/91; PULSE 80; RESP 15; TEMP 36.4; O2SAT 98
[2023-12-31 17:20] VITALS: BP 152/99; PULSE 82; RESP 16; TEMP 36.6; O2SAT 100
[2023-12-31 18:37] VITALS: BP 150/93; PULSE 80; RESP 16; O2SAT 100
[2023-12-31] MEDS: Dexamethasone 4 MG TAB PO (19:09)
[2023-12-31 19:12] VITALS: BP 164/101; PULSE 78; RESP 16; O2SAT 100
--- NOTE | 2023-12-31 20:28 | NUR.NOTE ---
[facility] Neuro Surgery referral sent for lumbar to be seen in 1-[address] Ventura.
== END 2023-12-31 19:17 | disposition home or self-care (01) ==
PROVIDERS: Emergency Provider Physician Assistant; PCP Nurse Practitioner Family
DX: M54.50 Low back pain, unspecified (principal); M51.16 Intervertebral disc disorders with radiculopathy, lumbar region; I10 Essential (primary) hypertension
CPT/HCPCS: 96374; 96375; 96376; 99284; 72148; 99283; J1170; J1885; J8540

== ENCOUNTER 2024-08-27 19:24 | Outpatient (REF) | payer OTHER, SELFPAY ==
[2024-08-27 14:28] LABS: Abs Immature Grans 0.04 10^3/uL (0.0-0.06); Absolute Basophil Count 0.16 10^3/uL (0.0-0.2); Absolute Eosinophil Count 0.13 10^3/uL (0.0-0.7); Absolute Lymphocyte Count 2.35 10^3/uL (1.2-3.4); Absolute Monocyte Count 0.51 10^3/uL (0.1-0.8); Basophils % 1.5 %; Eosinophils % 1.2 %; HCT 48.5 % (40.0-50.0); HGB 15.9 g/dL (13.5-17.5); Immature Grans % 0.4 %; Lymphocytes % 22.2 %; MCH 29.4 pg (27.0-33.0); MCHC 32.8 % (32.0-36.0); MCV 90 fL (80-95); MPV 9.4 fL (8.0-11.0); Monocytes % 4.8 %; Neutrophils % 69.9 %; Platelet Count 391 10^3/uL (130-400); RBC 5.41 10^6/uL (4.36-5.78); RDW 13.4 % (11.8-14.1); RDW-SD 44.6 fL; WBC 10.59 10^3/uL (4.4-10.8)
[2024-08-27 14:32] LABS: ALT 14 U/L (16-63); AST 11 U/L (15-37); Albumin 4.2 g/dL (3.4-5.0); Alkaline Phosphatase 105 U/L (46-116); Anion Gap 7.1 mmol/L (3-11); BUN 10 mg/dL (7-18); Bilirubin, Total 0.31 mg/dL (0.2-1.0); CO2 31.9 mmol/L (21.0-32.0); CREATININE 0.7 mg/dL (0.70-1.30); Chloride 102 mmol/L (98-107); Estimated GFR 115.08 (mL/min/1.73m2); Glucose 96 mg/dL (74-106); Potassium 4.8 mmol/L (3.5-5.1); Sodium 141 mmol/L (136-145); Total Protein 7.9 g/dL (6.4-8.2)
[2024-08-27 14:36] LABS: PTT Activated 23.3 sec (20.6-30.2); Prothrombin Time 10.3 sec (9.1-11.1)
== END 2024-08-27 19:25 | disposition home or self-care (01) ==
LOC: NCHCN 19:24
PROVIDERS: PCP Nurse Practitioner Family; Visit Provider Nurse Practitioner Family
DX: Z01.818 Encounter for other preprocedural examination (principal)
CPT/HCPCS: 80053; 85025; 85610; 85730

== ENCOUNTER 2024-09-08 16:37 | Outpatient (CLI) | payer MEDICAID, SELFPAY ==
--- NOTE | 2024-09-08 | DI.RAD_ITS ---
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 TECHNIQUE: 2D digital imaging was performed. COMPARISON: MR MR LUMBAR SPINE WO from 12/31/2023 FINDINGS: Two lateral views-flexion and extension: No evidence of fracture and there is no listhesis with flexion nor with extension. No significant di sc space narrowing evident. IMPRESSION: No listhesis upon flexion extension. Please note that lumbar spine MRI performed 12/31/2023 revealed significant disc herniation at L4-5 l evel resulting in severe central spinal canal stenosis and mild left-sided foraminal stenosis. DATA REPOSITORY: RADIATION DOSE DELIVERED:
--- NOTE | 2024-09-08 17:42 | DI.VRAD_ITS ---
PROCEDURE INFORMATION: Exam: XR Lumbosacral Spine Exam date and time: 09/08/2024 5:12 PM Age: 44 years old Clinical indication: Other: Spinal stenosis of lumbar region w/neurogenic claudication TECHNIQUE: Imaging protocol: Radiologic exam of the lumbosacral spine. Views: 2 or 3 views. COMPARISON: MR LUMBAR SPINE WO 12/31/2023 3:35 PM FINDINGS: Bones/joints: There is straightening of the lumbar lordosis which can be seen in the setting of muscle spasm. No subluxations are identified on either flexion or extension. There is mild anterior wedging of the T11, L3 and L4 vertebra, likely chronic. No acute compression fractures or displaced fractures are identified. The disc spaces are maintained. There is mild endplate degenerative spurring at multiple levels consistent with mild degenerative disc disease. Soft tissues: Unremarkable. IMPRESSION: 1. No subluxation identified on flexion or extension. 2. Mild degenerative changes of the lower thoracic and lumbar spine, as described above. 3. Straightening of lumbar lordosis which can be seen in the setting of muscle spasm. Recommend clinical correlation. Dictated and Authenticated by: Jimmie Gandhi MD. Orderin Segun Lerner MD
== END 2024-09-08 16:57 ==
LOC: DI 16:38
PROVIDERS: PCP Nurse Practitioner Family; Visit Provider Orthopaedic Surgery
DX: M48.062 Spinal stenosis, lumbar region with neurogenic claudication (principal)
CPT/HCPCS: 72120

== ENCOUNTER 2024-12-15 04:15 | Emergency (ER) | payer MEDICAID, SELFPAY ==
[2024-12-15 04:23] VITALS: BP 195/114; PULSE 77; RESP 20; TEMP 36.1; O2SAT 99
[2024-12-15 04:35] VITALS: BP 192/110
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
== END 2024-12-15 04:45 | disposition home or self-care (01) ==
PROVIDERS: Emergency Provider Student in an Organized Health Care Education/Training Program; PCP Nurse Practitioner Family
DX: I10 Essential (primary) hypertension; R46.2 Strange and inexplicable behavior
CPT/HCPCS: 99283; 99285